=== PATIENT | male | born 1950 | race Caucasian/White ===

== ENCOUNTER 2019-05-07 10:21 | Outpatient (CLI) | payer OTHER, MEDICARE, SELFPAY ==
--- NOTE | 2019-05-07 10:39 | USCV_ITS ---
Mei Mathews Age: 68 Gender: M : 1950 Exam Date: 05/07/2019 11:05 Ordering Phys: Angel Cancino MD (Andy) ([email or web address]) Technologist: Quang Daniel Exam Location: [facility] [place] Indication: HISTORY: PAD PROCEDURES: Bilateral duplex Venous Insufficiency study of the Deep and Superficial systems was carried out according to normal protocol with the patient in supine positon for deep system and dependent position for the superficial system. FINDINGS: There is no evidence of bilateral deep vein thrombosis. No evidence of superficial thrombosis in the bilateral saphenous system. No evidence of reflux was noted in the bilateral deep venous system. No venous reflux noted in the bilateral greater saphenous vein. No venous reflux noted in the bilateral small saphenous vein. CONCLUSIONS No evidence of DVT in the above-mentioned identifiable veins. No significant venous reflux either in the deep or the superficial venous system, based on the above findings Venous dimensions and depth from the surface are as mentioned above Dr Mallorie Harmon MD FACC (Electronically Signed) Final Date: 08 May 2019 07:38 S
== END 2019-05-07 10:22 | disposition home or self-care (01) ==
LOC: RAD 10:30
PROVIDERS: Family Provider Internal Medicine; PCP Internal Medicine; Visit Provider Thoracic Surgery (Cardiothoracic Vascular Surgery)
DX: I73.9 Peripheral vascular disease, unspecified (principal); M79.605 Pain in left leg; M79.604 Pain in right leg
CPT/HCPCS: 93970

== ENCOUNTER 2020-03-07 10:08 | Outpatient (CLI) | payer OTHER, MEDICARE, SELFPAY ==
--- NOTE | 2020-03-07 10:26 | NM_ITS ---
WS: [id number] NUCLEAR MEDICINE VENTILATION/PERFUSION LUNG SCAN HISTORY: SHORTNESS OF BREATH COMPARISON: 03/07/2020 TECHNIQUE: Ventilation: 32.5 mCi of Technetium 99 DTPA aerosol inhaled. Perfusion: 5.2 mCi of technetium 99m MAA IV. Deposition of radionuclide centrally seen on the ventilatory portion. There is also radioisotope in t he upper GI tract. No unmatched defects at the lung bases. Blunting of the costophrenic angles which is matched. NM/NM pul vent and perfus* [id number] IMPRESSION: Low probability pulmonary embolism.
--- NOTE | 2020-03-07 10:26 | XR_ITS ---
WS: [id number] Exam: XR chest 2V* [id number] Date/Time of Exam: 03/07/2020 10:26 AM Reason For Exam: PRIOR TESTING TO NM TESTING/?PE No priors. The lungs are clear and fully inflated. Normal cardiomediastinal structures and bony elements. No ple ural effusions. XR/XR chest 2V* [id number] IMPRESSION: 1. No acute cardiopulmonary finding.
== END 2020-03-07 10:09 | disposition home or self-care (01) ==
PROVIDERS: PCP Emergency Medicine Emergency Medical Services; Visit Provider Emergency Medicine Emergency Medical Services
DX: R06.02 Shortness of breath (principal)
CPT/HCPCS: 71046; 78014; A9540; A9567

== ENCOUNTER 2020-03-25 09:40 | Observation (INO) | payer OTHER, SELFPAY ==
[2020-03-25] VITALS (10 sets, daily range): BP systolic 141–188; BP diastolic 79–99; PULSE 84–96; RESP 20–25; TEMP 36.4–36.7; O2SAT 92–96; BMI 25.8
[2020-03-25 10:13] LABS: Glucose Point of Care 214 mg/dL (70-110)
--- NOTE | 2020-03-25 10:20 | CT_ITS ---
WS: [id number] CT HEAD NONCONTRAST HISTORY: LOC/new onset seizure TECHNIQUE: Contiguous axial imaging performed through the brain in 2.5 mm imaging. Bone and soft tiss ue windows. Sagittal and coronal reformats reviewed. All CT scans at [facility] use at le ast one of these dose optimization techniques: automated exposure control; mA and/or kV adjustment pe r patient size (includes targeted exams where dose is matched to clinical indication); or iterative r econstruction. DLP: 2727.23 mGy.cm COMPARISON: None available. Quality of this study is limited by motion. Multiple attempts were made at achieving a study without motion. Mild atrophy and chronic ischemic disease. No evidence for an acute hemorrhage. There is no m idline shift. No large territory infarct. Bilateral cerebellar atrophy. Ventricles: Normal size with no hydrocephalus. Extensive atherosclerotic plaque in the distal vertebral and through the intracranial carotid arterie s. Paranasal sinuses: As visualized are clear. Mastoid air cells: Coalescence of the mastoid air cells with increased soft tissue. Significant incre ased soft tissue surrounding the LEFT inner ear ossicles. Calvarium and scalp: Skull is intact with no soft tissue edema or swelling. CT/CT head wo con* [id number] IMPRESSION: 1. No acute intracranial hemorrhage or edema. 2. Cerebral and cerebellar atrophy and chronic ischemic disease. No acute sulc al effacement. 3. Extensive atherosclerosis distal vertebral and intracranial carotid arterie s.
--- NOTE | 2020-03-25 10:20 | ECG_ITS ---
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 Measurements Intervals [place] Rate: 89 P: 16 MA: 121 QRS: -29 QRSD: 110 T: 76 QT: 368 QTc: 450 Interpretive Statements SINUS RHYTHM BORDERLINE LEFT AXIS DEVIATION [QRS AXIS < -20] MODERATE VOLTAGE CRITERIA FOR LVH, CONSIDER NORMAL VARIANT [MEETS CRITERIA IN ONE OF: R(aVL), S(V1), R(V5), R(V5/V6)+S(V1)] NONSPECIFIC T-WAVE ABNORMALITY No previous ECG available for comparison Electronically Signed On 03-25-2020 15:17:09 LEGAL ASSISTANT by Jazlyn Downing M.D. [id number]
[2020-03-25 10:22] LABS: Alanine Aminotransferase 51 U/L (0-41); Albumin Level 4.4 g/dL (3.5-5.2); Alkaline Phosphatase 64 IU/L (40-130); Anion Gap 20.2 (5-19); Aspartate Amino Transferase 30 U/L (0-40); Blood Urea Nitrogen 13 mg/dL (8-23); Calcium 9.2 mg/dL (8.5-10.5); Carbon Dioxide 20 mmol/L (22-29); Chloride 103 mmol/L (98-107); Creatine Phosphokinase 187 U/L (39-308); Globulin 2.3 g/dL (1.3-4.6); Glucose 235 mg/dL (65-115); Magnesium 1.7 mg/dL (1.7-2.3); Osmolality Calculated 296 mOsm/kg (285-295); Potassium 4.2 mmol/L (3.5-5.1); Sodium 139 mmol/L (136-145); Total Bilirubin 0.4 mg/dL (0.15-1.2); Total Protein 6.7 g/dL (6.6-8.7)
--- NOTE | 2020-03-25 10:27 | ED_ITS ---
HPI - Seizure General: Chief Complaint: Seizure Stated Complaint: SHAKING, SEIZURE Time Seen by Provider: 03/25/20 09:48 History of Present Illness: HPI Narrative: 69-year-old male presents emergency room via EMS. This morning he was reaching up to a shelf above the level of his head and felt like he could not move his right arm seem to be locked in the place he called out to his to help him then he seemed to feel like he was going to pass out she lowered him to the ground at that point he did actually pass out had tonic-clonic convulsive movements that lasted she said for up to 15 minutes. He did not bite his tongue he did not lose control of bowel or bladder. He does not remember all of the events but he did not really have any significant postevent confusion that would resemble post ictal state. MD complaint: possible seizure Onset (ago): minute(s) Description of Episode: loss of consciousness and tonic-clonic movement Duration of episode: 15 -: minutes(s) Witnessed: Yes - by Bystander Trauma: No Seizure History: No Place: Home Possible Precipitating Event: none Associated symptoms: Reports short of breath; Deny chest pain, chills, confusion, cough, diaphoresis, fever(s), anorexia, malaise, rash, syncope or weakness Treatments prior to arrival: none Review of Systems Const: Denies: fever(s), chills, malaise or diaphoresis ENMT: Denies: throat pain, ear or mastoid pain, nasal discharge or nasal congestion Card: Denies: chest pain or syncope Resp: Denies: dyspnea, productive cough or non-productive cough GI: Denies: abdominal pain, nausea, vomiting, hematemesis, coffee ground emesis, diarrhea, constipation, bloating, hematochezia or melena : Denies: flank pain, dysuria, urinary frequency or urinary urgency Skin/Breast: Denies: rash or pruritus Neuro: Denies: confusion PFSH ED PFSH: Medical History (Updated 03/25/20 @ 14:06 by Shorty Sadler DO) Diabetes mellitus Hypertension Sleep apnea Ventral hernia Surgical History (Updated 03/25/20 @ 10:40 by Shorty Sadler DO) H/O total hip arthroplasty Physical Exam Const: COMMON NORMALS: no acute distress GENERAL APPEARANCE: cooperative and comfortable ORIENTATION/CONSCIOUSNESS: Yes awake, Yes oriented to person, Yes oriented to place and Yes oriented to time HENMT: COMMON NORMALS: normocephalic, atraumatic and hearing grossly normal bilaterally HEAD & SCALP: normocephalic and atraumatic Neck/C-Spine: COMMON NORMALS: no JVD Resp: COMMON NORMALS: normal respiratory effort, No retractions, No use of accessory muscles and clear to auscultation bilaterally AUSCULTATION: clear to auscultation bilaterally Cardio: COMMON NORMALS: no JVD, regular rate, regular rhythm and No murmurs present (Cardio) RATE: regular rate RHYTHM: regular rhythm GI: COMMON NORMALS: Soft to palpation and No hepatosplenomegaly present AUSCULTATION: Yes normoactive bowel sounds PALPATION: Yes Soft to palpation, No Tenderness to palpation present (GI), No Guarding due to palpation present (GI) and Yes No hepatosplenomegaly present Extremity: COMMON NORMALS: normal to inspection, capillary refill normal, no clubbing, cyanosis or edema, no calf tenderness and no pedal edema Neuro: SENSORIUM/ORIENTATION: Yes oriented to person, Yes oriented to place and Yes oriented to time Skin: COMMON NORMALS: no rashes or lesions noted GENERAL SKIN EXAM: no rashes or lesions noted Course Vital Signs: Vital signs: Vital Signs Temperature 97.5 F L 03/25/20 09:41 Pulse Rate 96 03/25/20 13:00 Respiratory Rate 25 H 03/25/20 13:00 Blood Pressure 152/99 03/25/20 13:00 Pulse Oximetry 95 03/25/20 13:00 MDM - Seizure 2 MDM Narrative: Medical decision making narrative: Delta troponin of 6. His CPK is normal. I suspect he may have had a vasovagal episode after some orthostatic hypotension. He is not really had any chest pain but the delta troponin is enough to put him into an immediate risk category and he should be monitored overnight to rule out coronary source. He may need further evaluation for his possible seizure. He has a heart score of 5. We will go ahead and put him in observation for completion of the troponin rule out and further cardiac evaluation. Lab Data: Labs: Lab Results 03/25/20 03/25/20 03/25/20 Range/Units 09:50 09:50 09:50 WBC 8.2 (4.0-10.0) 10^3/ uL RBC 5.07 (4.1-5.3) 10^6/u L Hgb 15.3 (11.7-16.6) g/dL Hct 44.4 (42.0-52.0) % MCV 87.6 (80-94) fL MCH 30.2 (28.0-34.0) pg MCHC 34.5 (30.0-36.0) g/dL RDW 13.0 (12.1-15.1) % Plt Count 169 (130-400) 10^3/c mm MPV 10.3 (7.4-10.4) fL Neut % (Auto) 44.4 % Lymph % (Auto) 44.3 % Leake % (Auto) 8.5 % Eos % (Auto) 1.3 % Baso % (Auto) 0.8 % Neut # (Auto) 3.65 (1.8-7.7) 10^3/u L Lymph # (Auto) 3.7 (0.8-4.8) 10^3/u L Leake # (Auto) 0.7 (0.2-0.9) 10^3/u L Eos # (Auto) 0.1 (0.0-0.8) 10^3/u L Baso # (Auto) 0.1 (0.0-0.1) 10^3/u L Nucleated RBC % (a uto) 0 % Nucleated RBCs # 0.0 /100WBC Sodium 139 (136-145) mmol/L Potassium 4.2 (3.5-5.1) mmol/L Chloride 103 (98-107) mmol/L Carbon Dioxide 20 L (22-29) mmol/L Anion Gap 20.2 H (5-19) BUN 13 (8-23) mg/dL Creatinine 0.9 (0.7-1.2) mg/dL GFR Calculation Not Reportable Glucose 235 H (65-115) mg/dL POC Glucose (70-110) mg/dL Calculated Osmolal ity 296 H (285-295) mOsm/k g Calcium 9.2 (8.5-10.5) mg/dL Magnesium 1.7 (1.7-2.3) mg/dL Total Bilirubin 0.4 (0.15-1.2) mg/dL AST 30 (0-40) U/L ALT 51 H (0-41) U/L Alkaline Phosphata se 64 (40-130) IU/L Creatine Kinase 187 (39-308) U/L Troponin T Baselin e 30 H (0-15) ng/L Troponin T 120 Min [place] (0-15) ng/L Delta Troponin T (0-10) ABS# Total Protein 6.7 (6.6-8.7) g/dL Albumin 4.4 (3.5-5.2) g/dL Globulin 2.3 (1.3-4.6) g/dL Urine Color (Yellow) Urine Appearance (CLEAR) Urine pH (5-7) Ur Specific Gravit y (1.005-1.030) Urine Protein (Negative) Urine Glucose (UA) (Normal) Urine Ketones (Negative) Urine Blood (Negative) Urine Nitrate (Negative) Urine Bilirubin (Negative) Urine Urobilinogen (Negative) mg/dL Ur Leukocyte Hyun ase (Negative) Urine RBC (0-2) /hpf Urine WBC (0-5) /hpf Ur Squamous Epith Cells (0-5) /hpf Amorphous Sediment Urine Bacteria (NONE) /hpf Urine Mucus /hpf 03/25/20 03/25/20 03/25/20 Range/Units 10:04 12:30 12:55 WBC (4.0-10.0) 10^3/ uL RBC (4.1-5.3) 10^6/u L Hgb (11.7-16.6) g/dL Hct (42.0-52.0) % MCV (80-94) fL MCH (28.0-34.0) pg MCHC (30.0-36.0) g/dL RDW (12.1-15.1) % Plt Count (130-400) 10^3/c mm MPV (7.4-10.4) fL Neut % (Auto) % Lymph % (Auto) % Leake % (Auto) % Eos % (Auto) % Baso % (Auto) % Neut # (Auto) (1.8-7.7) 10^3/u L Lymph # (Auto) (0.8-4.8) 10^3/u L Leake # (Auto) (0.2-0.9) 10^3/u L Eos # (Auto) (0.0-0.8) 10^3/u L Baso # (Auto) (0.0-0.1) 10^3/u L Nucleated RBC % (a uto) % Nucleated RBCs # /100WBC Sodium (136-145) mmol/L Potassium (3.5-5.1) mmol/L Chloride (98-107) mmol/L Carbon Dioxide (22-29) mmol/L Anion Gap (5-19) BUN (8-23) mg/dL Creatinine (0.7-1.2) mg/dL GFR Calculation Glucose (65-115) mg/dL POC Glucose 214 (70-110) mg/dL Calculated Osmolal ity (285-295) mOsm/k g Calcium (8.5-10.5) mg/dL Magnesium (1.7-2.3) mg/dL Total Bilirubin (0.15-1.2) mg/dL AST (0-40) U/L ALT (0-41) U/L Alkaline Phosphata se (40-130) IU/L Creatine Kinase (39-308) U/L Troponin T Baselin e (0-15) ng/L Troponin T 120 Min [place] 36.42 H (0-15) ng/L Delta Troponin T 6.42 (0-10) ABS# Total Protein (6.6-8.7) g/dL Albumin (3.5-5.2) g/dL Globulin (1.3-4.6) g/dL Urine Color Yellow (Yellow) Urine Appearance Clear (CLEAR) Urine pH 5 (5-7) Ur Specific Gravit y 1.020 (1.005-1.030) Urine Protein 1+ H (Negative) Urine Glucose (UA) 2+ (Normal) Urine Ketones 1+ H (Negative) Urine Blood Neg (Negative) Urine Nitrate Negative (Negative) Urine Bilirubin Neg (Negative) Urine Urobilinogen Norm (Negative) mg/dL Ur Leukocyte Hyun ase Negative (Negative) Urine RBC None (0-2) /hpf Urine WBC None (0-5) /hpf Ur Squamous Epith Cells 0-4 H (0-5) /hpf Amorphous Sediment Not Reportable Urine Bacteria Trace (NONE) /hpf Urine Mucus 1+ /hpf Discharge Plan Discharge Patient Disposition: Placed in Observation Clinical Impression: Elevated troponin, Diabetes mellitus, Hypertension, Sleep apnea, Generalized seizure Condition: Stable Prescriptions: No Action multivitamin Tablet 1 tab PO DAILY RF: 0 Lantus U-100 Insulin 100 unit/mL Solution See Rx Instructions .ROUTE .COMPLEX RF: 0 metoprolol succinate 200 mg Tablet Extended Release 24 Hr 100 mg PO DAILY@05 RF: 0 glipizide 10 mg Tablet 10 mg PO BID@ RF: 0 Mobic 7.5 mg Tablet See Rx Instructions .ROUTE .COMPLEX RF: 0 metformin 1,000 mg Tablet 1,000 mg PO BID@, RF: 0 lisinopril 40 mg Tablet 60 mg PO DAILY@05 RF: 0 Flonase 50 mcg/actuation [place],Suspension 1 - 2 spray INTRANASAL DAILY PRN (Reason: Allergy Symptoms) RF: 0 Vitamin D3 50 mcg (2,000 unit) Tablet 50 mcg PO DAILY@05 RF: 0 Referrals: Nir Moralez DO [Primary Care Provider] - Coding Level of Care Code ED Geospatial Engineer for g Fwd Exam Comprehensive NIH stroke score NIHSS Level Of Consciousness - 1a: 0 Level Of Consciousness Questions - 1b: Both Correct Level Of Consciousness Commands - 1c: Both Correct Best Gaze - 2: Normal Visual Claros - 3: No Visual Loss Facial Palsy - 4: Normal Motor Arm Right - 5: No Drift Motor Arm Left - 5: No Drift Motor Leg Right - 6: No Drift Motor Leg Left - 6: No Drift Limb Ataxia - 7: Absent Sensory - 8: Normal Best Language - 9: No Aphasia Dysarthia - 10: Normal Extinction And Inattention - 11: 0 Score Total Score: 0
[2020-03-25 10:30] LABS: Basophils # 0.1 10^3/uL (0.0-0.1); Basophils % 0.8 %; Eosinophils # 0.1 10^3/uL (0.0-0.8); Eosinophils % 1.3 %; Hematocrit 44.4 % (42.0-52.0); Hemoglobin 15.3 g/dL (11.7-16.6); Lymphocytes # 3.7 10^3/uL (0.8-4.8); Lymphocytes % 44.3 %; Mean Corpuscular HGB Conc 34.5 g/dL (30.0-36.0); Mean Corpuscular Hemoglobin 30.2 pg (28.0-34.0); Mean Corpuscular Volume 87.6 fL (80-94); Mean Platelet Volume 10.3 fL (7.4-10.4); Monocytes # 0.7 10^3/uL (0.2-0.9); Monocytes % 8.5 %; Neutrophils # 3.65 10^3/uL (1.8-7.7); Neutrophils % 44.4 %; Nucleated Red Blood Cells % 0 %; Platelet Count 169 10^3/cmm (130-400); Red Blood Count 5.07 10^6/uL (4.1-5.3); White Blood Count 8.2 10^3/uL (4.0-10.0)
[2020-03-25 10:44] LABS: Troponin(5th) Baseline 30 ng/L (0-15)
--- NOTE | 2020-03-25 12:20 | ECG_ITS ---
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 Measurements Intervals [place] Rate: 89 P: 26 ME: 167 QRS: -23 QRSD: 110 T: 84 QT: 363 QTc: 444 Interpretive Statements SINUS RHYTHM BORDERLINE LEFT AXIS DEVIATION [QRS AXIS < -20] MINIMAL VOLTAGE CRITERIA FOR LVH, CONSIDER NORMAL VARIANT [MEETS CRITERIA IN ONE OF: R(aVL), S(V1), R(V5), R(V5/V6)+S(V1)] NONSPECIFIC T-WAVE ABNORMALITY Compared to ECG 03/25/2020 10:08:09 No significant changes Electronically Signed On 03-25-2020 17:13:07 MOTOR POLARIZER by Jazlyn Downing M.D. [id number]
[2020-03-25 13:00] LABS: Add Urine Microscopic? YES; Bilirubin Urine Neg (Negative); Blood Urine Neg (Negative); Glucose Urine UA 2+ (Normal); Ketones Urine 1+ (Negative); Leukocyte Esterase Urine Negative (Negative); Nitrate Urine Negative (Negative); Protein Urine 1+ (Negative); Urine Appearance Clear (CLEAR); Urine Color Yellow (Yellow); Urobilinogen Urine Norm (Negative); pH Urine 5 (5-7)
[2020-03-25 13:18] LABS: Add Urine Culture? No; Bacteria Urine TRACE /hpf; Mucus Urine 1+ /hpf; Squamous Epithelial Cell Urine 0-4 /hpf (0-5)
[2020-03-25 13:26] LABS: Troponin 5 2HR 36.42 ng/L (0-15); Troponin 5 2HR Delta 6.42 ABS# (0-10)
--- NOTE | 2020-03-25 16:20 | ECG_ITS ---
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 Measurements Intervals [place] Rate: 90 P: 38 VA: 168 QRS: -20 QRSD: 108 T: 95 QT: 340 QTc: 417 Interpretive Statements SINUS RHYTHM POSSIBLE LEFT VENTRICULAR HYPERTROPHY [VOLTAGE CRITERIA PLUS LAE OR QRS WIDENING] NONSPECIFIC T-WAVE ABNORMALITY Compared to ECG 03/25/2020 13:03:00 No significant changes Electronically Signed On 03-25-2020 21:14:19 RESIZER OPERATOR by Jazlyn Downing M.D. [id number]
[2020-03-25 17:36] LABS: Troponin 5 6HR 44.41 ng/L (0-15)
[2020-03-25 17:44] LABS: Troponin 5 6HR Delta 14.41 ng/L (0-12)
--- NOTE | 2020-03-25 17:52 | USCV_ITS ---
Mei Mathews Age: 69 Gender: M : 1950 Exam Date: 03/25/2020 18:16 Ordering Phys: Geoffrey Gupta MD Technologist: Quang Daniel Exam Location: [facility] [place] Indication: NSTEMI BP: 156 / 85 HR: 91 Rhythm: Sinus Technical Quality: Poor MEASUREMENTS (Male / Female) Normal Values 2D ECHO LVOT Diameter 2.1 cm LV Ejection Fraction MOD 2C 67.3 % LV Ejection Fraction 2C AL 67.7 % LA Diameter 4.2 cm LA Width 3.5 cm LA Height 4.7 cm RA Width 3.9 cm RA Height 4.8 cm Aorta at Sinotubular Diameter 3.5 cm M-MODE LV Diastolic Diameter MM 4.8 cm 4.2 - 5.9 / 3.9 - 5.3 cm LV Systolic Diameter MM 3.2 cm LV Ejection Fraction MM Teich 62.5 % IVS Diastolic Thickness MM 1.4 cm 0.6 - 1.0 / 0.6 - 0.9 cm IVS Systolic Thickness MM 2.5 cm LVPW Diastolic Thickness MM 1.5 cm 0.6 - 1.0 / 0.6 - 0.9 cm LVPW Systolic Thickness MM 2.3 cm RV Diastolic Diameter MM 1.9 cm Aortic Annulus Diameter 4.3 cm LA Ao Ratio MM 0.9 MV E Point Septal Separation 1.2 cm DOPPLER AV Peak Velocity 167.0 cm/s LVOT Peak Velocity 96.0 cm/s AV Area Cont Eq vti 2.4 cm squared AV Area Cont Eq pk 2.0 cm squared MV Area PHT 5.0 cm squared Mitral E to A Ratio 0.5 MV E' Velocity 33.0 cm/s Mitral E to MV E' Ratio 6.3 Mitral E to LV E' Lateral Ratio 5.4 Mitral E to LV E' Septal Ratio 7.7 TR Peak Velocity 165.7 cm/s TR Peak Gradient 11.0 mmHg TV Peak E Velocity 69.0 cm/s Right Atrial Pressure 3.0 mmHg Pulmonary Artery Systolic Pressu 14.0 mmHg PV Peak Velocity 115.0 cm/s FINDINGS Left Ventricle Normal left ventricular size and systolic function, EF 61 %. Mild left ventricular hypertrophy. Grade I/IV diastolic dysfunction (abnormal relaxation filling pattern), normal to mildly elevated filling pressures. Right Ventricle Possibly of normal size. Right Atrium Possibly of normal size. Left Atrium Normal left atrial size. Mitral Valve Mild mitral annular calcification. No gross abnormalities noted Aortic Valve The valve morphology could not be delineated well Tricuspid Valve The valve was not visualized well Pulmonic Valve Pulmonic valve not well visualized. Pericardium No pericardial effusion. Aorta Normal aortic annulus size. CONCLUSIONS Normal left ventricular size and systolic function, EF 61 %. Mild left ventricular hypertrophy. Grade I/IV diastolic dysfunction (abnormal relaxation filling pattern), normal to mildly elevated filling pressures. Mild mitral annular calcification. No gross abnormalities noted. There is no pericardial effusion. There are no intracardiac masses. No previous study is available for comparison. Dr Mallorie Harmon MD FACC (Electronically Signed) Final Date: 25 March 2020 20:58 S
--- NOTE | 2020-03-25 17:52 | USCV_ITS ---
Mei Mathews Age: 69 Gender: M : 1950 Exam Date: 03/25/2020 18:26 Ordering Phys: Geoffrey Gupta MD Technologist: Quang Daniel Exam Location: [facility] [place] Indication: CVA NSTEMI Risk Factors: None Previous Vascular Surgery: Right Brachial BP: / Left Brachial BP: / Right Left Velocity (cm/s) Spectral Plaque Velocity (cm/s) Spectral Plaque Syst/Diast Broadening Syst/Diast Broadening 54.50/ 10.00 Prox CCA 100.50/ 21.10 57.20/ 9.30 Hetro Mid CCA 95.50 / 18.60 Hetro 62.80/ 11.70 Timothy Distal CCA 100.50/ 22.30 Timothy 86.40/ 16.50 Hetro Prox ICA 97.50 / 16.50 Timothy 88.90/ 18.10 Hetro Mid ICA 94.90 / 23.50 Hetro 73.20/ 10.70 Distal ICA 95.80 / 27.90 109.50 ECA 97.50 1.42 ICA/CCA 0.97 Antegrade Vertebral Antegrade 60.10/ 9.10 cm/s 59.20/ 10.50 cm/s Tri Subclavian Tri 92.20 81.00 FINDINGS Moderate to dense irregular plaques at the right bifurcation and internal carotid artery. Moderate heterogeneous plaques at the left bifurcation and internal carotid artery Intimal thickening and minimal plaques in the common carotid arteries bilaterally Antegrade flow in the vertebral arteries bilaterally Normal Doppler flow velocities in the external carotid arteries bilaterally CONCLUSIONS Moderate to dense irregular plaques at the right bifurcation and internal carotid arterywith velocity elevation consistent with 16-49% stenosis. Moderate heterogeneous plaques at the left bifurcation and internal carotid artery with velocity elevation consistent with 16-49% stenosis. No previous studies are available for comparison. Dr Mallorie Harmon MD [facility] (Electronically Signed) Final Date: 25 March 2020 21:07 S
--- NOTE | 2020-03-25 18:15 | P.HP_ITS ---
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 He asked his to help bring the arm down, and subsequently looked unwell, like he was going to pass out. She laid him on the floor, and he started shaking and foaming at the mouth. She called 911. She states that after short while he stopped and was asking what is going on, subsequently again became unresponsive, with further episode of shaking. Then as soon as he came around she states that EMS had arrived. It is not clear whether in fact his mental status came back to baseline after that, and how long it may have taken. She states that EMS did not have to give him any medication, but started examining him and attaching monitor equipment. He himself denies any palpitations, denies any chest pain or pressure. Denies any past history of seizure. Currently he is doing well. does report that he has been having quite a bit of dyspnea on exertion, and gets like he ran a marathon after getting walking to a door in the room or a short hallway. He denies past history of RI or CVA. He does not take aspirin. He chronically takes Mobic, now 3 times a week after his hip surgery in 1998. In ER EKG is noted with sinus rhythm, borderline left axis deviation, moderate voltage criteria for LVH, troponin ER baseline noted at 30, 2-hour troponin noted at 36.42. He is not hypotensive, heart rates in the 80s-90. He is afebrile. He denies any cough, shortness of breath at rest, sore throat, ear nose, sneezing, muscle aches, chills. His CBC is unremarkable. Glucose is somewhat high, he has not taken any insulin today. No acute intracranial hemorrhage or edema. Cerebral and cerebellar CT head in ER shows atrophy and chronic ischemic disease. No acute sulcal effacement. Extensive atherosclerosis of the distal vertebral and intracranial carotid arteries. He has minimal left-sided facial droop which his clarifies and he agrees has been there for years after Saenz's palsy. He otherwise denies any symptoms of focal neurologic abnormalities. No meningeal symptoms. Review of Systems Const: Denies: fever(s), chills, body aches or malaise Eyes: Denies: change in vision or eye redness ENMT: Denies: throat pain, oral sores or ear or mastoid pain Card: Reports: dyspnea on exertion; Denies: chest pain, edema or pre-syncope Resp: Denies: dyspnea, productive cough, change in phlegm color or hemoptysis GI: Denies: abdominal pain, nausea, vomiting, diarrhea, constipation, hematochezia or melena : Denies: flank pain, difficulty urinating, urinary frequency or hematuria Musc: Denies: back pain, joint swelling or joint redness Skin/Breast: Denies: rash, sores or new lesions Neuro: Reports: seizure-like activity and involuntary movements; Denies: headache(s), numbness in extremities, weakness in extremities, dizziness or confusion Endo: Denies: polyuria or polydipsia Danny/Lymph: Denies: easy bleeding or purpura All/Imm: Denies: urticaria, throat swelling or tongue swelling Medications/Allergies Home Medications Medication Instructions Recorded Confirmed Last Taken Type cholecalciferol (vitamin D3) 50 mcg PO DAILY@05 03/25/20 03/25/20 03/24/20 History [Vitamin D3] fluticasone propionate [Flonase] 1 - 2 spray INTRANASAL DAILY PRN 03/25/20 03/25/20 Unknown History glipizide 10 mg PO BID@,18 03/25/20 03/25/20 03/24/20 History insulin glargine [Lantus U-100 See Rx Instructions .ROUTE .COMPLEX 03/25/20 03/25/20 03/24/20 History Insulin] lisinopril 60 mg PO DAILY@05 03/25/20 03/25/20 03/24/20 History meloxicam [Mobic] See Rx Instructions .ROUTE .COMPLEX 03/25/20 03/25/20 Unknown History metformin 1,000 mg PO BID@,18 03/25/20 03/25/20 03/24/20 History metoprolol succinate 100 mg PO DAILY@05 03/25/20 03/25/20 03/24/20 History multivitamin 1 tab PO DAILY 03/25/20 03/25/20 Unknown History Allergies Allergy/AdvReac Type Severity Reaction Status Date / Time No Known Allergies Allergy Verified 03/25/20 11:15 PFSH Acute PFSH: Medical History Saenz's palsy L side Diabetes mellitus Hypertension ALANNAH (obstructive sleep apnea) HS CPAP Sleep apnea Ventral hernia Surgical History H/O total hip arthroplasty Family History Father Stroke Social History Smoking and tobacco status: former smoker Alcohol intake: never Substance/Drug Use: never Household members: spouse Marital status: Vitals/I&O/Wt Last Vital Signs Temp 97.8 F 03/25/20 17:17 Pulse 94 03/25/20 17:17 Resp 20 H 03/25/20 17:17 BP 165/81 03/25/20 17:17 Pulse Ox 96 03/25/20 17:17 Weight last 48 hrs Weight 81.647 kg Physical Exam Const: COMMON NORMALS: no acute distress, patient oriented x3 and alert GENERAL APPEARANCE: cooperative NUTRITIONAL APPEARANCE: obese ORIENTA TION/CONSCIOUSNESS: Yes awake OTHER: at bedside. HENMT: COMMON NORMALS: oropharynx normal Neck/C-Spine: COMMON NORMALS: no JVD Resp: COMMON NORMALS: normal respiratory effort and clear to auscultation bilaterally AUSCULTATION: clear to auscultation bilaterally Cardio: COMMON NORMALS: no JVD, regular rhythm, S1 normal heart sound present, S2 normal heart sound present and No murmurs present (Cardio) RHYTHM: regular rhythm HEART SOUNDS: S1 normal heart sound present and S2 normal heart sound present GI: COMMON NORMALS: Normal to inspection, nondistended, normoactive bowel sounds present, Soft to palpation and non-tender PALPATION: Yes Soft to palpation Extremity: COMMON NORMALS: no joint enlargement GENERAL: Yes edema (2+ bilateral below knees) OTHER: Chronic venous stasis dermatitis Neuro: COMMON NORMALS: patient oriented x3 and moves all extremities Skin: COMMON NORMALS: no rashes or lesions noted GENERAL SKIN EXAM: no rashes or lesions noted Data : 03/25/20 09:50 03/25/20 09:50 A&P Assessment and plan (1) NSTEMI (non-ST elevated myocardial infarction): Troponin elevation, 30 at baseline-44.416 hours, 14.4 delta. He has no chest pain, however, with multiple risk factors, including HTN, HLD, DM 2, history of vascular disease in his father, former smoker, obesity, recently with progressive dyspnea on exertion, is at elevated risk of coronary disease. Non- STEMI possible. Due to this we will start on aspirin, anticoagulation, continue metoprolol. Start statin. Discussed with cardiology. Will obtain TTE. Stress test would be additional assessment, however, cardiology will assess prior to stress test, and echocardiogram should be assessed to exclude conditions that may include stress test. For now stress test is ordered to allow for scheduling, however, prior to proceeding please confirm with Dr. Harmon. Contacted mold maintenance technician and he will perform the echo tonight. Status: Acute (2) Generalized seizure: Seizure-like activity at home, with episode of unresponsiveness, shaking, foaming at the mouth . Not entirely clear whether this is actually a seizure. states that in the middle of the episode he came to was asking where he is at and was, none, subsequently became unresponsive for a while longer, with machine activity. As discussed with him and his , seizure is a possibility. Apart from that possible syncope or cardiac arrest, perhaps with non-STEMI, versus bradycardia or tachyarrhythmia. EKG not revealing so far apart from possible LVH. Blood pressure is good. Glucose this morning was not low. He does not have bite aly on his tongue. Did not lose urinary continence. CK is only 187. Discussed with him due to unclear etiology, at this time will work-up regarding possible non-STEMI as above. Subsequently after discharge would benefit from outpatient EEG, MRI. Possible neurological assessment in office. May benefit from cardiac monitoring after discharge. We will assess carotid Doppler given significant atherosclerosis of vertebral and carotid arteries noted on plain CT head. Check orthostatic hypotension. TSH. Status: Acute (3) Hypertension: Blood pressure not optimally controlled, says that recently his lisinopril dose was increased. He does take chronically Mobic. Discussed with him consideration of cutting down and discontinuing this medication due to multiple risk factors it may be associated with. Monitor blood pressure. Continue lisinopril. Metoprolol. Cardiac diet. Status: Acute (4) Diabetes mellitus: Continue insulin, will reduce somewhat long-acting insulin to prevent hypoglycemia. Insulin sliding scale. Consistent carbohydrate diet. Status: Acute (5) Sleep apnea: CPAP with sleep. Status: Acute Attestations Medical Necessity Statement*: Place in observation. Coding Level of Care Code Acute [employer] [facility] Diagnoses NSTEMI (non-ST elevated myocardial infarction) I21.4 Generalized seizure R56.9 Hypertension I10 Diabetes mellitus E11.9 Sleep apnea G47.30
[2020-03-25] MEDS: aspirin 325 mg Tablet PO (18:24)
[2020-03-25] MEDS: enoxaparin 80 mg/0.8 mL Syringe SUBCUT (18:25)
--- NOTE | 2020-03-25 19:38 | PM.CONSULT ---
Providers/Reason For Consult Consulting Physican/Specialty*: KIMBERLY Harmon MD/cardiology Reason for Consult*: Patient with multiple risk factors for coronary artery disease, presenting with syncope and elevated troponin T Attending Physician: Geoffrey Gupta Primary Care Provider: Nir Moralez DO History of Present Illness History of Present Illness Mei Mathews is a 69 year old male with a history of hypertension, type 2 diabetes and dyslipidemia, had an episode of seizure-like activity and syncope this morning. His initial troponin T was 30 which went up to 36 in 2 hours and 44 in 6 hours. . Apparently has been in his baseline state of health up until 8:00 this morning when while he was reaching out to a cabinet above his head to take out a cereal box, felt like the arm getting locked up. He called out his to come and get his arm down. While trying to help him out, the noticed him getting listless. She helped him to lie down on the floor. Apparently at that point, he had a tonic-clonic type of seizure activity with foaming in the mouth. This might have lasted for 15 minutes or so. Following this, he briefly came back to himself. Then he went into an unresponsive state for couple of minutes. His called the ambulance and subsequently he was brought to the hospital. He has not had any recurrence of seizure activity or syncopal episodes since then. Patient has no previous history for any seizure disorders. No history for coronary artery disease, myocardial infarction or congestive heart failure. He has a longstanding history of hypertension. Lately the blood pressure has been staying out of control. He had some recent medication changes. He also is known to have type 2 diabetes and dyslipidemia. He was on a statin drug for a while. But because of some problems with the kidney, he was taken off the medication. Details are not available. He also is known to have obstructive sleep apnea, Saenz's palsy, degenerative joint disease. Denies any fever or chills. No cough. No other specific complaints. Review of Systems Narrative: CONSTITUTIONAL: No fever or chills. EYES: No blurring of vision or other visual disturbances lately. ENT: No hoarseness of voice, auditory disturbances or sore throat. CARDIOVASCULAR: As mentioned above. Had a stress test many years ago before his hip surgery and was told to be okay RESPIRATORY: No significant cough. GASTROINTESTINAL: No hematemesis or melena. GENITOURINARY: No dysuria or hematuria. INTEGUMENTARY: No skin rashes or history of skin cancer. NEURO: History of Saenz's palsy PSYCHIATRIC: No history of psychosis or major depression. HEMATOLOGIC: No bleeding disorders or significant anemia. ENDOCRINE: Type 2 diabetes MUSCULOSKELETAL: History of degenerative joint disease ALLERGY/IMMUNOLOGY: As mentioned above. Meds/Allergies Home Medications and Allergies Home Medications Medication Instructions Recorded Confirmed Last Taken Type cholecalciferol (vitamin D3) 50 mcg PO DAILY@05 03/25/20 03/25/20 03/24/20 History [Vitamin D3] fluticasone propionate [Flonase] 1 - 2 spray INTRANASAL DAILY PRN 03/25/20 03/25/20 Unknown History glipizide 10 mg PO BID@03/25/20 03/25/20 03/24/20 History insulin glargine [Lantus U-100 See Rx Instructions .ROUTE .COMPLEX 03/25/20 03/25/20 03/24/20 History Insulin] lisinopril 60 mg PO DAILY@05 03/25/20 03/25/20 03/24/20 History meloxicam [Mobic] See Rx Instructions .ROUTE .COMPLEX 03/25/20 03/25/20 Unknown History metformin 1,000 mg PO BID@03/25/20 03/25/20 03/24/20 History metoprolol succinate 100 mg PO DAILY@05 03/25/20 03/25/20 03/24/20 History multivitamin 1 tab PO DAILY 03/25/20 03/25/20 Unknown History Allergies Allergy/AdvReac Type Severity Reaction Status Date / Time No Known Allergies Allergy Verified 03/25/20 11:15 Current Medications Current Medications Generic Name Dose Route Start Last Admin Trade Name Freq PRN Reason Stop Dose Admin Enoxaparin Sodium 80 mg 03/25/20 18:30 03/25/20 18:25 Enoxaparin 80 Mg/0.8 Ml Syringe SUBCUT 80 mg Q12H DANIELA Administration PFSH Acute PFSH: Medical History Saenz's palsy L side Diabetes mellitus Hypertension ALANNAH (obstructive sleep apnea) HS CPAP Sleep apnea Ventral hernia Surgical History H/O total hip arthroplasty Family History Father Stroke Social History Smoking and tobacco status: former smoker Alcohol intake: never Substance/Drug Use: never Household members: spouse Marital status: Vitals/I&O/Wt Last Vital Signs Temp 97.8 F 03/25/20 17:17 Pulse 94 03/25/20 17:17 Resp 20 H 03/25/20 17:17 BP 165/81 03/25/20 17:17 Pulse Ox 96 03/25/20 17:17 03/25/20 03/25/20 03/25/20 06:59 14:59 22:59 Intake Total 240 / 240 Balance 240 / 240 Weight last 48 hrs Weight 180 lb Physical Exam Narrative: EXAM NARRATIVE: GENERAL: The patient is alert and oriented times three. Not in any acute distress. HEENT: No significant pallor, icterus or lymphadenopathy. The pupils are reactant to light. Oral cavity: There are no mucous membrane lesions. Funduscopic examination: The fundus is not visualized. Minimal left-sided facial droop NECK: Trachea appears to be central. No masses noted. No JVD or thyromegaly appreciated. No carotid bruit. RESPIRATORY: Chest is symmetrical. No intercostals muscle retraction or any accessory muscle activation. There is no chest wall tenderness. Breath sounds are heard bilaterally. No rales or rhonchi heard. No evidence of any consolidation. BREASTS: Deferred. HEART: The PMI could not be palpated. No other palpable precordial events. First second heart sounds are normal. No S3 or S4. No significant murmurs. No pericardial rub. ABDOMEN: Moderately obese. No vessel pulsations or distention. No tenderness. No organomegaly appreciated. No abdominal bruit. Bowel sounds are normally heard. : Deferred. RECTAL: Deferred. LYMPHATIC: No lymphadenopathy noted in the neck or groin. EXTREMITIES: No edema or cyanosis. No clubbing. The pulses are symmetrical bilaterally. The radial, femoral, dorsalis pedis and the posterior tibial pulses are palpated and found to be in good volume and amplitude. MUSCULOSKELETAL: No acute joint deformities or swelling. SKIN: There are no significant scars or skin rash noted. NEUROPSYCHIATRIC: The patient is alert and oriented x3. Appears to be in a good mood. The higher functions are grossly within normal limits. No tremors or rigidity noted. Data Labs: Other Labs: Laboratory Last Values WBC 8.2 10^3/uL (4.0- 10.0) 03/25/20 09:50 RBC 5.07 10^6/uL (4.1 -5.3) 03/25/20 09:50 Hgb 15.3 g/dL (11.7-1 6.6) 03/25/20 09:50 Hct 44.4 % (42.0-52.0 ) 03/25/20 09:50 MCV 87.6 fL (80-94) 03/25/20 09:50 MCH 30.2 pg (28.0-34. 0) 03/25/20 09:50 MCHC 34.5 g/dL (30.0-3 6.0) 03/25/20 09:50 RDW 13.0 % (12.1-15.1 ) 03/25/20 09:50 Plt Count 169 10^3/cmm (130 -400) 03/25/20 09:50 MPV 10.3 fL (7.4-10.4 ) 03/25/20 09:50 Neut % (Auto) 44.4 % 03/25/20 09:50 Lymph % (Auto) 44.3 % 03/25/20 09:50 [place] % (Auto) 8.5 % 03/25/20 09:50 Eos % (Auto) 1.3 % 03/25/20 09:50 Baso % (Auto) 0.8 % 03/25/20 09:50 Neut # (Auto) 3.65 10^3/uL (1.8 -7.7) 03/25/20 09:50 Lymph # (Auto) 3.7 10^3/uL (0.8- 4.8) 03/25/20 09:50 [place] # (Auto) 0.7 10^3/uL (0.2- 0.9) 03/25/20 09:50 Eos # (Auto) 0.1 10^3/uL (0.0- 0.8) 03/25/20 09:50 Baso # (Auto) 0.1 10^3/uL (0.0- 0.1) 03/25/20 09:50 Nucleated RBC % (a uto) 0 % 03/25/20 09:50 Nucleated RBCs # 0.0 /100WBC 03/25/20 09:50 Sodium 139 mmol/L (136-1 45) 03/25/20 09:50 Potassium 4.2 mmol/L (3.5-5 .1) 03/25/20 09:50 Chloride 103 mmol/L (98-10 7) 03/25/20 09:50 Carbon Dioxide 20 mmol/L (22-29) L 03/25/20 09:50 Anion Gap 20.2 (5-19) H 03/25/20 09:50 BUN 13 mg/dL (8-23) 03/25/20 09:50 Creatinine 0.9 mg/dL (0.7-1. 2) 03/25/20 09:50 GFR Calculation Not Reportable 03/25/20 09:50 Glucose 235 mg/dL (65-115 ) H 03/25/20 09:50 POC Glucose 214 mg/dL (70-110 ) 03/25/20 10:04 Calculated Osmolal ity 296 mOsm/kg (285- 295) H 03/25/20 09:50 Calcium 9.2 mg/dL (8.5-10 .5) 03/25/20 09:50 Magnesium 1.7 mg/dL (1.7-2. 3) 03/25/20 09:50 Total Bilirubin 0.4 mg/dL (0.15-1 .2) 03/25/20 09:50 AST 30 U/L (0-40) 03/25/20 09:50 ALT 51 U/L (0-41) H 03/25/20 09:50 Alkaline Phosphata se 64 IU/L (40-130) 03/25/20 09:50 Creatine Kinase 187 U/L (39-308) 03/25/20 09:50 Troponin T Baselin e 30 ng/L (0-15) H 03/25/20 09:50 Troponin T 120 Min jose manuel 36.42 ng/L (0-15) H 03/25/20 12:55 Delta Troponin T 6.42 ABS# (0-10) 03/25/20 12:55 Troponin T Hi Sens 6Hr 44.41 ng/L (0-15) H 03/25/20 16:20 Troponin T Hi Sens 6Hr Delta 14.41 ng/L (0-12) H* 03/25/20 16:20 Total Protein 6.7 g/dL (6.6-8.7 ) 03/25/20 09:50 Albumin 4.4 g/dL (3.5-5.2 ) 03/25/20 09:50 Globulin 2.3 g/dL (1.3-4.6 ) 03/25/20 09:50 Urine Color Yellow (Yellow) 03/25/20 12:30 Urine Appearance Clear (CLEAR) 03/25/20 12:30 Urine pH 5 (5-7) 03/25/20 12:30 Ur Specific Gravit y 1.020 (1.005-1.0 30) 03/25/20 12:30 Urine Protein 1+ (Negative) H 03/25/20 12:30 Urine Glucose (UA) 2+ (Normal) 03/25/20 12:30 Urine Ketones 1+ (Negative) H 03/25/20 12:30 Urine Blood Neg (Negative) 03/25/20 12:30 Urine Nitrate Negative (Negati ve) 03/25/20 12:30 Urine Bilirubin Neg (Negative) 03/25/20 12:30 Urine Urobilinogen Norm mg/dL (Negat migdalia) 03/25/20 12:30 Ur Leukocyte Hyun ase Negative (Negati ve) 03/25/20 12:30 Urine RBC None /hpf (0-2) 03/25/20 12:30 Urine WBC None /hpf (0-5) 03/25/20 12:30 Ur Squamous Epith Cells 0-4 /hpf (0-5) H 03/25/20 12:30 Amorphous Sediment Not Reportable 03/25/20 12:30 Urine Bacteria Trace /hpf (NONE) 03/25/20 12:30 Urine Mucus 1+ /hpf 03/25/20 12:30 Imaging^: CT Head: Radiologist's impression: 1. No acute intracranial hemorrhage or edema. 2. Cerebral and cerebellar atrophy and chronic ischemic disease. No acute sulcal effacement. 3. Extensive atherosclerosis distal vertebral and intracranial carotid arteries. EKG^: EKG 1: My Interpretation: The EKG revealed a sinus rhythm with left axis deviation, LVH, nonspecific T wave changes A&P Assessment and plan (1) Elevated troponin level: The etiology of the elevated troponin T is not clear at this time. Possibility of a non-ST relation myocardial infarction causing this is a consideration especially in view of the multiple risk factors for coronary artery disease. The EKG changes are nonspecific. Hemodynamically seems to be stable. An echocardiogram would be helpful to further evaluate the cardiac status. If the echocardiogram is unremarkable, may consider doing a myocardial perfusion imaging to evaluate for any underlying coronary ischemia Status: Acute (2) Syncope: Exact etiology of the syncope is not known at this point. It could be part of the seizure disorder. A vasovagal reaction or cardiac arrhythmia causing this also are considerations. This may need to be further evaluated. Status: Acute Qualifiers: Syncope type: unspecified Qualified Code(s): R55 - Syncope and collapse (3) Generalized seizure: The etiology of the seizure is not known at this point. Episode of arm locking up followed by the seizure activity may suggest a primary MEDICAL LIAISON etiology. Patient apparently was found to be hyperglycemic in the emergency room. Patient is to be closely monitored on telemetry. Status: Acute (4) Hypertension: Currently the blood pressure is a stage II. We will try to optimize antihypertensive medications. Status: Acute Qualifiers: Hypertension type: essential hypertension Qualified Code(s): I10 - Essential (primary) hypertension (5) Diabetes mellitus: The blood sugar is elevated. This needs to be closely monitored. Status: Acute Qualifiers: Diabetes mellitus complication status: with hyperglycemia Diabetes mellitus intermediate card tender insulin use: without skilled nursing use Diabetes mellitus type: type 2 Qualified Code(s): E11.65 - Type 2 diabetes mellitus with hyperglycemia Coding Level of Care Code Acute [facility] Diagnoses Elevated troponin level R77.8 Syncope R55 Syncope type: unspecified Generalized seizure R56.9 Hypertension I10 Hypertension type: essential hypertension Diabetes mellitus E11.65 Diabetes mellitus complication status: with hyperglycemia Diabetes mellitus intermediate card tender insulin use: without skilled nursing use Diabetes mellitus type: type 2
[2020-03-25 20:38] LABS: Glucose Point of Care 199 mg/dL (70-110)
[2020-03-25] MEDS: atorvastatin 40 mg Tablet PO (21:46)
[2020-03-26] VITALS (13 sets, daily range): BP systolic 136–177; BP diastolic 70–94; PULSE 71–96; RESP 16–24; TEMP 36.6–37.3; O2SAT 93–95
[2020-03-26 05:18] LABS: Basophils # 0.1 10^3/uL (0.0-0.1); Basophils % 0.7 %; Eosinophils # 0.1 10^3/uL (0.0-0.8); Eosinophils % 1.5 %; Hematocrit 41.1 % (42.0-52.0); Lymphocytes # 1.9 10^3/uL (0.8-4.8); Lymphocytes % 28.5 %; Mean Corpuscular HGB Conc 34.1 g/dL (30.0-36.0); Mean Corpuscular Hemoglobin 29.7 pg (28.0-34.0); Mean Corpuscular Volume 87.3 fL (80-94); Mean Platelet Volume 10.2 fL (7.4-10.4); Monocytes # 0.6 10^3/uL (0.2-0.9); Monocytes % 9.1 %; Neutrophils # 4.01 10^3/uL (1.8-7.7); Neutrophils % 59.9 %; Nucleated Red Blood Cells % 0 %; Platelet Count 160 10^3/cmm (130-400); Red Blood Count 4.71 10^6/uL (4.1-5.3); White Blood Count 6.7 10^3/uL (4.0-10.0)
[2020-03-26 05:43] LABS: Alanine Aminotransferase 48 U/L (0-41); Albumin Level 3.9 g/dL (3.5-5.2); Alkaline Phosphatase 58 IU/L (40-130); Anion Gap 14.7 (5-19); Aspartate Amino Transferase 29 U/L (0-40); Blood Urea Nitrogen 11 mg/dL (8-23); Calcium 8.9 mg/dL (8.5-10.5); Carbon Dioxide 24 mmol/L (22-29); Chloride 104 mmol/L (98-107); Globulin 2.4 g/dL (1.3-4.6); Glucose 113 mg/dL (65-115); Osmolality Calculated 288 mOsm/kg (285-295); Potassium 3.7 mmol/L (3.5-5.1); Sodium 139 mmol/L (136-145); Total Bilirubin 0.5 mg/dL (0.15-1.2); Total Protein 6.3 g/dL (6.6-8.7)
[2020-03-26 05:44] LABS: Magnesium 1.8 mg/dL (1.7-2.3); Thyroid Stimulating Hormone 1.96 uIU/mL (0.27-4.20)
[2020-03-26] MEDS: lisinopril 20 mg Tablet 60 MG PO (05:49)
[2020-03-26] MEDS: enoxaparin 80 mg/0.8 mL Syringe SUBCUT ×2 (05:49→17:32)
[2020-03-26 06:25] LABS: Glucose Point of Care 154 mg/dL (70-110)
--- NOTE | 2020-03-26 07:00 | NMCV_ITS ---
NM jamar perf SPECT r/s* [id number] Mei Mathews Age: 69 Gender: M : 1950 Exam Date: 03/26/2020 07:00 Ordering Phys: Geoffrey Gupta MD Technologist: DEMETRIUS Campbell Exam Location: [facility] Indications: SHAKING, SEIZURE STRESS TEST Please see separate stress test report in [facility] for full findings IMAGE PROTOCOL Rest/Stress 1 Lexiscan Day Radiopharmaceutical Dose (mCi) Administration Site Administered by Rest: Tc-99m 10.4 IV DEMETRIUS Campbell Sestamibi Stress:Tc-99m 32.6 IV DEMETRIUS De La Torre Sestamibi Rest: 26-Mar-2020 60 Discovery 630 Stress: 26-Mar-2020 30 Discovery 630 0.4mg Lexiscan. Images obtained in supine and prone position. SPECT RESULTS Technical Quality: Excellent Raw Data Analysis: Normal Image Corrections: No attenuation or motion correction applied Summed Stress Score: 0 Summed Rest Score: 0 Summed Difference Score: 0 PERFUSION FINDINGS Uniform myocardial tracer uptake with no significant perfusion abnormalities. FUNCTIONAL RESULTS (calculated via Gated SPECT) Stress Image LV EF (%): 64 Stress EDV (mL):135 TID: 1.01 Stress ESV (mL):48 FUNCTIONAL FINDINGS: 1. Unremarkable myocardial perfusion imaging 2. LV wall motion analysis revealing no gross wall motion abnormalities 3. LV ejection fraction estimated to be 64%. 4. Normal LV volume. No significant coronary ischemia, based on the above findings IMPRESSIONS Dr Mallorie Harmon MD [facility] (Electronically Signed) Final Date: 26 March 2020 15:54 S
[2020-03-26 11:08] LABS: Glucose Point of Care 130 mg/dL (70-110)
--- NOTE | 2020-03-26 12:00 | ECG_ITS ---
[facility] Test Date: 2020-03-26 Pat Name: Mei Mathews Department: Room: 251 Gender: Male Pole Tester: : 1950 Requested By: Geoffrey Gupta Order Number: [id number] Steve MD: Mallorie Harmon M.D. Interpretive Statements NAME OF STUDY: LEXISCAN SESTAMIBI STRESS TEST INDICATION: Chest Pain, PROCEDURE: At the baseline, the EKG revealed normal sinus rhythm with left axis deviation. Nonspecific T wave changes. The baseline blood pressure was 175/96 mm Hg with a heart rate of 75 beats/min. Lexiscan was infused over a period of 20 seconds. A total of 0.4 milligrams of Lexiscan was infused. The stress phase was continued for a total of 5 minutes. Heart rate at the end of the stress phase was 84 with a blood pressure 173/89. The EKG at the peak infusion revealed no significant changes. Sestamibi was injected 20 seconds after the Lexiscan infusion. Blood pressure at the end of the recovery phase was 167/88 with a heart rate of 85 per minute. CONCLUSION: 1. No significant EKG changes with the LexiScan infusion 2. No LexiScan induced chest pain or cardiac arrhythmia 3. Normal blood pressure and heart rate response 4. Sestamibi/sestamibi perfusion scan pending; see separate report. Electronically Signed On 03-26-2020 19:48:34 YOUTH CAREER SPECIALIST by Mallorie Harmon M.D. [email or web address]
[2020-03-26] MEDS: regadenoson 0.4 Mg/5 ml Syringe IVP (12:46)
--- NOTE | 2020-03-26 14:06 | PC.CHAP ---
Pastoral Care Encounter/Spiritual Assessment Type of Contact [] Declined plunket nurse visit [] Patient/Family/Request visit [] Outpatient visit [] Follow-up visit [] Physician referral [] Code/Alert [x] Routine visit [] Staff referral [] Actively dying [] Patient sleeping [] Family support [] [] Out of room [] Palliative care [] [] Receiving care in room [] Pre-surgical visit [] Trauma [] Long length of stay [] ICU visit [] Other: Relational/Emotional Strength [] Patient feels connected with others/family/visitors/staff [] Distress [] Loneliness/isolation [] Abandonment Spirituality of Patient [] Person of Mel [] Attends Judaism of their Mel [] Believes in Prayer [] Reads Bible or Jewish materials [] There are Spiritual issues to be addressed Radio Antenna Installer Interventions [] Prayer [] Active listening [] Non-anxious presence [] Spiritual/emotional support [] Crisis/trauma care [] Spiritual counseling [] Bereavement support [] Provided bereavement packet [] Provided Bible/devotional materials [] Provided toy/stuffed animal, coloring book to patient or family member [] Provided Communion [] Anointing/Gladys [] Salvation [] Completed spiritual assessment [] Other: Impact on Illness or Injury [] Angry [] Fearful [] Anxious [] Often cries [] Exhaustion [] Unable to work [] Unable to attend mandaeism [] Unable to walk/stand [] Unable to read [] Unable to drive [] Unable to eat/drink [] Unable to sleep [] Unable to be with family [] Patient intubated [] Other: Summary Time spent with patient
--- NOTE | 2020-03-26 14:54 | P.PN_ITS ---
Subjective Subjective: Interval history: Patient reports feeling better this point. Denies shortness of breath or chest pain. Denies abdominal pain or problems with bowel movement. Reports that he has been all this dyspneic with exertion even when he walks on a flat surface. Reports that long time ago he has been taking aspirin for 6 months precautionary , prescribed by Dr. Rico. Repo rts that currently he is getting his care at the [place] facility and his cholesterol medication was discontinued because of kidneys . He denies any previous history of coronary intervention. On exam patient has no focal neurological findings. He has no cerebellar signs and has good peripheral vision. His right upper extremity getting locked while he was trying to reach a cabinet is somewhat unusual for seizure. Reports that he knew that he is going down as his was approaching him as he was getting more lightheaded. Vitals/I&O/Wt Last Vital Signs Temp 98.1 F 03/26/20 11:02 Pulse 82 03/26/20 12:47 Resp 18 03/26/20 11:02 BP 151/71 03/26/20 12:47 Pulse Ox 95 03/26/20 11:02 03/25/20 03/26/20 03/26/20 22:59 06:59 14:59 Intake Total 240 / 240 Balance 240 / 240 Weight last 48 hrs Weight 123.422 kg Weight 81.647 kg Physical Exam Const: COMMON NORMALS: no acute distress and patient oriented x3 Resp: COMMON NORMALS: normal respiratory effort and clear to auscultation bilaterally AUSCULTATION: clear to auscultation bilaterally Cardio: COMMON NORMALS: regular rate, regular rhythm and S2 normal heart sound present RATE: regular rate RHYTHM: regular rhythm HEART SOUNDS: S2 normal heart sound present OTHER: 1+ lower extremity edema GI: COMMON NORMALS: Normal to inspection, nondistended, normoactive bowel s ounds present, Soft to palpation and non-tender PALPATION: Yes Soft to palpation Neuro: COMMON NORMALS: patient oriented x3 and no focal motor deficits Data : 03/26/20 04:09 03/26/20 04:09 A&P Assessment and plan (1) NSTEMI (non-ST elevated myocardial infarction): Troponin elevation, 30 at baseline-44.416 hours, 14.4 delta. He has no chest pain, however, with multiple risk factors, including HTN, HLD, DM 2, history of vascular disease in his father, former smoker, obesity, recently with progressive dyspnea on exertion, is at elevated risk of coronary disease. Non- STEMI possible. Due to this we will start on aspirin, anticoagulation, continue metoprolol. Start statin. Discussed with cardiology. Will obtain TTE. Stress test would be additional assessment, however, cardiology will assess prior to stress test, and echocardiogram should be assessed to exclude conditions that may include stress test. For now stress test is ordered to allow for scheduling, however, prior to proceeding please confirm with Dr. Harmon. Contacted solar panel technician and he will perform the echo tonight. Status: Acute (2) Generalized seizure: Seizure-like activity at home, with episode of unresponsiveness, shaking, foaming at the mouth . Not entirely clear whether this is actually a seizure. states that in the middle of the episode he came to was asking where he is at and was, none, subsequently became unresponsive for a while longer, with machine activity. As discussed with him and his , seizure is a possibility. Apart from that possible syncope or cardiac arrest, perhaps with non-STEMI, versus bradycardia or tachyarrhythmia. EKG not revealing so far apart from possible LVH. Blood pressure is good. Glucose this morning was not low. He does not have bite aly on his tongue. Did not lose urinary continence. CK is only 187. Discussed with him due to unclear etiology, at this time will work-up regarding possible non-STEMI as above. Subsequently after discharge would benefit from outpatient EEG, MRI. Possible neurological assessment in office. May benefit from cardiac monitoring after discharge. We will assess carotid Doppler given significant atherosclerosis of vertebral and carotid arteries noted on plain CT head. Check orthostatic hypotension. TSH. Status: Acute (3) Hypertension: Blood pressure not optimally controlled, says that recently his lisinopril dose was increased. He does take chronically Mobic. Discussed with him consideration of cutting down and discontinuing this medication due to multiple risk factors it may be associated with. Monitor blood pressure. Continue lisinopril. Metoprolol. Cardiac diet. Status: Acute Qualifiers: Hypertension type: essential hypertension Qualified Code(s): I10 - Essential (primary) hypertension (4) Diabetes mellitus: Continue insulin, will reduce somewhat long-acting insulin to prevent hypoglycemia. Insulin sliding scale. Consistent carbohydrate diet. Status: Acute Qualifiers: Diabetes mellitus complication status: with hyperglycemia Diabetes mellitus emt intermediate insulin use: without emt intermediate use Diabetes mellitus type: type 2 Qualified Code(s): E11.65 - Type 2 diabetes mellitus with hyperglycemia (5) Sleep apnea: CPAP with sleep. Status: Acute Additional A&P Information PLAN: We will start patient on 81 mg aspirin. Change Lovenox to therapeutic dose. Continue statin and consider repeating labs in several weeks. He ambulates without any problems. He shows no evidence of focal neurological findings. Patient is definitely a high risk for underlying coronary artery disease. Awaiting stress test results. Should there be concerning findings requiring further intervention/treatment then admission status will need to be changed to inpatient otherwise patient may need to be discharged home. Attestations Medical Necessity Statement*: Patient requires hospitalization for further monitoring, evaluation and treatment until deemed safe for discharge. Coding Level of Care Code Acute Child Care Coordinator for [facility] Diagnoses NSTEMI (non-ST elevated myocardial infarction) I21.4 Generalized seizure R56.9 Hypertension I10 Hypertension type: essential hypertension Diabetes mellitus E11.65 Diabetes mellitus complication status: with hyperglycemia Diabetes mellitus emt intermediate insulin use: without emt intermediate use Diabetes mellitus type: type 2 Sleep apnea G47.30
[2020-03-26 16:59] LABS: Glucose Point of Care 195 mg/dL (70-110)
--- NOTE | 2020-03-26 19:28 | P.PN_ITS ---
Subjective Subjective: Interval history: Patient has been doing okay with no recurrence of syncope. No chest pain or palpitations. Telemetry shows no significant arrhythmias. Vital signs remained stable. No new symptoms. Patient underwent myocardial perfusion imaging today. He was found to have no evidence of ischemia, based on the perfusion scan. Medications: Reviewed: Yes Medication Review Details: Current Medications Acetaminophen (Acetaminophen 325 Mg Tablet) 650 mg PO Q6H PRN PRN Reason: Mild/Mod Pain Or Temp >/= 101 Aminophylline (Aminophylline 25 Mg/Ml Sdv 10 Ml) 25 mg IVP Q2M PRN PRN Reason: see dose instructions Stop: 03/27/20 06:44 Atorvastatin Calcium (Atorvastatin 40 Mg Tablet) 40 mg PO BEDTIME [facility] Last Admin: 03/25/20 21:46 Dose: 40 mg Documented by: Dextrose (Dextrose 50% Syringe 50 Ml) 25 ml IVP ONCE PRN; Protocol PRN Reason: hypoglycemia protocol Dextrose (Dextrose 50% Syringe 50 Ml) 50 ml IVP PRN PRN; Protocol PRN Reason: hypoglycemia protocol Enoxaparin Sodium (Enoxaparin 80 Mg/0.8 Ml Syringe) 80 mg SUBCUT Q12H [facility] Last Admin: 03/26/20 17:32 Dose: 80 mg Documented by: Fluticasone Propionate (Fluticasone Nasal [place] 16gm Btl) 1 spray INTRANASAL DAILY PRN PRN Reason: Allergy Symptoms Glucagon (Glucagon 1 Mg/Ml Inj 1 Ml) 1 mg IM ONCE PRN; Protocol PRN Reason: Adult Acute Hypoglycemia Prot. Dextrose (D5w) 500 mls @ 100 mls/hr IV ONCE PRN; Protocol PRN Reason: Adult Acute Hypoglycemia Prot Insulin Aspart (Insulin Aspart 100 Unit/1 Ml) 0 unit SUBCUT WM&BEDTIME [facility]; Protocol Last Admin: 03/26/20 17:32 Dose: 6 unit Documented by: Lisinopril (Lisinopril 20 Mg Tablet) 60 mg PO DAILY@05 [facility] Last Admin: 03/26/20 05:49 Dose: 60 mg Documented by: Nitroglycerin (Nitroglycerin 0.4 Mg Sublingual Tablet) 0.4 mg SUBLINGUAL Q5M PRN PRN Reason: CHEST PAIN Stop: 03/27/20 06:44 Ondansetron HCl (Ondansetron 2 Mg/Ml Sdv 2 Ml) 4 mg IVP Q2M PRN PRN Reason: NAUSEA Vitals/I&O/Wt Last Vital Signs Temp 99.1 F 03/26/20 19:21 Pulse 92 03/26/20 19:21 Resp 24 H 03/26/20 19:21 BP 152/82 03/26/20 19:21 Pulse Ox 93 03/26/20 19:21 03/26/20 03/26/20 03/26/20 06:59 14:59 22:59 Intake Total 240 / 240 Balance 240 / 240 Weight last 48 hrs Weight 272 lb 1.6 oz Weight 180 lb Physical Exam Narrative: EXAM NARRATIVE: GENERAL: The patient is alert and oriented times three. Not in any acute distress. HEENT: No significant pallor, icterus or lymphadenopathy. The pupils are reactant to light. Oral cavity: There are no mucous membrane lesions. NECK: Trachea appears to be central. No masses noted. No JVD or thyromegaly appreciated. No carotid bruit. RESPIRATORY: The breath sounds are heard bilaterally with scattered expiratory wheezing and some coarse crackles. BREASTS: Deferred. HEART: The PMI is in the 5th left intercostals space just inside the midcl avicular line. No palpable precordial events. S1 and S2 are normal. No S3 or S4 heard. No pericardial rub or any click heard. ABDOMEN: No vessel pulsations or distention. No tenderness. No organomegaly appreciated. No abdominal bruit. Bowel sounds are normally heard. : Deferred. RECTAL: Deferred. LYMPHATIC: No lymphadenopathy noted in the neck or groin. EXTREMITIES: No edema or cyanosis. No clubbing. The pulses are symmetrical bilaterally. The radial, femoral, dorsalis pedis and the posterior tibial pulses are palpated and found to be in good volume and amplitude. MUSCULOSKELETAL: No acute joint deformities or swelling SKIN: There are no significant scars or skin rash noted. NEUROPSYCHIATRIC: The patient is alert and oriented x3. Appears to be in a good mood. The higher functions are grossly within normal limits. No tremors or rigidity noted. Data : 03/26/20 04:09 03/26/20 04:09 A&P Assessment and plan (1) Elevated troponin level: The etiology of the elevated troponin T is not clear at this time. Possibility of some form of cardiac arrhythmia causing this is a consideration. For further evaluation, an event monitor would be appropriate. Status: Acute (2) Syncope: Exact etiology of the syncope is not known at this point. It could be part of the seizure disorder. A vasovagal reaction or cardiac arrhythmia causing this also are considerations. This may need to be further evaluated. Status: Acute Qualifiers: Syncope type: unspecified Qualified Code(s): R55 - Syncope and collapse (3) Generalized seizure: The etiology of the seizure is not known at this point. Episode of arm locking up followed by the seizure activity may suggest a primary PHARMACY OPERATIONS MANAGER etiology. Patient apparently was found to be hyperglycemic in the emergency room. Patient is to be closely monitored on telemetry. Status: Acute (4) Hypertension: Blood pressure is slowly getting under control. Status: Acute Qualifiers: Hypertension type: essential hypertension Qualified Code(s): I10 - Essential (primary) hypertension (5) Diabetes mellitus: The blood sugar is elevated. This needs to be closely monitored. 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 Qualified Code(s): E11.65 - Type 2 diabetes mellitus with hyperglycemia Attestations Medical Necessity Statement*: Patient requires continued hospital stay for close monitoring and further management Coding Level of Care Code Acute Head Of Conservation for [facility] Diagnoses Elevated troponin level R77.8 Syncope R55 Syncope type: unspecified Generalized seizure R56.9 Hypertension I10 Hypertension type: essential hypertension Diabetes mellitus E11.65 Diabetes mellitus complication status: with hyperglycemia 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
[2020-03-26 21:01] LABS: Glucose Point of Care 233 mg/dL (70-110)
[2020-03-26] MEDS: atorvastatin 40 mg Tablet PO (21:07)
[2020-03-27] VITALS: BP 151/87; PULSE 80; RESP 22; TEMP 36.5; O2SAT 94
[2020-03-27 04:00] VITALS: BP 134/69; PULSE 77; RESP 20; TEMP 36.5; O2SAT 94
[2020-03-27 05:25] VITALS: PULSE 68
--- NOTE | 2020-03-27 05:27 | PC.NURSE ---
SHIFT SUMMARY Has rested well tonight without c/o. No sz activity noted.
[2020-03-27] MEDS: enoxaparin 80 mg/0.8 mL Syringe SUBCUT (05:48)
[2020-03-27] MEDS: lisinopril 20 mg Tablet 60 MG PO (05:49)
[2020-03-27 06:56] LABS: Glucose Point of Care 217 mg/dL (70-110)
[2020-03-27 07:33] VITALS: BP 159/81; PULSE 81; RESP 18; TEMP 36.8; O2SAT 93
--- NOTE | 2020-03-27 10:36 | P.DS_ITS ---
Discharge Providers Date of Admission: 03/25/20 13:55 Date of Discharge: March 27, 2020 Attending Provider at Admission: Geoffrey Gupta Attending Provider at Discharge: Nilo Smith MD Primary Care Provider: Nir Moralez DO Diagnoses at Discharge Discharge Diagnosis (1) Syncope: Status: Acute Qualifiers: Syncope type: unspecified Qualified Code(s): R55 - Syncope and collapse (2) Hypertension: Status: Acute Qualifiers: Hypertension type: essential hypertension Qualified Code(s): I10 - Essential (primary) hypertension (3) Diabetes mellitus: Status: Acute Qualifiers: Diabetes mellitus complication status: with hyperglycemia 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 Reason for Visit Reason for Visit: SHAKING, SEIZURE Hospital Course Hospital Course Patient presented with syncopal episode. He had episode of right arm stiffness right before he syncopized. Patient reports that he could not move his arm when it got locked. Initially seizure disorder was suspected therefore outpatient EEG will be requested with results sent to PCP. Should findings be concerning outpatient follow-up with neurology will need to be considered. Clinically this does not appear to be a seizure episode but cannot be completely ruled out. Patient had elevated troponin and was further evaluated with echocardiogram and stress test without significant findings. Discussed with Dr. Harmon who recommends to discharge patient on event monitor for 30 days with outpatient follow-up. Patient this morning denies any shortness of breath or chest pain. He shows no evidence of any focal neurological findings. He ambulates without difficulty and feels strong enough to be discharged home. He showed evidence of peripheral vascular disease on carotid artery ultrasound. He will be started on aspirin and statin. Patient is on Mobic therefore will add omeprazole for GI protection. Physical Exam Const: COMMON NORMALS: no acute distress and patient oriented x3 Resp: COMMON NORMALS: normal respiratory effort and clear to auscultation bilaterally AUSCULTATION: clear to auscultation bilaterally Cardio: COMMON NORMALS: regular rate, regular rhythm and S2 normal heart sound present RATE: regular rate RHYTHM: regular rhythm HEART SOUNDS: S2 normal heart sound present OTHER: No lower extremity edema GI: COMMON NORMALS: Normal to inspection, nondistended, normoactive bowel sounds present, Soft to palpation and non-tender PALPATION: Yes Soft to palpation Neuro: COMMON NORMALS: patient oriented x3 and no focal motor deficits Discharge Data Data Completed and Pending: Completed Studies During Hospitalization Category Date Time Status CT head wo con* 7 0450 Stat Cat Scan 03/25/20 10:20 Completed Sestamibi Stress Test Request Routi ne Exams 03/26/20 12:00 Completed NM jamar perf SPECT r/s* [id number] Routin e Nuc Med 03/26/20 07:00 Completed CV carotid duplex BI* [id number] Routine Ultrasound 03/25/20 17:52 Completed CV echo complete* [id number] Routine Ultrasound 03/25/20 17:52 Completed Pending at discharge Category Date Time Status Sestamibi Stress Test Request Routi ne Exams 03/26/20 06:00 Ordered Labs from last 24 hours 03/27/20 03/26/20 03/26/20 06:49 20:58 16:53 POC Glucose 217 233 195 03/26/20 11:01 POC Glucose 130 Vitals: Last Vital Signs Temp 98.2 F 03/27/20 07:33 Pulse 81 03/27/20 07:33 Resp 18 03/27/20 07:33 BP 159/81 03/27/20 07:33 Pulse Ox 93 03/27/20 07:33 Discharge Plan Discharge Patient Disposition: Home Condition: Stable Prescriptions: New atorvastatin 40 mg Tablet 40 mg PO BEDTIME Qty: 30 RF: 0 aspirin [Enteric Coated Aspirin] 81 mg tablet,delayed release (DR/EC) 81 mg PO DAILY Qty: 30 RF: 0 omeprazole 20 mg capsule,delayed release(DR/EC) 20 mg PO DAILY Qty: 60 RF: 0 Continued multivitamin Tablet 1 tab PO DAILY RF: 0 Lantus U-100 Insulin 100 unit/mL Solution See Rx Instructions .ROUTE .COMPLEX RF: 0 metoprolol succinate 200 mg Tablet Extended Release 24 Hr 100 mg PO DAILY@05 RF: 0 glipizide 10 mg Tablet 10 mg PO BID@ RF: 0 Mobic 7.5 mg Tablet See Rx Instructions .ROUTE .COMPLEX RF: 0 metformin 1,000 mg Tablet 1,000 mg PO BID@ RF: 0 lisinopril 40 mg Tablet 60 mg PO DAILY@05 RF: 0 Flonase 50 mcg/actuation [place],Suspension 1 - 2 spray INTRANASAL DAILY PRN (Reason: Allergy Symptoms) RF: 0 Vitamin D3 50 mcg (2,000 unit) Tablet 50 mcg PO DAILY@05 RF: 0 Discharge Orders: Discharge Order (Routine); Ordered 03/27/20 Ordered By: Nilo Lyle Ambulatory Orders: EEG electroencephalogram (Routine) Timeframe: 1 Week Facility: [facility] - Location: Neurology Ordered By: Nilo HOPPER cardiac event monitor (Routine) Timeframe: 1 Day Facility: [facility] - Location: Cardiac Diagnostic Laboratory Ordered By: Nilo Smith Referrals: Mallorie Harmon MD [Physician] - 1 month Nir Moralez DO [Primary Care Provider] - 4-7 days Discharge Diet: Cardiac and Diabetic Discharge Activity: Increase activity as tolerated Patient Instructions: Ischemic Stroke (DC), Self Care Measures After a Stroke (DC) Activity Restrictions/Additional Instructions: Please call your doctor or present to emergency department if your condition worsens or you develop diarrhea, lightheadedness, fatigue or see blood in your stool or black stool. Please keep blood sugar, blood pressure and heart rate log 3 times daily to present to primary care physician next visit for medication adjustment. Please follow-up with Dr. Harmon in 4 weeks to read the report of event monitor Discharge Attestations Time Spent in Discharge Care*: greater than 30 min Quality Metrics Clinical Quality Measures During this hospital stay, did patient experience: AMI Clinical Trial Participant: No Contraindication to aspirin (AMI): Aspirin given Contraindication to statin: Statin prescribed Coding Level of Care Code Acute Bond Trader for [facility] Fwd Exam Detailed Diagnoses Syncope R55 Syncope type: unspecified Hypertension I10 Hypertension type: essential hypertension Diabetes mellitus E11.65 Diabetes mellitus complication status: with hyperglycemia 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
[2020-03-27 10:44] LABS: Glucose Point of Care 291 mg/dL (70-110)
[2020-03-27 11:14] VITALS: BP 153/79; PULSE 88; RESP 18; TEMP 36.8; O2SAT 92
[2020-03-27 14:54] VITALS: BP 153/79; PULSE 88; RESP 18; TEMP 36.8; O2SAT 92
--- NOTE | 2020-03-27 14:56 | PC.NURSE ---
pt iv taken out and intact. pt discharge instructions explained and questions answered. pt taken to surgical services entrance via wheelchair.
== END 2020-03-27 14:57 | disposition home or self-care (01) ==
LOC: ER 14:06 → MEDSURG 15:01
PROVIDERS: Admitting Provider Internal Medicine; Emergency Provider Family Medicine; PCP Emergency Medicine Emergency Medical Services; Visit Provider Internal Medicine
DX: I21.4 Non-ST elevation (NSTEMI) myocardial infarction (principal); I65.23 Occlusion and stenosis of bilateral carotid arteries; R56.9 Unspecified convulsions; I10 Essential (primary) hypertension; E11.65 Type 2 diabetes mellitus with hyperglycemia; G47.30 Sleep apnea, unspecified; Z79.4 Long term (current) use of insulin; Z87.891 Personal history of nicotine dependence; G47.33 Obstructive sleep apnea (adult) (pediatric); G40.909 Epilepsy, unspecified, not intractable, without status epilepticus; R79.89 Other specified abnormal findings of blood chemistry
CPT/HCPCS: 12345; 36415; 36416; 70450; 78452; 80053; 81001; 82550; 82962; 83735; 84443; 84484; 85025; 93005; 93017; 93271; 93306; 93880; 94660; 96372; 99284; 99285; A9500; G0378; J1650; J1815; J2785

== ENCOUNTER → 2020-04-01 12:51 | Outpatient (BNVA) | payer OTHER, MEDICARE, SELFPAY | PROVIDERS: PCP Emergency Medicine Emergency Medical Services; Visit Provider Specialist | DX: R55 Syncope and collapse (principal); Z87.891 Personal history of nicotine dependence | CPT/HCPCS: 95816 ==

== ENCOUNTER → 2020-07-23 11:49 | Outpatient (BNVA) | payer OTHER, MEDICARE, SELFPAY | PROVIDERS: PCP Emergency Medicine Emergency Medical Services; Visit Provider Internal Medicine Cardiovascular Disease | DX: R06.02 Shortness of breath (principal); I50.33 Acute on chronic diastolic (congestive) heart failure; M79.89 Other specified soft tissue disorders; I11.0 Hypertensive heart disease with heart failure; I65.23 Occlusion and stenosis of bilateral carotid arteries; G47.33 Obstructive sleep apnea (adult) (pediatric); E11.65 Type 2 diabetes mellitus with hyperglycemia; Z87.891 Personal history of nicotine dependence | CPT/HCPCS: 80048; 83880 ==

== ENCOUNTER 2020-09-18 14:50 | Outpatient (CLI) | payer OTHER, MEDICARE, SELFPAY ==
--- NOTE | 2020-09-18 15:15 | MR_ITS ---
WS: [id number] MRI HEAD WITH CONTRAST WITH ATTENTION TO THE INTERNAL AUDITORY CANALS TECHNIQUE: Sagittal T1, T2 axial, T2 axial flair, axial susceptibility weighted imaging, axial diffus ion weighted images, and coronal T2 images were obtained. Pre and post T1 axial and post T1 coronal i mages. ADC and FSPGR images. Post gadolinium images with attention to the internal auditory canals. A xial fiesta imaging. CLINICAL INFORMATION: DIZZINESS AND GIDDINESS COMPARISON: CT March 25, 2020 and MRI 2015 FINDINGS: Tiny focus of restricted diffusion within the splenium of the corpus callosum consistent with a tiny acute focus of ischemia. Small amount of T2 hyperintensity. No other foci of restricted diffusion. Mi ld small vessel changes. Moderate parenchymal volume loss. Normal posterior fossa. Normal vascular fl ow voids at the skull base. No extra-axial fluid collections. No evidence of mass or mass effect. Par anasal sinuses are well aerated. Mild mucosal thickening in the mastoid air cells. No hemosiderin on susceptibly weighted images. Proximal 7th and 8th cranial nerves are normal. Normal trigeminal nerve root entry zones. No evidence of enhancing IAC or CP angle mass. Normal optic chias m and pituitary infundibulum. No abnormal intracranial enhancement. Normal optic chiasm and pituitary infundibulum. 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 MR/MR iac's wo/w con* [id number] IMPRESSION: 1. Tiny focus of restricted diffusion within the splenium corpus callosum con sistent with a tiny acute lacunar infarct. 2. Proximal 7th and 8th cranial nerves are normal in appearance. Normal trigem inal nerve root entry zones. 3. No evidence of enhancing IAC or CP angle mass. 4. Mild small vessel changes with moderate parenchymal volume loss. Parenchyma l volume loss is progressed since 2016. 5. No hemosiderin on susceptibly weighted images. 6. No abnormal intracranial enhancement.
[2020-09-18] MEDS: gadobenate dimeglumine 20 mL vial IV (15:56)
== END 2020-09-18 14:51 | disposition home or self-care (01) ==
LOC: RADSHAW 14:51
PROVIDERS: PCP Emergency Medicine Emergency Medical Services; Visit Provider Specialist
DX: R42 Dizziness and giddiness (principal)
CPT/HCPCS: 70553; A9577

== ENCOUNTER → 2020-10-31 10:15 | Outpatient (BNVA) | payer OTHER, MEDICARE, SELFPAY | PROVIDERS: PCP Emergency Medicine Emergency Medical Services; Visit Provider Internal Medicine Critical Care Medicine | DX: Z20.822 Contact with and (suspected) exposure to COVID-19 (principal) | CPT/HCPCS: 87635 ==

== ENCOUNTER 2020-11-04 10:19 | Outpatient (CLI) | payer OTHER, MEDICARE, SELFPAY ==
--- NOTE | 2020-11-04 11:02 | PFTS_ITS ---
Date of Study:11/04/20 Date of Dictation:11/04/20 MECHANICS: Post bronchodilator Forced vital capacity (FVC) is reduced. Post bronchodilator Forced expiratory volume in one second (FEV1) is mildly reduced 80% FEV1/FVC is normal. FLOW VOLUME LOOP: normal . LUNG VOLUMES: Total lung capacity (TLC) is mildly reduced 71% . Residual volume (RV) is normal. DIFFUSING CAPACITY FOR CARBON MONOXIDE: mildly reduced 63% . INTERPRETATION: The pulmonary function tests are consistent with mild restrictive lung disease. lung volumes and gas exchange (DLCO) are mildly reduced. Clinical correlation recommended. MTDD
== END 2020-11-04 10:20 | disposition home or self-care (01) ==
LOC: RT 10:23
PROVIDERS: PCP Emergency Medicine Emergency Medical Services; Visit Provider Internal Medicine Critical Care Medicine
DX: R06.02 Shortness of breath (principal)
CPT/HCPCS: 94060; 94726; 94729; J7611

== ENCOUNTER 2021-04-30 06:00 | Outpatient (RCR) | payer OTHER, SELFPAY | END 2021-05-18 23:59 | disposition home or self-care (01) | LOC: SPT 06:00 | PROVIDERS: PCP Family Medicine; Referring Provider Family Medicine; Visit Provider Family Medicine | DX: R42 Dizziness and giddiness (principal) | CPT/HCPCS: 97110; 97112; 97162 ==

== ENCOUNTER 2021-05-19 06:00 | Outpatient (RCR) | payer OTHER, SELFPAY | END 2021-06-15 23:59 | disposition home or self-care (01) | LOC: SPT 06:00 | PROVIDERS: PCP Family Medicine; Referring Provider Family Medicine; Visit Provider Family Medicine | DX: R42 Dizziness and giddiness (principal) | CPT/HCPCS: 97110; 97112 ==

== ENCOUNTER 2021-06-16 06:00 | Outpatient (RCR) | payer OTHER, SELFPAY | END 2021-06-25 23:59 | disposition home or self-care (01) | LOC: SPT 06:00 | PROVIDERS: PCP Family Medicine; Referring Provider Family Medicine; Visit Provider Family Medicine | DX: R42 Dizziness and giddiness (principal) | CPT/HCPCS: 97110; 97112 ==

== ENCOUNTER → 2021-06-22 08:14 | Outpatient (BNVA) | payer OTHER, SELFPAY | PROVIDERS: PCP Family Medicine; Visit Provider Internal Medicine Critical Care Medicine | DX: R06.02 Shortness of breath (principal); Z87.891 Personal history of nicotine dependence; G51.0 Bell's palsy; E11.8 Type 2 diabetes mellitus with unspecified complications; I10 Essential (primary) hypertension; G47.33 Obstructive sleep apnea (adult) (pediatric) | CPT/HCPCS: 99214 ==

== ENCOUNTER → 2021-10-13 09:22 | Outpatient (BNVA) | payer OTHER, SELFPAY | PROVIDERS: PCP Family Medicine; Visit Provider Internal Medicine Cardiovascular Disease | DX: R06.02 Shortness of breath (principal); E11.65 Type 2 diabetes mellitus with hyperglycemia; G47.33 Obstructive sleep apnea (adult) (pediatric); I65.23 Occlusion and stenosis of bilateral carotid arteries; I12.9 Hypertensive chronic kidney disease with stage 1 through stage 4 chronic kidney disease, or unspecified chronic kidney disease; E11.22 Type 2 diabetes mellitus with diabetic chronic kidney disease; N18.9 Chronic kidney disease, unspecified; Z87.891 Personal history of nicotine dependence; Z79.84 Long term (current) use of oral hypoglycemic drugs; Z79.01 Long term (current) use of anticoagulants | CPT/HCPCS: 80048; 83880; 85025; 85610; 86850; 86900; 99214; 99215 ==

== ENCOUNTER 2021-10-28 07:58 | Outpatient (CLI) | payer OTHER, SELFPAY ==
[2021-10-28 08:40] LABS: Basophils # 0.1 10^3/uL (0.0-0.1); Eosinophils # 0.2 10^3/uL (0.0-0.8); Eosinophils % 2.6 %; Hematocrit 29.4 % (42.0-52.0); Hemoglobin 9.7 g/dL (11.7-16.6); Lymphocytes # 1.7 10^3/uL (0.8-4.8); Lymphocytes % 23.8 %; Mean Corpuscular Hemoglobin 30.2 pg (28.0-34.0); Mean Corpuscular Volume 91.6 fl (80-94); Mean Platelet Volume 10.5 fL (7.4-10.4); Monocytes # 0.6 10^3/uL (0.2-0.9); Monocytes % 8.9 %; Neutrophils # 4.56 10^3/uL (1.8-7.7); Nucleated Red Blood Cells % 0 %; Platelet Count 174 10^3/cmm (130-400); Red Blood Count 3.21 10^6/uL (4.1-5.3); White Blood Count 7.2 10^3/uL (4.0-10.0)
[2021-10-28 08:49] LABS: INR 1.08 (0.83-1.21); Prothrombin Time (Patient) 14.4 Seconds (12.0-15.1)
[2021-10-28 09:02] LABS: Blood Urea Nitrogen 53 mg/dL (8-23); Calcium 9.3 mg/dL (8.5-10.5); Carbon Dioxide 20 mmol/L (22-29); Chloride 103 mmol/L (98-107); Glucose 197 mg/dL (65-115); Osmolality Calculated 306 mOsm/kg (285-295); Sodium 138 mmol/L (136-145)
== END 2021-10-28 07:59 | disposition home or self-care (01) ==
LOC: LAB 08:01
PROVIDERS: PCP Family Medicine; Visit Provider Internal Medicine Cardiovascular Disease
DX: N18.9 Chronic kidney disease, unspecified (principal); R06.02 Shortness of breath; I25.10 Atherosclerotic heart disease of native coronary artery without angina pectoris; M79.89 Other specified soft tissue disorders
CPT/HCPCS: 80048; 85025; 85610; 86850; 86900

== ENCOUNTER 2021-11-02 05:41 | Outpatient (CLI) | payer OTHER, SELFPAY ==
[2021-11-02] VITALS (43 sets, daily range): BP systolic 98–164; BP diastolic 52–87; PULSE 68–85; RESP 15–28; TEMP 36.7–37.1; O2SAT 92–97; BMI 37.0
--- NOTE | 2021-11-02 06:00 | XACV_ITS ---
Exam Room: 2 Ht: 178 cm Wt: 117 kg BSA: 2.45 m2 Gender: Male : 1950 Exam Priority: Routine Procedure(s): Procedure Description: Diagnostic procedure Procedure Description: Left Heart Catheterization Procedure Description: Right Heart Catheterization Procedure Description: O2 saturation Procedure Description: Coronary Angiography Procedure Description: Pressure Wire Faustino NAIK; Diagnostic Cath Status: Elective Diagnostic Findings * The left main is a medium caliber vessel which has a distal concentric narrowing of around 20%. * The left anterior descending artery is a medium caliber vessel which was found to have diffuse intimal irregularities with no significant stenotic lesions. It gives of a high diagonal branch which appears to bifurcate proximally. These diagonal branches also were found to have diffuse irregular narrowing with no significant stenotic lesions. * The left circumflex artery is a medium caliber vessel which was found to have around 50% narrowing in the midsegment. The artery gives off a high obtuse marginal branch which is found to have mild diffuse irregularities proximally. * The right coronary artery is a medium caliber dominant vessel which was found to have a proximal around 50-60 % narrowing. The PDA branch was found to have ostial around 70% stenosis. That this is relatively small caliber vessel. The PLV branches found to have no significant stenotic lesions. Interventional Findings * Interventional findings: We engaged RCA with JR4 guide catheter. IV heparin was administered to maintain ACT above 250 yes. After normalization, IFR wire was advanced into the distal vessel. IFR value of 0.94 was obtained that was nonischemic. At this time IFR wire was pulled back and final angiogram was performed that showed no or complications. Patient left the Buggy Loader in a stable condition. Conclusions 1. 71-year-old white male with a history of hypertension, dyslipidemia and COPD presented with a progressive shortness of breath. The degree of shortness of breath was found to be out of proportion to the COPD. To rule out any cardiac cause of shortness of breath, a cardiac catheterization was requested. Patient had a Myocardial perfusion imaging which was unremarkable. He underwent left and right heart catheterization with a left and right coronary angiogram today. The findings are as follows. 2. 20% distal left main disease. 50 to 60% stenosis in the proximal right coronary artery. 70% lesion in the small PDA branch at the ostium. Mild diffuse disease in the other vessels. LVEDP of 20 mmHg. Right heart catheterization revealed moderate pulmonary hypertension with a mean PA pressure of 34 mmHg. Pulmonary capillary wedge pressure of 21 mmHg. 3. IFR of RCA is nonischemic. Medical therapy. Recommendations * Aggressive risk factor modification. * Outpatient cardiology follow-up in 4 weeks. Interventional RX Recommendation: medical therapy and/or counseling Diagnostic RX Recommendation: medical therapy and/or counseling Anticoagulation: Heparin LV EDP: 20 mmHg Left Ventriculography Findings: * LV gram was not performed because of the abnormal kidney function. The LVEDP was 20 mmHg. * Right heart catheterization was done. The mean right atrial pressure was 90 mmHg. RV pressure was 45/9. The pulmonary artery pressure was 47/24, with a mean of 34. The pulmonary capillary wedge pressure was 21 mmHg. Pressures Phase:Rest AO : 80 / 62 ( 71 ) @ 9:33:00 AM 85 / 65 ( 76 ) @ 9:38:00 AM 96 / 62 ( 78 ) @ 9:43:00 AM 128 / 58 ( 84 ) @ 9:50:00 AM 133 / 55 ( 79 ) @ 9:50:00 AM LV : 137 / -2 / 20 @ 9:50:00 AM 138 / 0 / 25 @ 9:50:00 AM RV : 45 / 9 / 17 @ 9:19:00 AM PA : 47 / 24 ( 34 ) @ 9:17:00 AM RA : a wave = 29 v wave = 24 mean = 20 @ 9:21:00 AM a wave = 22 v wave = 21 mean = 19 @ 9:22:00 AM PCW : a wave = 21 v wave = 23 mean = 21 @ 9:17:00 AM O2 Content Phase:Rest PA : O2 Content O2: 69.9 @ 9:38:00 AM Saturations Phase:Rest AO : 92 @ 9:50:00 AM RA : 71 @ 9:43:00 AM RV : 72 @ 9:33:00 AM PA : 70 @ 9:38:00 AM Cardiac Output Phase:Rest Vasu : 9 @ 9:13:43 AM Vasu Cardiac Index: 4 @ 9:13:43 AM Flow Phase:Rest Qp : 9 @ 9:13:43 AM Qs : 9 @ 9:13:43 AM Valves Phase:DefaultPhase AV : 12.0 @ 9:13:43 AM 12.0 @ 9:13:43 AM AV Mean Gradient: 16.0 @ 9:13:43 AM 16.0 @ 9:13:43 AM AV Flow: 403 @ 9:13:43 AM AV Area: 2.3 @ 9:13:43 AM AV Area Index: 0.97 @ 9:13:43 AM Clinical Evaluation EBL: 5mL-10mL Procedural Details Procedure Consent Obtained. Admit Source: Out Patient. Pre-Procedure Time Out. Identified patient by full name and date of as verbalized by the patient/guarantor. Does the consent match the physician's order: Yes. Accurate & Complete Informed Consent: Yes. Inpatient/Outpatient History & Physical on Chart: Yes. If H&P is completed, is and addenduem needed: N/A; If yes, is the addendum complete: N/A. Visualize and Verify Site with Patient/Guarantor: N/A. Relevant Radiology Images available: N/A. Pre-op teaching completed and patient verbalized understanding. The risks, benefits, and alternatives of sedation and/or procedure were discussed by physician. The patient agrees to continue. Procedure started. [facility] Clinical Fraility Score: 3: Managing Well. Buggy Loader Indications: Cardiomyopathy. Chest Pain Symptom Assessment: Asymptomatic. Correct patient, site and procedure confirmed by cath team. Current diagnosis: Cardiomyopathy. PERRLA. Strong, equal hand cabin outfitter bilaterally. Lungs clear x 5 lobes. IV Site on Arrival: 18 gauge in the left anticubital. IV Fluids: 0.9% NaCl at KVO. 0 mL infused prior to cardiac cath lab manager. Pre Procedural Pulses: bilateral dorsalis pedis was Doppled. Pre Procedural Pulses: bilateral posterior tibial was Doppled. Pre Procedural Pulses: right radial was 3+. right groin was prepped with chloroprep then draped in the usual sterile fashion. right radial was prepped with chloroprep then draped in the usual sterile fashion. Physician notified. Baseline sample Acquired. HR: 62 BPM. Physician arrived. Physician scrubbed in. Immediate Pre-Procedure Time Out. Correct Patient: Yes; Correct Procedure: Yes; Correct Site: Yes; Correct Patient Position: Yes; Correct Supplies: Yes; Dried Flammable Prep: Yes; Blood Products Available: N/A. Lidocaine 1% infiltrated to the right brachial. Wykoff-Pierre MON catheter inserted. Hand injection perfomed at the axilla. Wykoff wire inserted. Wykoff wire removed. Wykoff wire inserted. Wykoff-Pierre out. Pressure measurements obtained. Lidocaine 1% infiltrated to the right radial. Arterial access obtained. A 5 kiswahili Alex catheter in over wire. IVF increased to 125ml/hr per Dr Harmon verbal order. Oxygen started at 2liters/min via nasal canula. Multiple views taken of left coronary artery. Catheter redirected to the RCA. Multiple views taken of right coronary artery. Dr Momin notified to review films. Glidewire inserted. Glidewire removed. Catheter out. A 5 kiswahili Angled Pig catheter in over wire. EDP Sample taken: LV 137/-3,20; HR: 59 BPM; SpO2: 97%. Pullback taken: LV 138/-1,25; AO 128/58(84); Mean: 16mmHg, Peak to Peak: 12mmHg, SEP: 23sec/min; HR: 72 BPM; SpO2: 96%. Dr. Momin scrubbed in to perform IFR. Patient's family updated. Catheter removed over the standard wire. 6 kiswahili JR 4 guide catheter was inserted over the wire. IFR guidewire was advanced through the guide catheter to lesion in the prox RCA. Fractional flow reserve measurements obtained. IFR wire removed. Guide catheter out. A TR Band was successful obtaining hemostatsis at the Right Radial artery insertion site. A Manual Compression was successful obtaining hemostatsis at the Right Brachial Vein insertion site. Post Procedure: Pulses reassessed and unchanged. PERRLA. Strong, equal hand cabin outfitter bilaterally. No VTE prophylaxis required. Medication's Wasted: Lidocaine 1% = 2 mL. Medication's Wasted: Nitro = 49.8 mg. Medication's Wasted: Heparin = 2000 u. Total IV fluids: 120 mL. Post-op diagnosis: Non Obstructive CAD. Complications: none. Estimated blood loss: 5mL-10mL. Responsiveness - Normal response to verbal stimuli; alert and oriented, PERRLA. Airway - Unaffected, no intervention required; spontaneous ventilation. Circulation: W/N/L, pulses unchanged. Nausea/Vomiting: No. Procedure completed. Patient transferred by wheelchair to 1st floor. Vital chart was stopped. Access Site Site: Right Brachial Vein Sheath Size: 6 Fr Hemostasis Method: Manual Compression Hemostasis Success: Successful Site: Right Radial artery Sheath Size: 6 Fr Hemostasis Method: TR Band Hemostasis Success: Successful Procedure Medications Start: 8:03 AM Stop: 8:03 AM Medication: Versed Amount: 1 mg Route: I.V. Start: 8:03 AM Stop: 8:03 AM Medication: Fentanyl Amount: 25 mcg Route: I.V. Start: 8:03 AM Stop: 8:03 AM Medication: 0.9% Saline Amount: 75 ml/hr Route: I.V. drip Start: 8:23 AM Stop: 8:23 AM Medication: Versed Amount: 1 mg Route: I.V. Start: 8:23 AM Stop: 8:23 AM Medication: Fentanyl Amount: 50 mcg Route: I.V. Start: 8:27 AM Stop: 8:27 AM Medication: Verapamil Amount: 5 mg Route: I.A. Start: 8:30 AM Stop: 8:30 AM Medication: Heparin Amount: 5000 units Route: I.V. Start: 9:01 AM Stop: 9:01 AM Medication: Heparin Amount: 4000 units Route: I.V. I, the attending physician, have reviewed and verified all procedure medications. Yes, all medications given per verbal order History/Risk Factors Hypertension: Yes Dyslipidemia: No Peripheral Arterial Disease (PAD): No Myocardial Infarction (LA): Yes Obesity: Yes Renal Disease: Yes Tobacco Use: Former Prior Interventions PCI: No CABG: No Valve Surgery: No Report Signatures Interventional Workflow Finalized by Jean Momin MD on 11/11/2021 01:01 PM Diagnostic Workflow Finalized by Dr Mallorie Harmon MD [facility] on 11/02/2021 08:46 PM
--- NOTE | 2021-11-02 07:50 | W.PM.OPSUD ---
Surgery/Procedure H&P Update DATE OF PROCEDURE: November 02, 2021 DATE H&P PERFORMED: 10/13/21 H&P UPDATE INFORMATION: I have reviewed H&P completed within last 30 days, I have examined patient prior to procedure and No changes to prior documentation PREOP DIAGNOSIS: SOB/ diastolic heart failure/ suspected CAD PRIMARY INDICATION FOR PROCEDURE: SOB PLANNED PROCEDURE: Operation Date: 11/02/21 07:00 Proposed Procedures p Cardiac Catheterization(Left) - Mallorie Harmon MD PHYSICAL EXAM: alert, oriented x 3, clear to auscultation bilaterally and regular rate & rhythm OTHER PERTINENT EXAM FINDINGS: Lungs mostly clear.. diminished intensity of breath sounds in the bases AIRWAY EVAL/ANESTHESIA PLAN: normal airway, see other exam findings, ASA III, Monitored Anesthesia, Local Anesthesia, Risks, benefits & alternatives of sedation and/or procedure discussed and Patient agrees to continue as planned
[2021-11-02 08:39] LABS: ABG PCO2 38.2 mmHg (35-45); ABG PH Result 7.34 (7.35-7.45); Arterial Blood Gas Hematocrit 16.7 % (42-52); Base Excess ABG -4.6 mmol/L (-2.0-2.0); Blood Gas Allen Test Pos; Blood Gas Sample Type Arterial; HCO3 ABG 20.7 mmol/L (22-26)
[2021-11-02 08:39] LABS: ABG PCO2 38.8 mmHg (35-45); ABG PH Result 7.34 (7.35-7.45); Base Excess ABG -4.6 mmol/L (-2.0-2.0); Blood Gas Allen Test Pos; Blood Gas Sample Type Arterial; HCO3 ABG 20.8 mmol/L (22-26); PO2 ABG 37.6 mmHg (80.0-100.0)
[2021-11-02 08:42] LABS: ABG PCO2 39.9 mmHg (35-45); ABG PH Result 7.34 (7.35-7.45); Arterial Blood Gas Hematocrit 26.4 % (42-52); Base Excess ABG -4.2 mmol/L (-2.0-2.0); Blood Gas Allen Test Pos; Blood Gas Sample Type Arterial; HCO3 ABG 21.3 mmol/L (22-26); PO2 ABG 37.7 mmHg (80.0-100.0)
[2021-11-02 08:42] LABS: ABG PCO2 37.4 mmHg (35-45); ABG PH Result 7.35 (7.35-7.45); Blood Gas Allen Test Pos; Blood Gas Sample Type Arterial; HCO3 ABG 20.6 mmol/L (22-26); PO2 ABG 36.7 mmHg (80.0-100.0)
[2021-11-02 11:36] LABS: Glucose Point of Care 193 mg/dL (70-110)
[2021-11-02] MEDS: sodium chloride 0.9% 1,000 ML 100 ML IV ×2 (14:30→23:39)
--- NOTE | 2021-11-02 15:26 | PC.NURSE ---
Spoke with provider about patient medications for blood pressure instructions received to hold off and see how blood pressure and pulse stabilized hold PO lasix until tomorrow
[2021-11-02] MEDS: hyDRALAzine 50 mg Tablet 100 MG PO ×2 (15:36→20:12)
[2021-11-02 16:35] LABS: Glucose Point of Care 187 mg/dL (70-110)
[2021-11-02] MEDS: carvedilol 12.5 mg Tablet PO (17:49)
[2021-11-02] MEDS: omega-3 fatty acids 1,000 mg Capsule 1000 MG PO (17:50)
--- NOTE | 2021-11-02 19:18 | PC.NURSE ---
Received bedside report from [facility]. Patient is s/p heart cath with right radial access. TR band remains in place at this time. Observed very small hematoma and bruising to right wrist. Dr Harmon is aware. Hematoma improving compared to earlier marking of site. Patient denies pain to site at this time. Will continue to monitor.
[2021-11-02 20:33] LABS: Glucose Point of Care 179 mg/dL (70-110)
--- NOTE | 2021-11-02 20:52 | PC.NURSE ---
TR band removed at this time. Previous hematoma resolving with light bruising observed at this time. No other s/s of bleeding noted. Instructed patient on site care and restrictions. Patient verbalized complete understanding. Will continue to monitor.
[2021-11-03] VITALS: BP 135/65; PULSE 70; RESP 17; TEMP 36.4; O2SAT 98
[2021-11-03 04:00] VITALS: BP 135/80; PULSE 70; RESP 17; TEMP 36.3; O2SAT 97
[2021-11-03] MEDS: lisinopril 20 mg Tablet 60 MG PO (05:19)
[2021-11-03] MEDS: cholecalciferol (vitamin D3) 1,000 unit Tablet 2000 UNIT PO (05:19)
[2021-11-03 05:37] VITALS: PULSE 69
[2021-11-03 06:52] LABS: Glucose Point of Care 173 mg/dL (70-110)
[2021-11-03 07:43] LABS: Blood Urea Nitrogen 34 mg/dL (8-23); Calcium 8.9 mg/dL (8.5-10.5); Carbon Dioxide 20 mmol/L (22-29); Chloride 106 mmol/L (98-107); Glucose 172 mg/dL (65-115); Osmolality Calculated 298 mOsm/kg (285-295); Sodium 138 mmol/L (136-145)
[2021-11-03 07:47] LABS: Anion Gap 16.2 (5-19); Potassium 4.2 mmol/L (3.5-5.1)
[2021-11-03 08:00] VITALS: BP 169/79; PULSE 72; RESP 17; O2SAT 96
[2021-11-03] MEDS: insulin glargine 100 units/1 mL 74 UNIT SUBCUT (09:54)
[2021-11-03 11:55] LABS: Glucose Point of Care 198 mg/dL (70-110)
[2021-11-03 12:00] VITALS: BP 115/63; PULSE 60; RESP 21; O2SAT 94
--- NOTE | 2021-11-03 12:45 | P.PN_ITS ---
Subjective Subjective: This patient had a cardiac catheterization yesterday. He is known to have chronic kidney disease. He was mainly kept overnight for IV hydration and close monitoring. The repeat BMP this morning revealed a creatinine level of 0.9, significant drop from the precath level. Patient is. Doing okay with no chest pain or shortness of breath. Medications: Medication Review Details: Current Medications Albuterol/Ipratropium (Ipratropium-Albuterol 4 Gm Mdi) 1 puff INHALATION Q4H PRN PRN Reason: Dyspnea Aspirin (Aspirin 81 Mg Ec Tablet) 81 mg PO DAILY [facility] Last Admin: 11/02/21 12:00 Dose: Not Given Documented by: Ezetimibe (Ezetimibe 10 Mg Tablet) 10 mg PO DAILY [facility] Fluticasone Propionate (Fluticasone Nasal [place] 16gm Btl) 1 - 2 spray INTRANASAL DAILY PRN PRN Reason: Allergy Symptoms Furosemide (Furosemide 40 Mg Tablet) 40 mg PO DAILY [facility] Last Admin: 11/02/21 12:00 Dose: Not Given Documented by: Hydralazine HCl (Hydralazine 50 Mg Tablet) 100 mg PO TID [facility] Last Admin: 11/02/21 20:12 Dose: 100 mg Documented by: Sodium Chloride (Sodium Chloride 0.9%) 1,000 mls @ 100 mls/hr IV .Q10H [facility] Last Infusion: 11/03/21 10:29 Dose: Infused Documented by: Insulin Glargine (Insulin Glargine 100 Units/1 Ml) 74 unit SUBCUT DAILY [facility] Last Admin: 11/03/21 09:54 Dose: 74 unit Documented by: Isosorbide Mononitrate (Isosorbide Mononitrate Er 30 Mg Tablet) 30 mg PO DAILY [facility] Lisinopril (Lisinopril 20 Mg Tablet) 60 mg PO DAILY@05 [facility] Last Admin: 11/03/21 05:19 Dose: 60 mg Documented by: Metolazone (Metolazone 5 Mg Tablet) 2.5 mg PO DAILY [facility] Metoprolol Tartrate (Metoprolol Tartrate 25 Mg Tablet) 25 mg PO BID@0900,2100 [facility] Multivitamins Therapeutic (Multivitamin Therapeutic Tablet) 1 tab PO DAILY [facility] Non-Formulary Medication (Empagliflozin [Jardiance]) 25 mg PO DAILY [facility] Last Admin: 11/03/21 10:27 Dose: Not Given Documented by: Non-Formulary Medication (Glipizide) 10 mg PO BID@, [facility] Last Admin: 11/03/21 05:03 Dose: Not Given Documented by: Non-Formulary Medication (Tiotropium-Olodaterol [Stiolto Respimat]) 2 puff INHALATION DAILY [facility] Last Admin: 11/03/21 10:28 Dose: Not Given Documented by: [id number] Ethyl Esters ([place]-3 Fatty Acids 1,000 Mg Capsule) 1,000 mg PO BID [facility] Last Admin: 11/02/21 17:50 Dose: 1,000 mg Documented by: Pantoprazole Sodium (Pantoprazole Dr 40 Mg Tablet) 40 mg PO DAILY [facility] Potassium Chloride (Potassium Chloride Er 20 Meq Tablet) 20 meq PO Sa [facility] Vitamin D (Cholecalciferol (Vitamin D3) 1,000 Unit Tablet) 2,000 unit PO DAILY@ [facility] Last Admin: 11/03/21 05:19 Dose: 2,000 unit Documented by: Vitals/I&O/Wt Last Vital Signs Temp 97.4 F L 11/03/21 04:00 Pulse 72 11/03/21 08:00 Resp 17 11/03/21 08:00 BP 169/79 11/03/21 08:00 Pulse Ox 96 11/03/21 08:00 11/02/21 11/03/21 11/03/21 22:59 06:59 14:59 Intake Total 480 / 1840 915 / 2755 1000 / 1000 Balance 480 / 1840 915 / 2755 1000 / 1000 Weight last 48 hrs Weight 258 lb Physical Exam Narrative: GENERAL: The patient is alert and oriented times three. Not in any acute distress. HEENT: No significant pallor, icterus or lymphadenopathy.Oral cavity: There are no mucous membrane lesions. NECK: Trachea appears to be central. No masses noted. No JVD or thyromegaly ap preciated. RESPIRATORY: Chest is symmetrical. No intercostals muscle retraction or any accessory muscle activation. There is no chest wall tenderness. Breath sounds are heard bilaterally. No rales or rhonchi heard. No evidence of any consolidation. BREASTS: Deferred. HEART: The heart sounds are normal. No S3 or S4. No significant murmurs. No pericardial rub ABDOMEN: No vessel pulsations or distention. No tenderness. No organomegaly appreciated. Bowel sounds are normally heard. : Deferred. RECTAL: Deferred. LYMPHATIC: No lymphadenopathy noted in the neck. EXTREMITIES: No edema or cyanosis. No clubbing. MUSCULOSKELETAL: No acute joint deformities or swelling SKIN: There are no significant rashes or ecchymosis NEUROPSYCHIATRIC: The patient is alert and oriented x3. Appears to be in a good mood. No tremors or rigidity noted. Data : 11/03/21 07:11 Other Labs: Laboratory Last Values Specimen Type Arterial 11/02/21 08:43 Sample Site Not Reportable 11/02/21 08:43 ABG pH 7.35 (7.35-7.45) 11/02/21 08:43 ABG pCO2 37.4 mmHg (35-45) 11/02/21 08:43 ABG pO2 36.7 mmHg (80.0-100.0) L* 11/02/21 08:43 ABG HCO3 20.6 mmol/L (22-26) L 11/02/21 08:43 ABG Base Excess Not Reportable 11/02/21 08:43 Davidson Test Pos 11/02/21 08:43 Hematocrit Not Reportable 11/02/21 08:43 O2 Delivery Device Not Reportable 11/02/21 08:43 Maritime Pilot ID Not Reportable 11/02/21 08:43 Sodium 138 mmol/L (136-145) 11/03/21 07:11 Potassium 4.2 mmol/L (3.5-5.1) 11/03/21 07:11 Chloride 106 mmol/L (98-107) 11/03/21 07:11 Carbon Dioxide 20 mmol/L (22-29) L 11/03/21 07:11 Anion Gap 16.2 (5-19) 11/03/21 07:11 BUN 34 mg/dL (8-23) H 11/03/21 07:11 Creatinine 0.9 mg/dL (0.7-1.2) 11/03/21 07:11 GFR Calculation Not Reportable 11/03/21 07:11 Glucose 172 mg/dL (65-115) H 11/03/21 07:11 POC Glucose 198 mg/dL (70-110) H 11/03/21 11:33 Calculated Osmolality 298 mOsm/kg (285-295) H 11/03/21 07:11 Calcium 8.9 mg/dL (8.5-10.5) 11/03/21 07:11 A&P Assessment and plan (1) Chronic kidney disease: The creatinine is back to normal today!. Advised to continue the poor hydration Status: Acute (2) Atherosclerosis of coronary artery of [place] heart without angina pectoris: For the angiogram findings, please refer to the report. Status: Acute (3) Carotid stenosis: Since the patient has no specific symptoms of carotid insufficiency, advised to continue on the current measures. We will have the follow-up evaluation as scheduled. Status: Acute Qualifiers: Laterality: bilateral Qualified Code(s): I65.23 - Occlusion and stenosis of bilateral carotid arteries (4) Hypertension: Since the blood pressure has been remaining in the normal range at home, I may hold off on any medication changes at this time. Advised to continue monitoring the blood pressure twice a day for the next 2 weeks -in the morning before the breakfast and also in the evening before going to bed. After reviewing the blood pressure recordings, further recommendations will be made Status: Acute Qualifiers: Hypertension type: essential hypertension Qualified Code(s): I10 - Essential (primary) hypertension (5) Sleep apnea: Continue on the current management. Follow-up evaluation as scheduled. Status: Acute Qualifiers: Sleep apnea type: obstructive Qualified Code(s): G47.33 - Obstructive sleep apnea (adult) (pediatric) Plan With the patient condition made stable, will be discharged home today. Will be seen in the clinic in a week, will expectoration. I will see him in the office as scheduled Attestations Medical Necessity Statement*: Discharge home today Coding Level of Care Code Acute Cdl Instructor for Olinda Sanches Diagnoses Chronic kidney disease N18.9 Atherosclerosis of coronary artery of [place] heart without angina pectoris I25.10 Carotid stenosis I65.23 Laterality: bilateral Hypertension I10 Hypertension type: essential hypertension Sleep apnea G47.33 Sleep apnea type: obstructive
--- NOTE | 2021-11-03 14:46 | PC.NURSE ---
dc'd pt piv and tele/ discharge instructions given to pt and spouse. verbalized understanding of all instructions, medications and follow up appointments. pt left via [facility] to private vehicle. I called in rx to [facility] per patients request. would not transmit via computer
== END 2021-11-03 14:45 | disposition home or self-care (01) ==
LOC: CCL 05:45 → CSU 10:18 → MEDSURG 19:56
PROVIDERS: Internal Medicine; PCP Family Medicine; Visit Provider Internal Medicine Cardiovascular Disease
DX: I25.10 Atherosclerotic heart disease of native coronary artery without angina pectoris (principal); E11.22 Type 2 diabetes mellitus with diabetic chronic kidney disease; N18.9 Chronic kidney disease, unspecified; I13.0 Hypertensive heart and chronic kidney disease with heart failure and stage 1 through stage 4 chronic kidney disease, or unspecified chronic kidney disease; I50.30 Unspecified diastolic (congestive) heart failure; I27.20 Pulmonary hypertension, unspecified; E78.5 Hyperlipidemia, unspecified; J44.9 Chronic obstructive pulmonary disease, unspecified; I25.2 Old myocardial infarction; E66.9 Obesity, unspecified; Z68.37 Body mass index [BMI] 37.0-37.9, adult; Z87.891 Personal history of nicotine dependence; G47.33 Obstructive sleep apnea (adult) (pediatric)
CPT/HCPCS: 36415; 36416; 80048; 82803; 82962; 93453; 93460; 93571; 96360; 96361; 96372; 99152; 99153; C1751; C1769; C1887; C1894; J1644; J2250; J3010; J3490; J7030; Q9967

== ENCOUNTER → 2021-11-11 11:36 | Outpatient (BNVA) | payer OTHER, SELFPAY | PROVIDERS: PCP Family Medicine; Referring Provider Internal Medicine Cardiovascular Disease; Visit Provider Nurse Practitioner Family | DX: I25.10 Atherosclerotic heart disease of native coronary artery without angina pectoris (principal); Z87.891 Personal history of nicotine dependence | CPT/HCPCS: 80048; 99214 ==

== ENCOUNTER → 2022-01-19 14:46 | Outpatient (BNVA) | payer OTHER, SELFPAY | PROVIDERS: PCP Family Medicine; Visit Provider Internal Medicine Cardiovascular Disease | DX: R06.02 Shortness of breath (principal); Z79.01 Long term (current) use of anticoagulants; I25.10 Atherosclerotic heart disease of native coronary artery without angina pectoris; I10 Essential (primary) hypertension; G47.33 Obstructive sleep apnea (adult) (pediatric); I65.23 Occlusion and stenosis of bilateral carotid arteries; N18.9 Chronic kidney disease, unspecified; E11.65 Type 2 diabetes mellitus with hyperglycemia; D64.9 Anemia, unspecified; Z87.891 Personal history of nicotine dependence | CPT/HCPCS: 36415; 80048; 83880; 85025; 99214 ==

== ENCOUNTER → 2022-04-14 08:34 | Outpatient (BNVA) | payer OTHER, SELFPAY | PROVIDERS: PCP Family Medicine; Visit Provider Internal Medicine Pulmonary Disease | DX: R06.02 Shortness of breath (principal); Z87.891 Personal history of nicotine dependence | CPT/HCPCS: 99213; 99214 ==

== ENCOUNTER 2022-05-17 10:13 | Observation (INO) | payer OTHER, SELFPAY ==
[2022-05-17 10:19] VITALS: BMI 35.9
--- NOTE | 2022-05-17 11:12 | W.ED.RECABL ---
HPI - Recheck/Abnormal Lab/Rx General: Chief Complaint: Recheck/Abnormal Lab/Rx Stated Complaint: ELEVATED TROPONIN/ HYPOTENSIVE Time Seen by Provider: 05/17/22 10:36 History of Present Illness: This 71-year-old male was transferred from [facility] for evaluation of elevated troponin and hypoglycemia. Patient had an appointment with the visual manager this morning here in [place]. He had taken his Lantus, glipizide and metformin this morning prior to leaving home. On the drive to [facility], noticed that patient was acting disoriented. For instance, he wanted to drink out of his water bottle, but he was searching for his mouth. When he put the water bottle down, he placed it sideways. So, turned around and took him to the nearest ER ([facility]). There, his blood sugar was found to be 27. D50 was administered with good response. Work-up revealed an elevated troponin of 87. Patient has a past history of coronary artery disease and was told that he had a 50% blockage in one of his coronary arteries. Though patient had indicated that he did not have chest pain at [place], he tells me that he has a chest pressure that he rates as 1 out of 10. He appears clinically stable. The piano and organ refinisher here was consulted and he recommended that patient be transferred to the ER for further evaluation. Review of Systems Const: Denies: chills, body aches or change in appetite Eyes: Denies: change in vision or eye discharge ENMT: Denies: throat pain, dental pain or nasal discharge Card: Reports: chest pain (Chest pressure. 1 out of 10.); Denies: lightheadedness : Denies: dysuria Musc: Denies: neck pain or back pain Neuro: Denies: headache(s) or weakness in extremities Psych: Denies: depression Danny/Lymph: Denies: easy bruising All/Imm: Denies: urticaria, tongue swelling or facial swelling PFSH ED PFSH: Medical History Saenz's palsy L side Diabetes mellitus Hypertension ALANNAH (obstructive sleep apnea) HS CPAP Recurrent umbilical hernia Surgical History History of cataract extraction History of colonoscopy History of eye surgery History of placement of ear tubes History of total right hip arthroplasty History of umbilical hernia repair Hx of oral surgery Family History Father Stroke Sister Cancer Diabetes Brother Aneurysm Denies family history of CAD (coronary artery disease) Clotting disorder Dementia Chronic kidney disease (CKD) Suicide Anesthesia complication Bleeding disorder Lung disease Social History Smoking and tobacco status: former smoker Quit status (tobacco): has quit using tobacco Year quit tobacco: 1986 Former quit date comment: Hx of 1 PPD x 15 Years Second hand smoke exposure: No Smoking risk assessment/counseling performed?: No Alcohol intake: never Counseling given: No Counseling given: No Lives independently: Yes Household members: spouse Marital status: service: Yes Current occupational status: retired and disabled History of recent travel: No Current gender identity: Male Physical Exam Const: COMMON NORMALS: no acute distress, patient oriented x3, no limitations and alert HENMT: COMMON NORMALS: normocephalic HEAD & SCALP: normocephalic Eye: COMMON NORMALS: EOMs intact bilaterally Neck/C-Spine: COMMON NORMALS: full ROM and supple Chest: COMMONS NORMALS: normal inspection of the chest Resp: COMMON NORMALS: normal respiratory effort, No retractions, No use of accessory muscles and clear to auscultation bilaterally AUSCULTATION: clear to auscultation bilaterally Cardio: COMMON NORMALS: regular rate, regular rhythm and No murmurs present (Cardio) RATE: regular rate RHYTHM: regular rhythm GI: COMMON NORMALS: Normal to inspection, nondistended, normoactive bowel sounds present and non-tender : COMMON NORMALS: Yes no CVA tenderness BLADDER/KIDNEY EXAM: Yes no CVA tenderness Back/Pelvis: COMMON NORMALS: no CVA tenderness and no thoracic nor lumbar tenderness Extremity: GENERAL: Yes normal exam except as noted Neuro: COMMON NORMALS: patient oriented x3 and no focal motor deficits SENSORIUM/ORIENTATION: Yes alert Psych: COMMON NORMALS: mental status grossly normal and cooperative Course Vital Signs: Vital signs: Vital Signs Pulse Rate 75 05/17/22 13:52 Respiratory Rate 16 05/17/22 13:52 Blood Pressure 131/96 05/17/22 13:52 Pulse Oximetry 98 01/30/23 13:52 Oxygen Delivery Me thod 05/17/22 13:52 MDM - Recheck/Abnormal Lab/Rx Medical Decision Making Medical decision making: Patient was brought in by due to a hypoglycemic episode that led to confusion. Work-up reveals elevated troponin. So, he was transferred from [facility] to be evaluated. Orthotic/Prosthetic Clinician recommends hospitalist admission. Lab Data Laboratory Results POC Glucose 175 mg/dL (70-110) H 05/17/22 12:39 Troponin T Baseline 74 ng/L (0-15) H 05/17/22 12:05 Troponin T 120 Minute 69.29 ng/L (0-15) H 05/17/22 14:00 Delta Troponin T -4.71 ABS# (0-10) L 05/17/22 14:00 EKG Data EKG 1: Interpretation: Sinus rhythm, rate of 71, interventricular conduction delay, normal axis, no acute STEMI. Discharge Plan Discharge Patient Disposition: Placed in Observation Admit Provider: Peggy Ardon Clinical Impression: Elevated troponin, Hypoglycemia Coding Level of Care Code ED Product Support Technician for Chg Fwd Exam Comprehensive
[2022-05-17 11:55] VITALS: BP 110/61; PULSE 78; RESP 16; O2SAT 98
[2022-05-17 12:33] LABS: Troponin(5th) Baseline 74 ng/L (0-15)
[2022-05-17 13:01] LABS: Glucose Point of Care 175 mg/dL (70-110)
--- NOTE | 2022-05-17 13:12 | ECG_ITS ---
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 Measurements Intervals [place] Rate: 71 P: 23 SC: 141 QRS: -11 QRSD: 111 T: 57 QT: 369 QTc: 403 Interpretive Statements SINUS RHYTHM MODERATE INTRAVENTRICULAR CONDUCTION DELAY [110+ ms QRS DURATION] Compared to ECG 03/25/2020 18:16:46 Intraventricular conduction delay now present T-wave abnormality no longer present Electronically Signed On 05-17-2022 15:18:22 HAZARDOUS WASTE MATERIAL TECHNICIAN by Jean Momin M.D. [id number]
[2022-05-17 13:52] VITALS: BP 131/96; PULSE 75; RESP 16; O2SAT 98
[2022-05-17 14:32] LABS: Troponin 5 2HR 69.29 ng/L (0-15)
[2022-05-17 14:34] LABS: Troponin 5 2HR Delta -4.71 ABS# (0-10)
--- NOTE | 2022-05-17 15:38 | PM.HP ---
Providers/Chief Complaint Admitting Physician: Peggy Ardon MD Primary Care Provider: Lauren Proctor MD Chief Complaint: ELEVATED TROPONIN/ HYPOTENSIVE History of Present Illness Mei Mathews is a 71 year old male who presented to [facility]. Mr. Montoya was on his way to Dr. Fierro's office for eye surgery today. Him and his left early to try to avoid the weather. He took his usual medications which included Lantus, metformin, glipizide and Jardiance along with metoprolol, Lasix, hydralazine, metolazone, lisinopril, and isosorbide. He did not eat breakfast today. Original plan had been for him and his to get something to eat at [employer] but they did not make it. Mr. Mathews started acting confused on the drive into [place]. He was not making sense. Records from [facility] indicates that he was not cooperative initially. In the car he had difficulty getting a water bottle into his mouth and was not responding like his usual self. His went immediately to the closest ER which was at [place]. Blood sugar there was found to be 27. Patient was given some orange juice and other management for blood sugar. There is an indication that blood pressures in the 60s over 40s that responded to IV fluid bolus. Work-up subsequently revealed an elevated troponin. Patient has a history of cardiac catheterization in October 2021 in which she was found to have a 20% left main, 50 to 60% proximal RCA, and 70% PDA lesion with mild diffuse disease otherwise. At that point in time Dr. Harmon added metoprolol and isosorbide to his medication regimen for medical management. Given this history and the elevated troponin without any acute ST segment changes noted on EKG, the case was discussed with cardiology who recommended transfer to [facility]. Patient was seen in the emergency room here and he reported some chest tightness may be a 1-2 out of 10 that has been present today. No other episodes previously. He has had similar presentation with alteration of mental status in the past that was also found to be associated with hypoglycemia. Repeat troponin here with a new baseline and 2-hour value revealed a negative delta at -4.71. Twelve-lead EKG did not show any acute ST segment changes with sinus rhythm at 78 bpm. Given prior history and events of today he is being admitted for further observation and evaluation as indicated. Review of Systems Const: Denies: fever(s) or chills ENMT: Denies: throat pain or nasal congestion Card: Reports: chest pain (Tightness as described), edema and dyspnea on exertion (Overall improved ); Denies: orthopnea Resp: Denies: productive cough or non-productive cough GI: Reports: diarrhea; Denies: nausea, vomiting or constipation : Denies: difficulty urinating Skin/Breast: Reports: other (Recently had right great toenail extracted) Neuro: Reports: other (Other than confusion, no clear focal deficits scribed, no LOC) Danny/Lymph: Denies: easy bruising or easy bleeding Medications/Allergies Home Medications Medication Instructions Recorded Confirmed Last Taken Type cholecalciferol (vitamin D3) 50 50 mcg PO DAILY@03/25/20 05/17/22 05/17/22 History mcg (2,000 unit) tablet (Vitamin D3) fluticasone propionate 50 1 - 2 spray intranasal DAILY PRN 03/25/20 05/17/22 Unknown History mcg/actuation nasal Allergy Symptoms spray,suspension lisinopril 40 mg tablet 60 mg PO DAILY@03/25/20 05/17/22 05/17/22 History multivitamin 1 tab PO DAILY 03/25/20 05/17/22 05/17/22 History aspirin 81 mg tablet,delayed 81 mg PO DAILY #30 tabs 03/27/20 05/17/22 05/17/22 Rx release (Enteric Coated Aspirin) omeprazole 20 mg capsule,delayed 20 mg PO DAILY #60 caps 03/27/20 05/17/22 05/17/22 Rx release hydralazine 100 mg tablet 100 mg PO TID 30 days #90 tabs 07/23/20 05/17/22 05/17/22 Rx ipratropium 20 mcg-albuterol 100 1 puff inhalation Q4H PRN Dyspnea 10/14/20 05/17/22 Unknown History mcg/actuation mist for inhalation (Combivent Respimat) empagliflozin 25 mg tablet 25 mg PO DAILY 04/13/21 05/17/22 05/17/22 History (Jardiance) ezetimibe 10 mg tablet 10 mg PO DAILY 04/13/21 05/17/22 05/17/22 History glipizide 10 mg tablet 10 mg PO BID@05,18 04/13/21 05/17/22 05/17/22 History insulin glargine 100 unit/mL 74 unit SUBCUT DAILY 04/13/21 05/17/22 05/17/22 History subcutaneous solution (Lantus U-100 Insulin) omega-3 fatty acids 1,000 mg 1,000 mg PO BID 04/13/21 05/17/22 05/17/22 History capsule (Fish Oil Concentrate) furosemide 40 mg tablet (Lasix) 40 mg PO DAILY 10/13/21 05/17/22 05/17/22 History tamsulosin 0.4 mg capsule 0.4 mg PO DAILY 11/11/21 05/17/22 05/17/22 History isosorbide mononitrate 30 mg 30 mg PO DAILY #90 tabs 11/30/21 05/17/22 05/17/22 Rx tablet,extended release 24 hr metoprolol tartrate 25 mg tablet 25 mg PO BID #180 tabs 11/30/21 05/17/22 05/17/22 Rx tiotropium 2.5 mcg-olodaterol 2.5 2 puff inhalation DAILY #4 grams 01/13/22 05/17/22 05/17/22 Rx mcg/actuation mist for inhalation (Stiolto Respimat) metolazone 2.5 mg tablet 2.5 mg PO DAILY #90 tabs 03/16/22 05/17/22 05/17/22 Rx ciprofloxacin 0.3 %-dexamethasone 4 drp otic (ear) BID 04/14/22 05/17/22 Unknown History 0.1 % ear drops,suspension cetirizine 10 mg tablet 10 mg PO DAILY PRN Allergy Symptoms 05/17/22 05/17/22 Unknown History clotrimazole 1 % topical cream 1 applic topical DAILY PRN Rash 05/17/22 05/17/22 Unknown History metformin 500 mg tablet,extended 500 mg PO BID 05/17/22 05/17/22 05/17/22 History release 24 hr psyllium husk (aspartame) 3.4 3.4 g PO DAILY 05/17/22 05/17/22 05/16/22 History gram/5.8 gram oral powder Allergies Allergy/AdvReac Type Severity Reaction Status Date / Time No Known Allergies Allergy Verified 05/17/22 13:43 PFSH Acute PFSH: Medical History (Updated 05/17/22 @ 18:02 by Peggy Ardon MD) Atherosclerosis of coronary artery of [place] heart without angina pectoris Saenz's palsy L side Benign prostate hyperplasia Carotid stenosis Chronic kidney disease Diabetes mellitus Diastolic dysfunction Grade 1 History of echocardiogram 03/2020 History of Holter monitoring 04/2020 History of left heart catheterization 10/2021 20% LM, 50-60% proximal RCA, 70% PDA branch, mild diffuse disease other vessels. LVEDP 20 mmHg. Had Right Heart Cath also and showed mean PAP 34 mmHg and PCWP 21 mmHg. History of PFTs 10/2020 Hypertension ALANNAH (obstructive sleep apnea) HS CPAP Recurrent umbilical hernia Seasonal allergies Surgical History (Updated 05/17/22 @ 17:33 by Peggy Ardon MD) History of cataract extraction History of colonoscopy History of eye surgery History of placement of ear tubes History of total right hip arthroplasty History of umbilical hernia repair Hx of oral surgery Status post surgical removal of nail matrix of toe Family History Father Stroke Sister Cancer Diabetes Brother Aneurysm Denies family history of CAD (coronary artery disease) Clotting disorder Dementia Chronic kidney disease (CKD) Suicide Anesthesia complication Bleeding disorder Lung disease Social History (Updated 05/17/22 @ 16:57 by Peggy Ardon MD) Smoking and tobacco status: former smoker Quit status (tobacco): has quit using tobacco Year quit tobacco: 1986 Former quit date comment: Hx of 1 PPD x 15 Years Second hand smoke exposure: No Alcohol intake: never Substance/Drug Use: never Lives independently: Yes Household members: spouse Marital status: service: Yes Current occupational status: retired and disabled Current gender identity: Male Vitals/I&O/Wt Last Vital Signs Pulse 75 05/17/22 13:52 Resp 16 05/17/22 13:52 BP 131/96 05/17/22 13:52 Pulse Ox 98 05/17/22 13:52 O2 Del Method 05/17/22 13:52 Weight last 48 hrs Weight 113.398 kg Physical Exam Narrative: Awake and alert, oriented to person place and situation and able to provide history, normocephalic, pupils are equally reactive, patient membranes, neck is large but supple, regular rate and rhythm, clear to auscultation bilaterally without any rales rhonchi or wheezes noted, abdomen is soft, nontender, 1+ edema pretibial bilaterally with chronic stasis changes noted, right great toe nailbed is healing as expected from recent extraction with no erythematous streaks beyond the nailbed area or up the toe, no purulence or odor. Speech clear, face symmetric, moves all extremities, no abnormal movements noted. Data Other Labs: Labs from outside facility were reviewed and include white count of 12,000, H&H of 02/15, platelet count 194, 57% segmented neutrophils, sodium 134, potassium 4.6, chloride 104, CO2 12, calcium 8.8, BUN and creatinine 112/2.96, albumin of 4.5, total bilirubin of 0.2, alkaline phosphatase 64, AST and ALT of 20 and 26 respectively. Initial baseline troponin was 87. Although I was told that second troponin was performed at outside facility I do not see such value in available records. INR was 1.1, PTT 29, D-dimer 1.64, CRP less than 3, ESR 25. A&P Assessment and plan (1) AMS (altered mental status): Secondary to hypoglycemia and hypotension, present on outside hospital, improved upon arrival here and currently back to baseline. (2) Hypoglycemia: With blood sugars at 27 at outside hospital. Patient had taken his diabetic medications this morning without having his usual breakfast to follow, but also noted to have acute kidney injury and very likely is not clearing glipizide as efficiently as he might normally. Patient is a known type II diabetic on long-term insulin therapy with peripheral neuropathy per available records. (3) Hypotension: Blood pressures as low as 60/40 at outside facility but responded nicely to IV fluids. Currently with normalized blood pressures. He did take all of his antihypertensive medications this morning as prescribed. (4) Acute kidney injury: Last available comparative labs are from January 2022 when BUN and creatinine were 58/1.6. Patient has known chronic kidney disease stage III. Current values are essentially double previous. Patient has had addition of isosorbide and metoprolol to his medication regimen in January and is also chronically on 2 diuretics as well as an JORGE inhibitor. Patient denies any recent medication changes. I suspect he may have been having hypotension and subsequent development of ATN leading to acute kidney injury and contributing to development of both hypoglycemia and today's hypotension. (5) Elevated troponin: In a patient with known coronary artery disease by arteriogram done last year that was for medical management. With current acute kidney injury, lack of EKG changes and lack of significant delta, do not feel patient is currently experiencing acute coronary syndrome although he could have a type II process from demand ischemia in the setting of significant hypotension today. He does not describe a pattern of angina lately. (6) Diastolic dysfunction: Grade 1 by last echocardiogram with normal ejection fraction although study was performed in March 2020. Had pulmonary capillary wedge pressure 21 mmHg consistent with some mild pulmonary hypertension. (7) ALANNAH (obstructive sleep apnea): On chronic CPAP therapy at night (8) Benign prostate hyperplasia: On chronic Flomax therapy (9) Status post surgical removal of nail matrix of toe: Recent great toenail removal on the right foot that continues to heal Plan Missed eye surgery today due to acute events Observation admission for now Monitor blood sugars for recurrent drop Serial neuro exams Telemetry monitoring Sliding scale insulin for now with a significantly lower dose of Lantus to be resumed if not experiencing recurrent or ongoing hypoglycemia in the morning Check hemoglobin A1c Low rate of IV fluids overnight Hold diuretics and JORGE inhibitor > these were taken today by Mr. Mathews Repeat electrolytes in the morning and if renal function not improving will consider nephrology evaluation We will have to determine feasibility of resuming medications prior to discharge depending on renal function and blood pressure along with volume status All oral hypoglycemic agents to be held currently; discharge decision will need to be made regarding feasibility of resuming metformin and glipizide especially if renal function does not improve Will decrease hydralazine dosing, continue isosorbide and metoprolol Check echocardiogram Repeat troponin and hot dip plating supervisor blood pressures for need to adjust treatment Continue home aspirin therapy and Zetia Monitor overall volume status particularly with holding of diuretics CPAP with sleep Will continue Flomax Check urinalysis Continue home PPI Breathing treatments if needed Neosporin to right great toe daily with Band-Aid Continue home Metamucil Supportive care otherwise Findings, concerns and plans were discussed with patient and he was given an opportunity to ask questions Anticipate discharge home with close follow-up to primary care provider. Will need monitoring of blood pressure, blood sugars and follow-up laboratory studies. May benefit from outpatient nephrology referral. Patient's next appointment with Dr. Harmon is not until July 2022. Given acute events and potential for medication changes following this hospital stay will need to arrange for sooner outpatient follow-up. Full code Attestations Medical Necessity Statement*: Currently anticipate a stay less than 2 midnights and the patient presenting with hypoglycemia and hypotension after taking his usual morning medications today. He has evidence of acute kidney injury as a contributing factor to the development of laboratory and vital sign abnormalities. He will receive IV fluids, have some medications held and be reevaluated as described. Coding Level of Care Code 84120 High MDM (Acute kidney injury (CKD), hypoglycemia (DMII), hypotension (HTN,CAD)) includes risk/complexity, reviewing previous or external records, reviewing test results and ordering lab/other test(s) and High Time for a total of 75 minutes, includes reviewing past or interval history, examining/interviewing patient, placing orders, updating patient/family/other support, discussing plan of care with staff and documenting encounter Diagnoses AMS (altered mental status) R41.82 Hypoglycemia E16.2 Hypotension I95.9 Acute kidney injury N17.9 Elevated troponin R77.8 Diastolic dysfunction I51.89 ALANNAH (obstructive sleep apnea) G47.33 Benign prostate hyperplasia N40.0 Status post surgical removal of nail matrix of toe Z98.890
[2022-05-17 15:59] VITALS: BMI 35.9
[2022-05-17 17:09] VITALS: BP 117/61; PULSE 82; RESP 18; TEMP 36.6; O2SAT 98
--- NOTE | 2022-05-17 17:09 | USCV_ITS ---
Mei Mathews Age: 71 Gender: M : 1950 Exam Date: 05/17/2022 18:07 Ordering Phys: Peggy Ardon MD Technologist: RICA Exam Location: [facility] [place] Indication: elevated troponin, ams, hx CAD, s/p angio 2021 = no treatment. BP: 131 / 96 HR: 80 Rhythm: Sinus Technical Quality: Adequate with [employer] MEASUREMENTS (Male / Female) Normal Values 2D ECHO LV Diastolic Diameter PLAX 4.5 cm 4.2 - 5.9 / 3.9 - 5.3 cm LV Systolic Diameter PLAX 2.9 cm IVS Diastolic Thickness 1.6 cm 0.6 - 1.0 / 0.6 - 0.9 cm IVS Systolic Thickness 1.6 cm LVPW Diastolic Thickness 1.7 cm 0.6 - 1.0 / 0.6 - 0.9 cm LVPW Systolic Thickness 1.9 cm LVOT Diameter 2.3 cm LV Ejection Fraction 2D Teich 65.2 % LV Ejection Fraction MOD 2C 68.7 % LV Ejection Fraction 2C AL 68.3 % LA Diameter 4.6 cm LA Width 5.4 cm LA Height 6.6 cm RA Width 2.4 cm RA Height 4.1 cm Aorta at Sinotubular Diameter 3.9 cm IVC Diameter 2.0 cm M-MODE Aortic Annulus Diameter 4.8 cm LA Ao Ratio MM 1.0 MV E Point Septal Separation 0.3 cm DOPPLER AV Peak Velocity 193.0 cm/s LVOT Peak Velocity 79.0 cm/s AV Area Cont Eq vti 2.0 cm squared AV Area Cont Eq pk 1.6 cm squared MV Area PHT 3.0 cm squared Mitral E to A Ratio 0.8 MV E' Velocity 63.5 cm/s Mitral E to MV E' Ratio 11.8 Mitral E to LV E' Lateral Ratio 8.8 Mitral E to LV E' Septal Ratio 18.2 TV Peak E Velocity 42.0 cm/s PV Peak Velocity 127.0 cm/s FINDINGS Left Ventricle Left ventricle is normal in size. LV systolic function is normal with EF of 60 to 65%. No regional wall motion abnormalities are seen. Grade 1 diastolic dysfunction. Right Ventricle Normal in size and function Right Atrium Normal in size Left Atrium Dilated Mitral Valve Mild mitral annular calcification is seen. Aortic Valve Not well-visualized. Tricuspid Valve Not well-visualized. Inadequate TR jet to calculate RVSP Pulmonic Valve Not well-visualized Pericardium Grossly normal Aorta Dilated ascending aorta with a diameter of 4.1 cm. IVC Appears to be normal CONCLUSIONS Technically limited quality echocardiogram because of poor ultrasonic windows. LV systolic function is normal with EF of 60 to 65% Grade 1 diastolic dysfunction Left atrial dilation Dilated ascending aorta with diameter of 4.1 cm Compared to prior echocardiogram from 2019, patient now has mildly dilated ascending aorta Jean Momin MD (Electronically Signed) Final Date: 18 May 2022 10:18 S
--- NOTE | 2022-05-17 17:12 | ECG_ITS ---
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 Measurements Intervals [place] Rate: 78 P: 13 MA: 147 QRS: -10 QRSD: 124 T: 52 QT: 354 QTc: 404 Interpretive Statements SINUS RHYTHM MODERATE INTRAVENTRICULAR CONDUCTION DELAY [110+ ms QRS DURATION] Compared to ECG 05/17/2022 11:32:32 No significant changes Electronically Signed On 05-17-2022 19:55:33 ENGLISH PROFESSOR by Jena Momin M.D. [id number]
[2022-05-17 17:35] LABS: Glucose Point of Care 195 mg/dL (70-110)
[2022-05-17] MEDS: sodium chloride 0.9% 1,000 ML 50 ML IV (18:18)
[2022-05-17] MEDS: insulin lispro 100 unit/1 mL SUBCUT (18:18)
[2022-05-17 18:47] LABS: Troponin 5 6HR 62.85 ng/L (0-15)
[2022-05-17 18:51] LABS: Troponin 5 6HR Delta -11.15 ng/L (0-12)
[2022-05-17 20:00] VITALS: BP 127/63; PULSE 74; PULSE 84; RESP 15; RESP 16; TEMP 36.9; O2SAT 95; O2SAT 96
[2022-05-17] MEDS: hyDRALAzine 50 mg Tablet 25 MG PO (20:34)
[2022-05-17] MEDS: metoprolol tartrate 25 mg Tablet PO (20:34)
[2022-05-17 21:28] LABS: Glucose Point of Care 78 mg/dL (70-110)
[2022-05-17 22:00] VITALS: PULSE 82
[2022-05-17 23:01] LABS: Add Urine Microscopic? NO; Charge for UA Resulting for Rev
[2022-05-17 23:06] LABS: Bilirubin Urine Neg (Negative); Blood Urine Neg (Negative); Glucose Urine UA 4+ (Normal); Ketones Urine Negative (Negative); Leukocyte Esterase Urine Negative (Negative); Nitrate Urine Negative (Negative); Protein Urine Neg (Negative); Specific Gravity, Urine 1.015 (1.005-1.030); Urine Appearance Clear (CLEAR); Urine Color Light yellow (Yellow); Urobilinogen Urine Norm (Negative); pH Urine 5 (5-7)
[2022-05-18] VITALS (15 sets, daily range): BP systolic 100–127; BP diastolic 52–73; PULSE 71–98; RESP 14–18; TEMP 36.6–37.1; O2SAT 94–97
[2022-05-18 02:41] LABS: Basophils # 0.1 10^3/uL (0.0-0.1); Basophils % 0.8 %; Eosinophils # 0.2 10^3/uL (0.0-0.8); Eosinophils % 2.6 %; Hematocrit 30.5 % (42.0-52.0); Lymphocytes # 1.5 10^3/uL (0.8-4.8); Lymphocytes % 22.6 %; Mean Corpuscular HGB Conc 32.8 g/dL (30.0-36.0); Mean Corpuscular Volume 91.6 fl (80-94); Mean Platelet Volume 10.9 fL (7.4-10.4); Monocytes # 0.6 10^3/uL (0.2-0.9); Monocytes % 9.4 %; Neutrophils # 4.24 10^3/uL (1.8-7.7); Neutrophils % 64.3 %; Nucleated Red Blood Cells % 0 %; Platelet Count 160 10^3/cmm (130-400); Red Blood Count 3.33 10^6/uL (4.1-5.3); Red Cell Distribution Width 12.9 % (12.1-15.1); White Blood Count 6.6 10^3/uL (4.0-10.0)
[2022-05-18 03:08] LABS: Alanine Aminotransferase 24 U/L (0-41); Albumin Level 4.2 g/dL (3.5-5.2); Alkaline Phosphatase 61 U/L (40-130); Anion Gap 20.4 (5-19); Aspartate Amino Transferase 20 U/L (0-40); Calcium 8.6 mg/dL (8.5-10.5); Carbon Dioxide 14 mmol/L (22-29); Chloride 107 mmol/L (98-107); Globulin 2.1 g/dL (1.3-4.6); Glucose 78 mg/dL (65-115); Magnesium 1.7 mg/dL (1.7-2.3); Osmolality Calculated 310 mOsm/kg (285-295); Potassium 5.4 mmol/L (3.5-5.1); Sodium 136 mmol/L (136-145); Total Bilirubin 0.2 mg/dL (0.15-1.2); Total Protein 6.3 g/dL (6.6-8.7); Troponin T (5th) Once 67 ng/L (0-15)
[2022-05-18 03:12] LABS: NT Pro B Type Natriuretic Pept 245 pg/mL (0-125)
[2022-05-18 03:42] LABS: Estmated Average Glucose 171; Hemoglobin A1C 7.6 % (4.0-6.0)
[2022-05-18 04:06] LABS: Blood Urea Nitrogen 95 mg/dL (8-23)
[2022-05-18] MEDS: perflutren protein-a microsphr 0.22 mg/mL SDV 3 mL IV (05:45)
[2022-05-18 06:32] LABS: Glucose Point of Care 95 mg/dL (70-110)
[2022-05-18] MEDS: psyllium powder Pkt 1 PACKET PO (08:45)
[2022-05-18] MEDS: isosorbide mononitrate ER 30 mg Tablet PO (08:46)
[2022-05-18] MEDS: pantoprazole DR 40 mg Tablet PO (08:46)
[2022-05-18] MEDS: ezetimibe 10 mg Tablet PO (08:46)
[2022-05-18] MEDS: hyDRALAzine 50 mg Tablet 25 MG PO (08:46)
[2022-05-18] MEDS: aspirin 81 mg EC Tablet PO (08:46)
[2022-05-18] MEDS: tamsulosin 0.4 mg Capsule PO (08:46)
[2022-05-18] MEDS: insulin glargine 100 units/1 mL 15 UNIT SUBCUT (08:47)
[2022-05-18] MEDS: metoprolol tartrate 25 mg Tablet PO ×2 (08:59→20:04)
--- NOTE | 2022-05-18 10:00 | ECG_ITS ---
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 Measurements Intervals Wayne Rate: 85 P: 34 AR: 181 QRS: -20 QRSD: 111 T: 69 QT: 340 QTc: 405 Interpretive Statements SINUS RHYTHM MODERATE INTRAVENTRICULAR CONDUCTION DELAY [110+ ms QRS DURATION] Compared to ECG 05/17/2022 16:57:49 No significant changes Electronically Signed On 05-18-2022 16:12:27 HYDRAULIC TESTER by Jazlyn Downing M.D. [id number]
--- NOTE | 2022-05-18 10:24 | PC.CHAP ---
Pastoral Care Encounter/Spiritual Assessment Type of Contact [] Declined ditch rider visit [] Patient/Family/Request visit [] Outpatient visit [] Follow-up visit [] Physician referral [] Code/Alert x[] Routine visit [] Staff referral [] Actively dying [] Patient sleeping [] Family support [] [] Out of room [] Palliative care [] [] Receiving care in room [] Pre-surgical visit [] Trauma [] Long length of stay [] ICU visit [] Other: Relational/Emotional Strength [] Patient feels connected with others/family/visitors/staff [] Distress [] Loneliness/isolation [] Abandonment Spirituality of Patient [] Person of Mel [] Attends Rastafari of their Mel [] Believes in Prayer [] Reads Bible or Catholic materials [x] There are Spiritual issues to be addressed Data Operations Leader Interventions [] Prayer [] Active listening [] Non-anxious presence [] Spiritual/emotional support [] Crisis/trauma care [] Spiritual counseling [] Bereavement support [] Provided bereavement packet [] Provided Bible/devotional materials [] Provided toy/stuffed animal, coloring book to patient or family member [] Provided Communion [] Anointing/[facility] [] Salvation [x] Completed spiritual assessment [] Other: Impact on Illness or Injury [] Angry [] Fearful [] Anxious [] Often cries [] Exhaustion [] Unable to work [] Unable to attend yazdanism [] Unable to walk/stand [] Unable to read [] Unable to drive [] Unable to eat/drink [] Unable to sleep [] Unable to be with family [] Patient intubated [] Other: Summary Time spent with patient
[2022-05-18 11:35] LABS: Glucose Point of Care 189 mg/dL (70-110)
[2022-05-18] MEDS: insulin lispro 100 unit/1 mL SUBCUT ×2 (12:40→21:34)
[2022-05-18] MEDS: neomycin-poly-bacitracin oint 28 gm 1 APPLIC TOPICAL (12:41)
--- NOTE | 2022-05-18 12:57 | PM.PN ---
Subjective Subjective: Seen this morning. Patient states that yesterday when he came in he had some chest tightness which did resolve on its own later on. He was not sure what was wrong. He states he had a cath done last year and has states not recently had a stress test. He says his main reason to come to the hospital was having low blood sugars. He does know that he has some kidney issues however did not know that his creatinine had worsened compared to before. At this point he is chest pain-free, denies any shortness of breath. Vitals/I&O/Wt Last Vital Signs Temp 98.3 F 05/18/22 08:00 Pulse 89 05/18/22 08:59 Resp 16 05/18/22 08:34 BP 123/64 05/18/22 08:59 Pulse Ox 95 05/18/22 08:34 O2 Del Method 05/18/22 08:34 Weight last 48 hrs Weight 118.586 kg Weight 113.398 kg Weight 113.398 kg Physical Exam Narrative: General: Alert oriented x3, patient seen sitting up in bed appearing comfortable at this time. Denies any chest pain or shortness of breath. HEENT: Normocephalic, atraumatic, EOMI, breathing comfortably Cardio: Regular rate rhythm, normal S1-S2, Respiratory: Clear to auscultation bilaterally no wheezes no rhonchi. GI: Abdomen soft, nontender, nondistended, bowel sounds + Extremities: No lower extremity edema noted. Data 05/18/22 01:30 05/18/22 01:30 A&P Assessment and plan (1) Elevated troponin: (2) ALANNAH (obstructive sleep apnea): (3) Hypertension: Qualifiers: Hypertension type: essential hypertension Qualified Code(s): I10 - Essential (primary) hypertension (4) Diabetes mellitus: Qualifiers: Diabetes mellitus complication detail: with unspecified neuropathy Diabetes mellitus complication status: with neurologic complications Diabetes mellitus middle or intermediate school principal insulin use: with middle or intermediate school principal use Diabetes mellitus type: type 2 Qualified Code(s): E11.40 - Type 2 diabetes mellitus with diabetic neuropathy, unspecified; Z79.4 - intermediate (current) use of insulin (5) Chronic kidney disease: (6) Hypoglycemia: (7) AMS (altered mental status): (8) Diastolic dysfunction: (9) High anion gap metabolic acidosis: (10) Hyperphosphatemia: (11) Hyperkalemia: Plan #Hypoglycemic episode #Acute kidney injury, worsening #High anion gap metabolic acidosis most likely due to renal failure #Altered mental status present on admission?resolved #Hypotension at outside facility?resolved #Elevated troponin, history of coronary artery disease. Medical management #Chronic congestive diastolic heart failure #Obstructive sleep apnea #Benign prostatic hyperplasia #S/p surgical removal of nail matrix of toe #Hyperphosphatemia ? Blood sugars have been stable. Continue to hold metformin and glipizide. ? Continue on Lantus 15 units daily. Patient was on 74 units at home. We will hold that at this time. Low-dose intensity sliding scale at this time. ? Due to impaired renal function patient is probably not clearing his insulin and glipizide at this time. ? Continue Imdur, Lopressor, hydralazine 25 3 times daily, Zetia, aspirin. ? I will start patient on sodium bicarbonate 650 3 times daily ? We will repeat labs today and consult nephrology -Patient will definitely need adjustment of his home medications at discharge. - He is chest pain free at this time. Delta trop negative. Most likely demand ischemia. Full Code DVT PPX: Heparin Attestations Medical Necessity Statement*: Continue inpatient hospitalization for management of worsening REBECA. Coding Level of Care Code Acute Code for [facility] Diagnoses Elevated troponin R77.8 ALANNAH (obstructive sleep apnea) G47.33 Hypertension I10 Hypertension type: essential hypertension Diabetes mellitus E11.40; Z79.4 Diabetes mellitus complication detail: with unspecified neuropathy Diabetes mellitus complication status: with neurologic complications Diabetes mellitus middle or intermediate school principal insulin use: with middle or intermediate school principal use Diabetes mellitus type: type 2 Chronic kidney disease N18.9 Hypoglycemia E16.2 AMS (altered mental status) R41.82 Diastolic dysfunction I51.89 High anion gap metabolic acidosis E87.29 Hyperphosphatemia E83.39 Hyperkalemia E87.5
--- NOTE | 2022-05-18 13:49 | PM.CONSULT ---
Providers/Reason For Consult Consulting Physician/Specialty*: hunter doran md / telenephrology Reason for Consult*: REBECA on CKD, met acidosis Requesting Physician: Dr Criss Billings Attending Physician: Marielena Billings MD Primary Care Provider: Lauren Proctor MD History of Present Illness History of Present Illness Mei Mathews is a 71 year old male was admitted yesterday for hypoglycemia and hypotension. HE was given fluids and glucose and renal is aksed to see pt for progressive renal failure. He had some Chest tightness yesterday. He had a cardiac cath in October 2021, he was found to have a 20% left main, 50 to 60% proximal RCA, and 70% PDA lesion with mild diffuse disease otherwise.? Pt has known CKD stage [address] Galicia. Pt has long standing ALANNAH on CPAP, IDDM on insulin, metformin, jardiance and glipizide. He is on an JORGE-i. His DM is complicated by neuropathy and retinopathy. Review of Systems Narrative: weak, confused, chest tightness, edema Medications/Allergies Home Medications Medication Instructions Recorded Confirmed Last Taken Type cholecalciferol (vitamin D3) 50 50 mcg PO DAILY@03/25/20 05/17/22 05/17/22 History mcg (2,000 unit) tablet (Vitamin D3) fluticasone propionate 50 1 - 2 spray intranasal DAILY PRN 03/25/20 05/17/22 Unknown History mcg/actuation nasal Allergy Symptoms spray,suspension lisinopril 40 mg tablet 60 mg PO DAILY@03/25/20 05/17/22 05/17/22 History multivitamin 1 tab PO DAILY 03/25/20 05/17/22 05/17/22 History aspirin 81 mg tablet,delayed 81 mg PO DAILY #30 tabs 03/27/20 05/17/22 05/17/22 Rx release (Enteric Coated Aspirin) omeprazole 20 mg capsule,delayed 20 mg PO DAILY #60 caps 03/27/20 05/17/22 05/17/22 Rx release hydralazine 100 mg tablet 100 mg PO TID 30 days #90 tabs 07/23/20 05/17/22 05/17/22 Rx ipratropium 20 mcg-albuterol 100 1 puff inhalation Q4H PRN Dyspnea 10/14/20 05/17/22 Unknown History mcg/actuation mist for inhalation (Combivent Respimat) empagliflozin 25 mg tablet 25 mg PO DAILY 04/13/21 05/17/22 05/17/22 History (Jardiance) ezetimibe 10 mg tablet 10 mg PO DAILY 04/13/21 05/17/22 05/17/22 History glipizide 10 mg tablet 10 mg PO BID@05,18 04/13/21 05/17/22 05/17/22 History insulin glargine 100 unit/mL 74 unit SUBCUT DAILY 04/13/21 05/17/22 05/17/22 History subcutaneous solution (Lantus U-100 Insulin) omega-3 fatty acids 1,000 mg 1,000 mg PO BID 04/13/21 05/17/22 05/17/22 History capsule (Fish Oil Concentrate) furosemide 40 mg tablet (Lasix) 40 mg PO DAILY 10/13/21 05/17/22 05/17/22 History tamsulosin 0.4 mg capsule 0.4 mg PO DAILY 11/11/21 05/17/22 05/17/22 History isosorbide mononitrate 30 mg 30 mg PO DAILY #90 tabs 11/30/21 05/17/22 05/17/22 Rx tablet,extended release 24 hr metoprolol tartrate 25 mg tablet 25 mg PO BID #180 tabs 11/30/21 05/17/22 05/17/22 Rx tiotropium 2.5 mcg-olodaterol 2.5 2 puff inhalation DAILY #4 grams 01/13/22 05/17/22 05/17/22 Rx mcg/actuation mist for inhalation (Stiolto Respimat) metolazone 2.5 mg tablet 2.5 mg PO DAILY #90 tabs 03/16/22 05/17/22 05/17/22 Rx ciprofloxacin 0.3 %-dexamethasone 4 drp otic (ear) BID 04/14/22 05/17/22 Unknown History 0.1 % ear drops,suspension cetirizine 10 mg tablet 10 mg PO DAILY PRN Allergy Symptoms 05/17/22 05/17/22 Unknown History clotrimazole 1 % topical cream 1 applic topical DAILY PRN Rash 05/17/22 05/17/22 Unknown History metformin 500 mg tablet,extended 500 mg PO BID 05/17/22 05/17/22 05/17/22 History release 24 hr psyllium husk (aspartame) 3.4 3.4 g PO DAILY 05/17/22 05/17/22 05/16/22 History gram/5.8 gram oral powder Allergies Allergy/AdvReac Type Severity Reaction Status Date / Time No Known Allergies Allergy Verified 05/17/22 13:43 Current Medications Generic Name Dose Route Start Last Admin Trade Name Carlyle PRN Reason Stop Dose Admin Aspirin 81 mg 05/18/22 09:00 05/18/22 08:46 Aspirin 81 Mg Ec Tablet PO 81 mg DAILY DANIELA Administration Ezetimibe 10 mg 05/18/22 09:00 05/18/22 08:46 Ezetimibe 10 Mg Tablet PO 10 mg DAILY DANIELA Administration Hydralazine HCl 25 mg 05/17/22 21:00 05/18/22 08:46 Hydralazine 50 Mg Tablet PO 25 mg TID DANIELA Administration Sodium Chloride 1,000 mls @ 50 mls/hr 05/17/22 18:00 05/17/22 18:18 Sodium Chloride 0.9% IV 05/18/22 13:59 50 mls/hr .Q20H DANIELA Administration Insulin Glargine 15 unit 05/18/22 09:00 05/18/22 08:47 Insulin Glargine 100 Units/1 Ml SUBCUT 15 unit DAILY DANIELA Administration Insulin Human Lispro 0 unit 05/17/22 21:00 05/17/22 21:54 Insulin Lispro 100 Unit/1 Ml SUBCUT Not Given BEDTIME [facility] Protocol Insulin Human Lispro 0 unit 05/17/22 18:00 05/18/22 12:40 Insulin Lispro 100 Unit/1 Ml SUBCUT 4 unit TIDWM DANIELA Administration Protocol Isosorbide Mononitrate 30 mg 05/18/22 09:00 05/18/22 08:46 Isosorbide Mononitrate Er 30 Mg Tablet PO 30 mg DAILY DANIELA Administration Metoprolol Tartrate 25 mg 05/17/22 21:00 05/18/22 08:59 Metoprolol Tartrate 25 Mg Tablet PO 25 mg BID@0900,2100 [facility] Administration Neomycin/Polymyxin/Bacitracin 1 applic 05/18/22 09:00 05/18/22 12:41 Kggftber-Zuua-Nnkmdgkcfy Oint 28 Gm TOPICAL 1 applic DAILY DANIELA Administration Pantoprazole Sodium 40 mg 05/18/22 09:00 05/18/22 08:[address] 40 Mg Tablet PO 40 mg DAILY DANIELA Administration Psyllium Hydrophilic Mucilloid 1 packet 05/18/22 09:00 05/18/22 08:45 Psyllium Powder Pkt PO 1 packet DAILY DANIELA Administration Tamsulosin HCl 0.4 mg 05/18/22 09:00 05/18/22 08:46 Tamsulosin 0.4 Mg Capsule PO 0.4 mg DAILY DANIELA Administration PFSH Acute PFSH: Medical History (Updated 05/18/22 @ 13:08 by Marielena Billings MD) Atherosclerosis of coronary artery of tribal heart without angina pectoris Saenz's palsy L side Benign prostate hyperplasia Carotid stenosis Chronic kidney disease Diabetes mellitus Diastolic dysfunction Grade 1 History of echocardiogram 03/2020 History of Holter monitoring 04/2020 History of left heart catheterization 10/2021 20% LM, 50-60% proximal RCA, 70% PDA branch, mild diffuse disease other vessels. LVEDP 20 mmHg. Had Right Heart Cath also and showed mean PAP 34 mmHg and PCWP 21 mmHg. History of PFTs 10/2020 Hypertension ALANNAH (obstructive sleep apnea) HS CPAP Recurrent umbilical hernia Seasonal allergies Surgical History (Updated 05/17/22 @ 17:33 by Peggy Ardon MD) History of cataract extraction History of colonoscopy History of eye surgery History of placement of ear tubes History of total right hip arthroplasty History of umbilical hernia repair Hx of oral surgery Status post surgical removal of nail matrix of toe Family History Father Stroke Sister Cancer Diabetes Brother Aneurysm Denies family history of CAD (coronary artery disease) Clotting disorder Dementia Chronic kidney disease (CKD) Suicide Anesthesia complication Bleeding disorder Lung disease Social History (Updated 05/17/22 @ 16:57 by Peggy Ardon MD) Smoking and tobacco status: former smoker Quit status (tobacco): has quit using tobacco Year quit tobacco: 1986 Former quit date comment: Hx of 1 PPD x 15 Years Second hand smoke exposure: No Alcohol intake: never Substance/Drug Use: never Lives independently: Yes Household members: spouse Marital status: service: Yes Current occupational status: retired and disabled Current gender identity: Male Vitals/I&O/Wt Last Vital Signs Temp 98.3 F 05/18/22 08:00 Pulse 80 05/18/22 12:00 Resp 16 05/18/22 08:34 BP 112/62 05/18/22 12:00 Pulse Ox 96 05/18/22 12:00 O2 Del Method 05/18/22 08:34 05/17/22 05/18/22 05/18/22 22:59 06:59 14:59 Intake Total 360 / 360 Balance 360 / 360 Weight last 48 hrs Weight 118.586 kg Weight 113.398 kg Weight 113.398 kg Physical Exam Narrative: obese man in bed sititng up. BP low heent- nc/at, eomi, anicteric neck supple lungs clear heart reg abd soft, nt, nd, +bs ext + b/l edema Neuro- a,a, o x 3, stocking glove neuropathy Data 05/18/22 01:30 05/18/22 01:30 A&P Assessment and plan (1) Acute kidney injury: 71 yr old man 1. DM- hold metformin, glipizide, jardiance, and dec insulin w/ hypoglycemia 1b. hypoglycemia from REBECA and on insulin, glipizide and metformin 2. Inc AGMA- on jardiance- urine ketones negative- less likely euglycemic DKA. check serum acetone. check lactate, can get lactic acidosis from metformin in REBECA -give bicarb -anion gap is improving 3. CKD stage 3 -likely DM. However no significant proteinuria. can also be from ALANNAH, HTN, and /or obesity 4. REBECA- likely from hypotension and jorge-i -cr improving to baseline cKD stage 3 -hold hydralazine for now 5. hyperkalemia from REBECA in DM. rx medically and monitor 6. hyperphosphatemia- monitor on low phos diet for now. check pth seen and examin ed w/ RN- telehealth visit informed consent for telehealth obtained from pt time spent >50 min Plan see above Consult Attestations Medical Necessity Statement: rebeca, hyperkalemia, met acidosis Time Spent in Patient Care: Greater than 35 minutes (>than 50% of time spent in counselling and/or direct pt care on unit). Coding Level of Care Code Acute Code for [facility] Diagnoses Acute kidney injury N17.9
[2022-05-18 14:01] LABS: Calcium 8.8 mg/dL (8.5-10.5); Carbon Dioxide 16 mmol/L (22-29); Chloride 108 mmol/L (98-107); Glucose 188 mg/dL (65-115); Osmolality Calculated 313 mOsm/kg (285-295); Sodium 136 mmol/L (136-145)
[2022-05-18 14:02] LABS: Blood Urea Nitrogen 85 mg/dL (8-23)
--- NOTE | 2022-05-18 14:03 | PC.NURSE ---
Notified Dr. Billings of a Critical BUN 85
--- NOTE | 2022-05-18 14:07 | USR_ITS ---
PROCEDURE INFORMATION: Exam: US Retroperitoneal; Complete; Kidneys and Bladder Exam date and time: 05/18/2022 4:06 PM Age: 71 years old Clinical indication: Abnormal findings; Abnormal lab test; Abnormal kidney function lab tests; Additional info: Geraldo TECHNIQUE: Imaging protocol: Real-time ultrasound of the retroperitoneum with image documentation. Complete exam focused on the kidneys and bladder. COMPARISON: [place] [id number] 07/21/2021 9:35 AM FINDINGS: Right kidney: Right kidney measures 12.1 cm in length. No stones. No hydronephrosis. Left kidney: Left kidney measures 12.1 cm in length. No stones. No hydronephrosis. Urinary bladder: Unremarkable. US/US renal BI* [id number] IMPRESSION: Unremarkable kidneys and bladder.
[2022-05-18 14:44] LABS: Uric Acid 9.7 mg/dL (3.4-7.0)
[2022-05-18] MEDS: lactated ringers 500 ML 999 ML IV (14:55)
[2022-05-18] MEDS: insulin regular-human 10 UNIT in SYRINGE 1 EACH IVP (14:56)
[2022-05-18] MEDS: calcium gluconate 0.9% NaCL 1 GM/50 ML PREMIX IV (14:58)
[2022-05-18] MEDS: sodium polystyrene sulfonate 15 gm/60 mL Btl 30 GM PO (14:59)
[2022-05-18 15:00] LABS: Lactate (Lactic Acid level) 1.4 mmol/L (0.5-2.2)
[2022-05-18] MEDS: lactated ringers 1,000 ML 125 ML IV (15:00)
[2022-05-18 15:17] LABS: Hepatitis C Virus Antibody Non-Reactive (Nonreactive)
[2022-05-18 16:20] LABS: ABG PCO2 30.4 mmHg (35-45); ABG PH Result 7.34 (7.35-7.45); Alveolar-Arterial Oxygen Gradi 2.9 mmHg (5-10); Arterial Blood Gas Hematocrit 30.7 % (42-52); Base Excess ABG -8.3 mmol/L (-2.0-2.0); Blood Gas Allen Test Pos; Blood Gas Operator Identificat GD; Blood Gas Sample Site Radial, left; Blood Gas Sample Type Arterial; Carboxyhemoglobin 0.9 %THgb (0.4-20.1); HCO3 ABG 16.5 mmol/L (22-26); HGB O2 Sat 95.5 % (95-100); Ionized Calcium Level - ABG 1.2 mmol/L (1.1-1.4); Methemoglobin 0.7 % (0.4-1.5); Oxygen Device ROOM AIR; PO2 ABG 89.7 mmHg (80.0-100.0); Potassium Level - ABG 5.8 mmol/L (3.5-5.0)
[2022-05-18 17:37] LABS: Glucose Point of Care 123 mg/dL (70-110)
[2022-05-18 18:31] LABS: Potassium, Radom Urine 28 mmol/L; Urine Random Chloride 40 mmol/L; Urine Random Sodium 51 mmol/L; Urine Random Sodium 52 mmol/L
[2022-05-18 21:01] LABS: Anion Gap 16.8 (5-19); Blood Urea Nitrogen 80 mg/dL (8-23); Calcium 8.7 mg/dL (8.5-10.5); Carbon Dioxide 16 mmol/L (22-29); Chloride 110 mmol/L (98-107); Glucose 158 mg/dL (65-115); Osmolality Calculated 311 mOsm/kg (285-295); Potassium 5.8 mmol/L (3.5-5.1); Sodium 137 mmol/L (136-145)
[2022-05-18 21:20] LABS: Glucose Point of Care 176 mg/dL (70-110)
[2022-05-19] VITALS (9 sets, daily range): BP systolic 116–126; BP diastolic 60–74; PULSE 67–87; RESP 14–18; TEMP 36.6–37.3; O2SAT 91–96
[2022-05-19] MEDS: lactated ringers 1,000 ML 125 ML IV ×2 (00:12→09:01)
[2022-05-19 02:17] LABS: Basophils # 0.1 10^3/uL (0.0-0.1); Basophils % 0.9 %; Eosinophils # 0.1 10^3/uL (0.0-0.8); Eosinophils % 1.6 %; Hematocrit 28.1 % (42.0-52.0); Lymphocytes # 1.5 10^3/uL (0.8-4.8); Lymphocytes % 21.9 %; Mean Corpuscular Hemoglobin 29.3 pg (28.0-34.0); Mean Corpuscular Volume 91.5 fl (80-94); Mean Platelet Volume 10.4 fL (7.4-10.4); Monocytes # 0.6 10^3/uL (0.2-0.9); Monocytes % 9.1 %; Neutrophils # 4.56 10^3/uL (1.8-7.7); Neutrophils % 66.2 %; Nucleated Red Blood Cells % 0 %; Platelet Count 136 10^3/cmm (130-400); Red Blood Count 3.07 10^6/uL (4.1-5.3); Red Cell Distribution Width 12.7 % (12.1-15.1); White Blood Count 6.9 10^3/uL (4.0-10.0)
[2022-05-19 02:37] LABS: Alanine Aminotransferase 22 U/L (0-41); Albumin Level 3.5 g/dL (3.5-5.2); Alkaline Phosphatase 55 U/L (40-130); Anion Gap 16.2 (5-19); Aspartate Amino Transferase 17 U/L (0-40); Blood Urea Nitrogen 74 mg/dL (8-23); Calcium 8.6 mg/dL (8.5-10.5); Carbon Dioxide 17 mmol/L (22-29); Chloride 110 mmol/L (98-107); Ferritin 197 ng/mL (30-400); Globulin 2.7 g/dL (1.3-4.6); Glucose 123 mg/dL (65-115); Iron 97 ug/dL (59-158); Osmolality Calculated 309 mOsm/kg (285-295); Percent Saturation 38.4 % (20-50); Phosphorus 3.8 mg/dL (2.5-4.5); Potassium 5.2 mmol/L (3.5-5.1); Sodium 138 mmol/L (136-145); Total Bilirubin 0.2 mg/dL (0.15-1.2); Total Iron Binding Capacity 252 mcg/dl; Total Protein 6.2 g/dL (6.6-8.7); Unsaturated Iron Binding 155 ug/dL (112-347)
[2022-05-19 02:38] LABS: Anion Gap 14.2 (5-19); Blood Urea Nitrogen 73 mg/dL (8-23); Calcium 8.6 mg/dL (8.5-10.5); Calcium 8.7 mg/dL (8.5-10.5); Carbon Dioxide 17 mmol/L (22-29); Chloride 112 mmol/L (98-107); Glucose 125 mg/dL (65-115); Magnesium 1.6 mg/dL (1.7-2.3); Osmolality Calculated 309 mOsm/kg (285-295); Potassium 5.2 mmol/L (3.5-5.1); Sodium 138 mmol/L (136-145)
[2022-05-19 02:43] LABS: Parathyroid Hormone 84.3 pg/mL (15-65)
[2022-05-19 02:51] LABS: 25 Hydroxy Vitamin D 23 ng/mL (30-100)
[2022-05-19 06:41] LABS: Glucose Point of Care 106 mg/dL (70-110)
--- NOTE | 2022-05-19 07:28 | PM.PN ---
Subjective Subjective: feels better. has BM's. no n/v/f/c/kapadia/sob/itching. Medications: Reviewed: Yes Medication Review Details: Current Medications Acetaminophen (Acetaminophen 325 Mg Tablet) 650 mg PO Q6H PRN PRN Reason: Mild/Mod Pain Or Temp >/= 101 Albuterol/Ipratropium (Ipratropium-Albuterol 3 Ml Neb) 3 ml INHALATION Q6H PRN PRN Reason: SHORTNESS OF BREATH Aspirin (Aspirin 81 Mg Ec Tablet) 81 mg PO DAILY [facility] Last Admin: 05/18/22 08:46 Dose: 81 mg Bisacodyl (Bisacodyl 5 Mg Tablet) 10 mg PO DAILY PRN; Protocol PRN Reason: Constipation (see protocol) Dextrose (Dextrose 50% Syringe 50 Ml) 25 ml IVP ONCE PRN; Protocol PRN Reason: hypoglycemia protocol Dextrose (Dextrose 50% Syringe 50 Ml) 50 ml IVP PRN PRN; Protocol PRN Reason: hypoglycemia protocol Ezetimibe (Ezetimibe 10 Mg Tablet) 10 mg PO DAILY [facility] Last Admin: 05/18/22 08:46 Dose: 10 mg Glucagon (Glucagon 1 Mg/Ml Inj 1 Ml) 1 mg IM ONCE PRN; Protocol PRN Reason: Adult Acute Hypoglycemia Prot. Dextrose (D5w) 500 mls @ 100 mls/hr IV ONCE PRN; Protocol PRN Reason: Adult Acute Hypoglycemia Prot Lactated Ringer's (Lactated Ringers) 1,000 mls @ 125 mls/hr IV .Q8H [facility] Last Admin: 05/19/22 00:12 Dose: 125 mls/hr Insulin Glargine (Insulin Glargine 100 Units/1 Ml) 15 unit SUBCUT DAILY [facility] Last Admin: 05/18/22 08:47 Dose: 15 unit Insulin Human Lispro (Insulin Lispro 100 Unit/1 Ml) 0 unit SUBCUT BEDTIME [facility]; Protocol Last Admin: 05/18/22 21:34 Dose: 1 unit Insulin Human Lispro (Insulin Lispro 100 Unit/1 Ml) 0 unit SUBCUT TIDWM [facility]; Protocol Last Admin: 05/19/22 07:18 Dose: Not Given Isosorbide Mononitrate (Isosorbide Mononitrate Er 30 Mg Tablet) 30 mg PO DAILY [facility] Last Admin: 05/18/22 08:46 Dose: 30 mg Metoprolol Tartrate (Metoprolol Tartrate 25 Mg Tablet) 25 mg PO BID@0900,2100 [facility] Last Admin: 05/18/22 20:04 Dose: 25 mg Neomycin/Polymyxin/Bacitracin (Grpygdlg-Ufqd-Euahgvxaqt Oint 28 Gm) 1 applic TOPICAL DAILY [facility] Last Admin: 05/18/22 12:41 Dose: 1 applic Nitroglycerin (Nitroglycerin 0.4 Mg Sublingual Tablet) 0.4 mg SUBLINGUAL Q5M PRN PRN Reason: CHEST PAIN Ondansetron HCl (Ondansetron 2 Mg/Ml Sdv 2 Ml) 4 mg IVP Q8H PRN PRN Reason: vomiting, or N/V if npo Pantoprazole Sodium (Pantoprazole Dr 40 Mg Tablet) 40 mg PO DAILY [facility] Last Admin: 05/18/22 08:46 Dose: 40 mg Psyllium Hydrophilic Mucilloid (Psyllium Powder Pkt) 1 packet PO DAILY [facility] Last Admin: 05/18/22 08:45 Dose: 1 packet Tamsulosin HCl (Tamsulosin 0.4 Mg Capsule) 0.4 mg PO DAILY [facility] Last Admin: 05/18/22 08:46 Dose: 0.4 mg Vitals/I&O/Wt Last Vital Signs Temp 97.8 F 05/19/22 07:26 Pulse 69 05/19/22 07:26 Resp 16 05/19/22 07:26 BP 126/61 05/19/22 07:26 Pulse Ox 91 05/19/22 07:26 O2 Del Method 05/19/22 07:26 05/18/22 05/19/22 05/19/22 22:59 06:59 14:59 Intake Total 2440 / 2800 1000 / 3800 Output Total 975 / 1500 Balance 2440 / 2275 25 / 2300 Weight last 48 hrs Weight 121.308 kg Weight 118.586 kg Weight 113.398 kg Weight 113.398 kg Physical Exam Narrative: obese man in bed comfortable, NARD heent- nc/at, eomi, anicteric neck supple lungs clear heart reg abd soft, nt, nd, +bs ext +1+ b/l edema Neuro- a,a, o x 3, stocking glove neuropathy Data 05/19/22 01:50 05/19/22 01:50 A&P Assessment and plan (1) Acute kidney injury: 71 yr old man 1. DM- hold metformin, glipizide, jardiance, and dec insulin w/ hypoglycemia 2. hypoglycemia from REBECA and on insulin, glipizide and metformin -sugars improved 3. Inc AGMA- on jardiance- urine ketones negative- less likely euglycemic DKA. check serum acetone. check lactate, can get lactic acidosis from metformin in REBECA -give bicarb -anion gap has improved to 11 4. CKD stage 3 -likely DM. However no significant proteinuria. can also be from ALANNAH, HTN, and /or obesity 4. REBECA- likely from hypotension and kirsty-i. Was likely prerenal, hemodynamic effect -cr improving to baseline cKD stage 3 -hold hydralazine for now -cr back to 1.4 mg/dl from 2 mg/dl 5. hyperkalemia from REBECA in DM. K improved from 6 to 5.2- w/ medical management. low k diet and monitor 6. hyperphosphatemia- improved w/ improved REBECA -pth 84- can repeat in a few months. should improve as CR improved -vit d 23- can give low dose po repletion 7. replete magnesium 8. uric acid of 9.7- repeat. likely needs allopurinol 9. anemia- iron sat 38%, ferritin 197- per medicine. cr is 1.4 seen and examined w/ RN- telehealth visit informed consent for telehealth obtained from pt time spent 30 min Plan see above Attestations Medical Necessity Statement*: per medicine. rebeca and met acidosis improving Time Spent in Patient Care: 16 - 35 minutes (>than 50% of time spent in counselling and/or direct pt care on unit). Coding Level of Care Code Acute Code for [facility] Diagnoses Acute kidney injury N17.9
[2022-05-19] MEDS: metoprolol tartrate 25 mg Tablet PO (07:59)
[2022-05-19] MEDS: aspirin 81 mg EC Tablet PO (07:59)
[2022-05-19] MEDS: pantoprazole DR 40 mg Tablet PO (07:59)
[2022-05-19] MEDS: tamsulosin 0.4 mg Capsule PO (07:59)
[2022-05-19] MEDS: psyllium powder Pkt 1 PACKET PO (07:59)
[2022-05-19] MEDS: ezetimibe 10 mg Tablet PO (07:59)
[2022-05-19] MEDS: isosorbide mononitrate ER 30 mg Tablet PO (07:59)
[2022-05-19] MEDS: insulin glargine 100 units/1 mL 15 UNIT SUBCUT (08:00)
[2022-05-19] MEDS: neomycin-poly-bacitracin oint 28 gm 1 APPLIC TOPICAL (08:03)
[2022-05-19 08:44] LABS: Uric Acid 8.8 mg/dL (3.4-7.0)
[2022-05-19 11:57] LABS: Glucose Point of Care 253 mg/dL (70-110)
--- NOTE | 2022-05-19 12:08 | PM.DCS ---
Discharge Providers Date of Admission: 05/17/22 14:03 Date of Discharge: May 19, 2022 Attending Provider at Admission: Peggy Ardon MD Attending Provider at Discharge: Marielena Billings MD Primary Care Provider: Lauren Proctor MD Diagnoses at Discharge Discharge Diagnosis (1) Acute kidney injury: Status: Acute Reason for Visit Reason for Visit: ELEVATED TROPONIN/ HYPOTENSIVE Brief History: As per Dr. Ardon Mei Mathews is a 71 year old male who presented to [facility].? Mr. Montoya was on his way to Dr. Fierro's office for eye surgery today.? Him and his left early to try to avoid the weather.? He took his usual medications which included Lantus, metformin, glipizide and Jardiance along with metoprolol, Lasix, hydralazine, metolazone, lisinopril, and isosorbide.? He did not eat breakfast today.? Original plan had been for him and his to get something to eat at [facility] but they did not make it.? Mr. Mathews started acting confused on the drive into [place].? He was not making sense.? Records from [facility] indicates that he was not cooperative initially.? In the car he had difficulty getting a water bottle into his mouth and was not responding like his usual self.? His went immediately to the closest ER which was at [place].? Blood sugar there was found to be 27.? Patient was given some orange juice and other management for blood sugar.? There is an indication that blood pressures in the 60s over 40s that responded to IV fluid bolus.? Work-up subsequently revealed an elevated troponin.? Patient has a history of cardiac catheterization in October 2021 in which she was found to have a 20% left main, 50 to 60% proximal RCA, and 70% PDA lesion with mild diffuse disease otherwise.? At that point in time Dr. Harmon added metoprolol and isosorbide to his medication regimen for medical management.? Given this history and the elevated troponin without any acute ST segment changes noted on EKG, the case was discussed with cardiology who recommended transfer to [facility].? Patient was seen in the emergency room here and he reported some chest tightness may be a 1-2 out of 10 that has been present today.? No other episodes previously.? He has had similar presentation with alteration of mental status in the past that was also found to be associated with hypoglycemia.? Repeat troponin here with a new baseline and 2-hour value revealed a negative delta at -4.71.? Twelve-lead EKG did not show any acute ST segment changes with sinus rhythm at 78 bpm.? Given prior history and events of today he is being admitted for further observation and evaluation as indicated. Hospital Course Hospital Course Patient was admitted for hypoglycemic episode with blood sugar as low as being 25. He was also advised to get metabolic acidosis most likely secondary to renal dysfunction. He had an REBECA on admission on top of his CKD. He says he follows with Dr. Galicia every year however he has retired and now he is seeing a new physician in his place. He states his appointments are typically yearly. He takes 74 units of Lantus at home and glipizide. At discharge we have held Lantus and glipizide. We will reduce his Lantus to 15 units daily. I have given patient instructions to reduce it to 10 units if his fasting blood sugars are below 110. He also had episodes of hypotension before admission. I have held his blood pressure medications at this time. We will continue to monitor however. Advised him to keep an eye on his blood pressure and to follow-up with his primary care doctor to rule out them gradually and if needed. Patient was started on sodium bicarbonate tablets 650 twice daily. He also had hyperkalemia during hospital stay which was treated. He has been advised on low potassium diet. Patient to follow-up much more closely with nephrology. He will get repeat labs to do as an outpatient. Blood sugar medications were adjusted. Patient also described mild chest tightness during his initial hypoglycemic episode which resolved on its own once his sugar was better. He had a cardiac angiogram done 6 months ago in October 2021 which showed 20% left main and 50 to 60% proximal RCA and 70% PDA lesion with mild diffuse disease otherwise. At that time Imdur was added and metoprolol was added. Decision was made to medically manage the patient. Patient has an upcoming appointment in July. I have advised him to follow-up with cardiology as an outpatient. We did discuss the possibility of doing a stress test in the hospital however patient has not had any chest pain, chest tightness and has been asymptomatic from cardiac standpoint. His troponins did not rise very high either and delta troponin was negative. EKG did not show any ischemic changes. Discussed with him and his in which shared decision making it was decided to defer the stress test for now as patient had no issues. I have advised him to come back to the hospital should he have any more chest tightness or cardiac symptoms. Patient and both demonstrated understanding. We will discharge patient home today in stable condition. All questions were answered. Both and were given ample time to ask questions and everything was explained in as much detail as possible. Physical Exam Narrative: obese man in bed comfortable, NARD heent- nc/at, eomi, anicteric neck supple lungs clear heart reg abd soft, nt, nd, +bs ext +1+ b/l edema Neuro- a,a, o x 3, stocking glove neuropathy Discharge Data Studies Completed and Pending Completed Studies During Hospitalization Category Date Time Status CV. echo wo/w contrast [id number] Routine Ultrasound 05/17/22 17:09 Completed US renal BI* [id number] Routine Ultrasound 05/18/22 14:07 Completed Pending at discharge Category Date Time Status Comprehensive Metabolic Panel AM LABS Lab 05/20/22 04:00 Ordered Comprehensive Metabolic Panel AM LABS Lab 05/21/22 04:00 Ordered Magnesium AM LABS Lab 05/20/22 04:00 Ordered Magnesium AM LABS Lab 05/21/22 04:00 Ordered Magnesium AM LABS Lab 05/22/22 04:00 Ordered Phosphorus AM LABS Lab 05/20/22 04:00 Ordered Phosphorus AM LABS Lab 05/21/22 04:00 Ordered Uric Acid AM LABS Lab 05/20/22 04:00 Ordered Radiology Impressions Renal Ultrasound 05/18/22 14:07 IMPRESSION: Unremarkable kidneys and bladder. Laboratory Results WBC 6.9 10^3/uL (4.0-10.0) 05/19/22 01:50 RBC 3.07 10^6/uL (4.1-5.3) L 05/19/22 01:50 Hgb 9.0 g/dL (11.7-16.6) L 05/19/22 01:50 Hct 28.1 % (42.0-52.0) L 05/19/22 01:50 MCV 91.5 fl (80-94) 05/19/22 01:50 MCH 29.3 pg (28.0-34.0) 05/19/22 01:50 MCHC 32.0 g/dL (30.0-36.0) 05/19/22 01:50 RDW 12.7 % (12.1-15.1) 05/19/22 01:50 Plt Count 136 10^3/cmm (130-400) 05/19/22 01:50 MPV 10.4 fL (7.4-10.4) 05/19/22 01:50 Neut % (Auto) 66.2 % 05/19/22 01:50 Lymph % (Auto) 21.9 % 05/19/22 01:50 Dillon % (Auto) 9.1 % 05/19/22 01:50 Eos % (Auto) 1.6 % 05/19/22 01:50 Baso % (Auto) 0.9 % 05/19/22 01:50 Neut # (Auto) 4.56 10^3/uL (1.8-7.7) 05/19/22 01:50 Lymph # (Auto) 1.5 10^3/uL (0.8-4.8) 05/19/22 01:50 Dillon # (Auto) 0.6 10^3/uL (0.2-0.9) 05/19/22 01:50 Eos # (Auto) 0.1 10^3/uL (0.0-0.8) 05/19/22 01:50 Baso # (Auto) 0.1 10^3/uL (0.0-0.1) 05/19/22 01:50 Nucleated RBC % (auto) 0 % 05/19/22 01:50 Nucleated RBCs # 0.0 /100WBC 05/19/22 01:50 Specimen Type Arterial 05/18/22 16:00 Sample Site Radial, left 05/18/22 16:00 ABG pH 7.34 (7.35-7.45) L 05/18/22 16:00 ABG pCO2 30.4 mmHg (35-45) L 05/18/22 16:00 ABG pO2 89.7 mmHg (80.0-100.0) 05/18/22 16:00 ABG HCO3 16.5 mmol/L (22-26) L 05/18/22 16:00 ABG O2 Saturation 97.0 05/18/22 16:00 ABG Base Excess -8.3 mmol/L (-2.0-2.0) L 05/18/22 16:00 Davidson Test Pos 05/18/22 16:00 A-a O2 Gradient 2.9 mmHg (5-10) L 05/18/22 16:00 Hematocrit 30.7 % (42-52) L 05/18/22 16:00 Hgb O2 Saturation 95.5 % (95-100) 05/18/22 16:00 Carboxyhemoglobin 0.9 %THgb (0.4-20.1) 05/18/22 16:00 Methemoglobin 0.7 % (0.4-1.5) 05/18/22 16:00 Total Hemoglobin 10.0 g/dL (14-18) L 05/18/22 16:00 Sodium 140.0 mmol/L (131-143) 05/18/22 16:00 Potassium 5.8 mmol/L (3.5-5.0) H 05/18/22 16:00 Glucose 132.0 mg/dL (70-115) H 05/18/22 16:00 Ionized Calcium 1.2 mmol/L (1.1-1.4) 05/18/22 16:00 O2 Delivery Device Room air 05/18/22 16:00 Chief Creative Officer ID [id number] 05/18/22 16:00 Sodium 138 mmol/L (136-145) 05/19/22 01:50 Sodium 138 mmol/L (136-145) 05/19/22 01:50 Potassium 5.2 mmol/L (3.5-5.1) H 05/19/22 01:50 Potassium 5.2 mmol/L (3.5-5.1) H 05/19/22 01:50 Chloride 110 mmol/L (98-107) H 05/19/22 01:50 Chloride 112 mmol/L (98-107) H 05/19/22 01:50 Carbon Dioxide 17 mmol/L (22-29) L 05/19/22 01:50 Carbon Dioxide 17 mmol/L (22-29) L 05/19/22 01:50 Anion Gap 14.2 (5-19) 05/19/22 01:50 Anion Gap 16.2 (5-19) 05/19/22 01:50 BUN 73 mg/dL (8-23) H 05/19/22 01:50 BUN 74 mg/dL (8-23) H 05/19/22 01:50 Creatinine 1.4 mg/dL (0.7-1.2) H 05/19/22 01:50 Creatinine 1.4 mg/dL (0.7-1.2) H 05/19/22 01:50 GFR Calculation Not Reportable 05/19/22 01:50 GFR Calculation Not Reportable 05/19/22 01:50 Glucose 123 mg/dL (65-115) H 05/19/22 01:50 Glucose 125 mg/dL (65-115) H 05/19/22 01:50 POC Glucose 253 mg/dL (70-110) H 05/19/22 11:51 Estimat Average Glucose 171 05/18/22 01:30 Hemoglobin A1c 7.6 % (4.0-6.0) H 05/18/22 01:30 Calculated Osmolality 309 mOsm/kg (285-295) H 05/19/22 01:50 Calculated Osmolality 309 mOsm/kg (285-295) H 05/19/22 01:50 Lactate 1.4 mmol/L (0.5-2.2) 05/18/22 14:33 Uric Acid 8.8 mg/dL (3.4-7.0) H 05/19/22 01:50 Calcium 8.6 mg/dL (8.5-10.5) 05/19/22 01:50 Calcium 8.6 mg/dL (8.5-10.5) 05/19/22 01:50 Phosphorus 3.8 mg/dL (2.5-4.5) 05/19/22 01:50 Magnesium 1.6 mg/dL (1.7-2.3) L 05/19/22 01:50 Iron 97 ug/dL (59-158) 05/19/22 01:50 TIBC 252 mcg/dl 05/19/22 01:50 % Saturation 38.4 % (20-50) 05/19/22 01:50 Unsat Iron Binding 155 ug/dL (112-347) 05/19/22 01:50 Ferritin 197 ng/mL (30-400) 05/19/22 01:50 Total Bilirubin 0.2 mg/dL (0.15-1.2) 05/19/22 01:50 AST 17 U/L (0-40) 05/19/22 01:50 ALT 22 U/L (0-41) 05/19/22 01:50 Alkaline Phosphatase 55 U/L (40-130) 05/19/22 01:50 Troponin T Gen 5 ng/L 67 ng/L (0-15) H 05/18/22 01:30 Troponin T Baseline 74 ng/L (0-15) H 05/17/22 12:05 Troponin T 120 Minute 69.29 ng/L (0-15) H 05/17/22 14:00 Delta Troponin T -4.71 ABS# (0-10) L 05/17/22 14:00 Troponin T Hi Sens 6Hr 62.85 ng/L (0-15) H 05/17/22 18:21 Troponin T Hi Sens 6Hr Delta -11.15 ng/L (0-12) L 05/17/22 18:21 NT-Pro-B Natriuret Pep 245 pg/mL (0-125) H 05/18/22 01:30 Total Protein 6.2 g/dL (6.6-8.7) L 05/19/22 01:50 Albumin 3.5 g/dL (3.5-5.2) 05/19/22 01:50 Globulin 2.7 g/dL (1.3-4.6) 05/19/22 01:50 25-OH Vitamin D Total 23 ng/mL (30-100) L 05/19/22 01:50 PTH Intact 84.3 pg/mL (15-65) H 05/19/22 01:50 Calcium (PTH Intact) 8.7 mg/dL (8.5-10.5) 05/19/22 01:50 Urine Color Light yellow (Yellow) 05/17/22 20:01 Urine Appearance Clear (CLEAR) 05/17/22 20:01 Urine pH 5 (5-7) 05/17/22 20:01 Ur Specific [place] 1.015 (1.005-1.030) 05/17/22 20:01 Urine Protein Neg (Negative) 05/17/22 20:01 Urine Glucose (UA) 4+ (Normal) H 05/17/22 20:01 Urine Ketones Negative (Negative) 05/17/22 20:01 Urine Blood Neg (Negative) 05/17/22 20:01 Urine Nitrate Negative (Negative) 05/17/22 20:01 Urine Bilirubin Neg (Negative) 05/17/22 20:01 Urine Urobilinogen Norm mg/dL (Negative) 05/17/22 20:01 Ur Leukocyte Esterase Negative (Negative) 05/17/22 20:01 Ur Random Sodium 51 mmol/L 05/18/22 16:28 Ur Random Sodium 52 mmol/L 05/18/22 16:28 Ur Random Potassium 28 mmol/L 05/18/22 16:28 Ur Random Chloride 40 mmol/L 05/18/22 16:28 Hepatitis C Antibody Non-reactive (Nonreactive) 05/18/22 14:33 Vitals Last Vital Signs Temp 99.1 F 05/19/22 12:00 Pulse 67 05/19/22 12:00 Resp 16 05/19/22 12:00 BP 119/60 05/19/22 12:00 Pulse Ox 94 05/19/22 12:00 O2 Del Method 05/19/22 12:00 Discharge Plan Discharge Patient Disposition: Home Condition: Stable Prescriptions: New insulin glargine 100 unit/mL Solution 15 unit SUBCUT DAILY 30 Days Qty: 3 0RF sodium bicarbonate 650 mg tablet 650 mg PO BID 30 Days Qty: 60 0RF Continued Jardiance 25 mg tablet 25 mg PO DAILY ezetimibe 10 mg tablet 10 mg PO DAILY omega-3 fatty acids [Fish Oil Concentrate] 1,000 mg capsule 1,000 mg PO BID Combivent Respimat 20-100 mcg/actuation mist 1 puff inhalation Q4H PRN (Reason: Dyspnea) tamsulosin 0.4 mg capsule 0.4 mg PO DAILY ciprofloxacin-dexamethasone 0.3-0.1 % drops,suspension 4 drp otic (ear) BID metoprolol tartrate 25 mg tablet 25 mg PO BID Qty: 180 3RF isosorbide mononitrate 30 mg tablet extended release 24 hr 30 mg PO DAILY Qty: 90 3RF Stiolto Respimat 2.5-2.5 mcg/actuation mist 2 puff inhalation DAILY Qty: 4 4RF multivitamin Tablet 1 tab PO DAILY fluticasone propionate 50 mcg/actuation [place],Suspension 1 - 2 spray INTRANASAL DAILY PRN (Reason: Allergy Symptoms) cholecalciferol (vitamin D3) [Vitamin D3] 50 mcg (2,000 unit) Tablet 50 mcg PO DAILY@05 aspirin [Enteric Coated Aspirin] 81 mg tablet,delayed release (DR/EC) 81 mg PO DAILY Qty: 30 0RF omeprazole 20 mg capsule,delayed release(DR/EC) 20 mg PO DAILY Qty: 60 0RF cetirizine 10 mg Tablet 10 mg PO DAILY PRN (Reason: Allergy Symptoms) clotrimazole 1 % Cream 1 applic TOPICAL DAILY PRN (Reason: Rash) Held hydralazine 100 mg tablet 100 mg PO TID 30 Days Qty: 90 5RF Hold Instructions: see pcp furosemide [Lasix] 40 mg tablet 40 mg PO DAILY Hold Instructions: see pcp Discontinued metolazone 2.5 mg tablet 2.5 mg PO DAILY Qty: 90 0RF lisinopril 40 mg Tablet 60 mg PO DAILY@05 glipizide 10 mg tablet 10 mg PO BID@05,18 Rx Instructions: 2 tab qam and 1 tab qpm Lantus U-100 Insulin 100 unit/mL solution 74 unit SUBCUT DAILY metformin 500 mg Tablet Extended Release 24 Hr 500 mg PO BID psyllium husk (aspartame) 3.4 gram/5.8 gram Powder 3.4 g PO DAILY Discharge Orders: Discharge Order (Routine); Ordered 05/19/22 Ordered By: Marielena Billings Other Ambulatory Orders: Basic Metabolic Panel (Routine) Timeframe: 3 Days Facility: [facility] - Location: Lab - Main Lab Ordered By: Marielena Billings Referrals: Kai Galicia MD [Referring] - 4-7 days (FAXED FOR APPOINTMENT) Lauren Proctor MD [Primary Care Provider] - 4-7 days (FAXED FOR APPOINTMENT) Mallorie Harmon MD [Physician] - 2 weeks Discharge Diet: As Directed Discharge Activity: Resume usual activity Patient Instructions: Insulin Glargine (By injection), Sodium Bicarbonate (By mouth), Hyperkalemia (GEN), Opioid Safety Activity Restrictions/Additional Instructions: Please follow a low potassium diet. Follow up with nephrology as directed. Keep an eye on blood sugars and cut down lantus to 10 units daily if fasting sugars are starting to be below 110. Watch for hypoglycemia symptoms Should you develop any chest pain or shortness of breath, decreased urine output, please return to the ER immediately. We have stopped a lot of your blood sugar medications and held your blood pressure medications. Monitor your blood pressure at home and write down the values. Some blood pressure meds may be resumed after discussion with your primary care doctor. Discharge Attestations Time Spent in Discharge Care*: greater than 30 min Quality Metrics Clinical Quality Measures [ No reported AMI, CVA or VTE this stay] Coding Level of Care Code Acute Chg [facility] note Diagnoses Acute kidney injury N17.9
[2022-05-19] MEDS: insulin lispro 100 unit/1 mL SUBCUT (12:57)
== END 2022-05-19 13:49 | disposition home or self-care (01) ==
LOC: ER 13:01 → MEDSURG 14:03
PROVIDERS: Internal Medicine Nephrology; Admitting Provider Hospitalist; Emergency Provider Family Medicine; PCP Family Medicine; Visit Provider Internal Medicine
DX: N17.9 Acute kidney failure, unspecified (principal); E11.649 Type 2 diabetes mellitus with hypoglycemia without coma; E11.22 Type 2 diabetes mellitus with diabetic chronic kidney disease; I13.0 Hypertensive heart and chronic kidney disease with heart failure and stage 1 through stage 4 chronic kidney disease, or unspecified chronic kidney disease; N18.30 Chronic kidney disease, stage 3 unspecified; Z79.4 Long term (current) use of insulin; Z79.84 Long term (current) use of oral hypoglycemic drugs; G47.33 Obstructive sleep apnea (adult) (pediatric); E66.9 Obesity, unspecified; Z68.38 Body mass index [BMI] 38.0-38.9, adult; E87.5 Hyperkalemia; D63.1 Anemia in chronic kidney disease; N40.0 Benign prostatic hyperplasia without lower urinary tract symptoms; Z87.891 Personal history of nicotine dependence; E83.39 Other disorders of phosphorus metabolism; E87.29 Other acidosis
CPT/HCPCS: 36415; 36416; 36600; 76770; 80048; 80051; 80053; 81003; 82306; 82310; 82330; 82436; 82728; 82805; 82962; 83036; 83540; 83550; 83605; 83735; 83880; 83970; 84100; 84133; 84300; 84484; 84550; 85025; 86803; 93005; 93306; 94660; 96365; 96367; 96372; 99285; C8929; G0378; J0610; J1815; J3475; J7030; J7120; Q3014; Q9956

== ENCOUNTER → 2022-06-07 09:31 | Outpatient (BNVA) | payer OTHER, SELFPAY | PROVIDERS: PCP Family Medicine; Visit Provider Nurse Practitioner Family | DX: I10 Essential (primary) hypertension (principal); Z87.891 Personal history of nicotine dependence | CPT/HCPCS: 99213 ==

== ENCOUNTER → 2022-07-27 13:37 | Outpatient (BNVA) | payer OTHER, SELFPAY | PROVIDERS: PCP Family Medicine; Visit Provider Internal Medicine Cardiovascular Disease | DX: I25.10 Atherosclerotic heart disease of native coronary artery without angina pectoris (principal); E11.40 Type 2 diabetes mellitus with diabetic neuropathy, unspecified; Z79.4 Long term (current) use of insulin; G47.33 Obstructive sleep apnea (adult) (pediatric); G40.909 Epilepsy, unspecified, not intractable, without status epilepticus; R06.02 Shortness of breath; I13.10 Hypertensive heart and chronic kidney disease without heart failure, with stage 1 through stage 4 chronic kidney disease, or unspecified chronic kidney disease; E11.22 Type 2 diabetes mellitus with diabetic chronic kidney disease; N18.9 Chronic kidney disease, unspecified; Z87.891 Personal history of nicotine dependence | CPT/HCPCS: 99214 ==

== ENCOUNTER 2022-10-05 10:50 | Outpatient (RCR) | payer OTHER, SELFPAY | END 2022-10-15 23:59 | disposition home or self-care (01) | LOC: SOT 10:50 | PROVIDERS: Visit Provider Family Medicine | DX: M65.339 Trigger finger, unspecified middle finger (principal) | CPT/HCPCS: 97110; 97140; 97165; 97530 ==

== ENCOUNTER → 2022-10-13 08:08 | Outpatient (BNVA) | payer OTHER, SELFPAY | PROVIDERS: PCP Family Medicine; Visit Provider Internal Medicine Pulmonary Disease | DX: R06.02 Shortness of breath (principal); Z87.891 Personal history of nicotine dependence; I51.7 Cardiomegaly; I50.30 Unspecified diastolic (congestive) heart failure | CPT/HCPCS: 99214 ==

== ENCOUNTER 2022-10-16 06:00 | Outpatient (RCR) | payer OTHER, SELFPAY | END 2022-11-15 23:59 | disposition home or self-care (01) | LOC: SOT 06:00 | PROVIDERS: PCP Family Medicine; Visit Provider Family Medicine | DX: M65.339 Trigger finger, unspecified middle finger (principal) | CPT/HCPCS: 97022; 97035; 97110; 97140 ==

== ENCOUNTER 2022-11-16 06:00 | Outpatient (RCR) | payer OTHER, SELFPAY | END 2022-12-16 23:59 | disposition home or self-care (01) | LOC: SOT 06:00 | PROVIDERS: PCP Family Medicine; Visit Provider Family Medicine | DX: M65.339 Trigger finger, unspecified middle finger (principal) | CPT/HCPCS: 97022; 97140 ==

== ENCOUNTER → 2023-01-03 08:30 | Outpatient (BNVA) | payer OTHER, SELFPAY | PROVIDERS: PCP Family Medicine; Visit Provider Podiatrist Foot & Ankle Surgery | DX: B35.1 Tinea unguium (principal); Z79.4 Long term (current) use of insulin; I73.9 Peripheral vascular disease, unspecified; G62.9 Polyneuropathy, unspecified; M20.41 Other hammer toe(s) (acquired), right foot; M20.42 Other hammer toe(s) (acquired), left foot; E11.42 Type 2 diabetes mellitus with diabetic polyneuropathy; Z79.84 Long term (current) use of oral hypoglycemic drugs | CPT/HCPCS: 11721; 99203 ==

== ENCOUNTER → 2023-01-11 13:00 | Outpatient (BNVA) | payer OTHER, SELFPAY | PROVIDERS: PCP Family Medicine; Referring Provider Family Medicine; Visit Provider Student in an Organized Health Care Education/Training Program | DX: M65.332 Trigger finger, left middle finger; M65.321 Trigger finger, right index finger | CPT/HCPCS: 73130; 99204 ==

== ENCOUNTER 2023-01-17 09:42 | Outpatient (CLI) | payer OTHER, SELFPAY ==
[2023-01-17 10:43] LABS: Basophils # 0.1 10^3/uL (0.0-0.1); Basophils % 0.8 %; Eosinophils # 0.2 10^3/uL (0.0-0.8); Eosinophils % 1.8 %; Hematocrit 46.3 % (37-53); Lymphocytes # 2.4 10^3/uL (0.8-4.8); Lymphocytes % 28.1 %; Mean Corpuscular HGB Conc 34.6 g/dL (30-55); Mean Corpuscular Hemoglobin 30.8 pg (27-33); Mean Platelet Volume 9.9 fL (7.4-10.4); Monocytes # 0.7 10^3/uL (0.2-0.9); Monocytes % 8.8 %; Neutrophils # 5.09 10^3/uL (1.8-7.7); Neutrophils % 60.3 %; Nucleated Red Blood Cells % 0 %; Platelet Count 163 10^3/cmm (157-399); Red Cell Distribution Width 13.6 % (12.1-15.1); White Blood Count 8.44 10^3/uL (3.29-11.43)
[2023-01-17 10:45] LABS: Add Urine Microscopic? NO; Charge for UA Resulting for Rev
[2023-01-17 11:01] LABS: Alanine Aminotransferase 31 U/L (0-41); Albumin Level 4.6 g/dL (3.5-5.2); Alkaline Phosphatase 78 U/L (40-130); Anion Gap 16.9 (5-19); Aspartate Amino Transferase 22 U/L (0-40); Blood Urea Nitrogen 25 mg/dL (8-23); Calcium 9.8 mg/dL (8.5-10.5); Carbon Dioxide 25 mmol/L (22-29); Chloride 104 mmol/L (98-107); Globulin 2.9 g/dL (1.3-4.6); Glucose 195 mg/dL (65-115); Osmolality Calculated 304 mOsm/kg (285-295); Potassium 3.9 mmol/L (3.5-5.1); Sodium 142 mmol/L (136-145); Total Bilirubin 0.4 mg/dL (0.15-1.2); Total Protein 7.5 g/dL (6.6-8.7)
[2023-01-17 11:13] LABS: Bilirubin Urine Neg (Negative); Blood Urine Neg (Negative); Glucose Urine UA 4+ (Normal); Ketones Urine Negative (Negative); Leukocyte Esterase Urine Negative (Negative); Nitrate Urine Negative (Negative); Protein Urine Neg (Negative); Specific Gravity, Urine 1.005 (1.005-1.030); Urine Appearance Clear (CLEAR); Urine Color Yellow (Yellow); Urobilinogen Urine Norm (Negative); pH Urine 5 (5-7)
[2023-01-17 11:25] LABS: Estmated Average Glucose 148; Hemoglobin A1C 6.8 % (4.0-6.0)
== END 2023-01-17 09:43 | disposition home or self-care (01) ==
PROVIDERS: PCP Family Medicine; Visit Provider Student in an Organized Health Care Education/Training Program
DX: Z01.818 Encounter for other preprocedural examination (principal); Z79.899 Other long term (current) drug therapy
CPT/HCPCS: 36415; 80053; 81003; 83036; 85025

== ENCOUNTER 2023-02-03 05:48 | Day surgery (SDC) | payer OTHER, SELFPAY ==
[2023-02-03] VITALS (7 sets, daily range): BP systolic 107–128; BP diastolic 56–83; PULSE 62–68; RESP 16–18; TEMP 36.1–36.2; O2SAT 94–97
--- NOTE | 2023-02-03 06:23 | W.PM.OPSUD ---
Surgery/Procedure H&P Update DATE OF PROCEDURE: February 03, 2023 DATE H&P PERFORMED: 01/11/23 H&P UPDATE INFORMATION: I have reviewed H&P completed within last 30 days, I have examined patient prior to procedure and No changes to prior documentation PREOP DIAGNOSIS: Left middle finger trigger, right index finger trigger PRIMARY INDICATION FOR PROCEDURE: Left middle finger trigger, right index finger trigger PLANNED PROCEDURE: Operation Date: 02/03/23 07:30 Proposed Procedures p Middle Finger Trigger Finger Release(Left) - DO liam Brannon Cortisone Injection (Right Index)(Right) - Clifton Quiroga DO
[2023-02-03] MEDS: acetaminophen 1,000 MG/100 ML PIGGYBACK 400 MG IV (06:40)
[2023-02-03] MEDS: ketorolac 30 mg/mL INJ IVP (06:41)
[2023-02-03] MEDS: sodium chloride 0.9% 1,000 ML 30 ML IV (06:46)
--- NOTE | 2023-02-03 07:01 | ANES.PREANE2 ---
Pre-Anesthetic Assessment Height/Weight: Height 1.78 m Weight 0 g Temp Pulse Resp BP Pulse Ox O2 Del Method 97.2 F L 67 17 128/83 95 Room Air 02/03/23 06:22 02/03/23 06:22 02/03/23 06:22 02/03/23 06:22 02/03/23 06:22 02/03/23 06:29 Preop Diagnosis: Left middle finger trigger, right index finger trigger Operation Date: 02/03/23 07:30 Proposed Procedures p Middle Finger Trigger Finger Release(Left) - Clifton Junaid, DO s Cortisone Injection (Right Index)(Right) - Clifton Addison, DO Familial anesthetic complications: None Was Beta Tessa taken within 24 hours: N/A Was Clonidine taken within 24 hours: N/A Last intake: Intake Last Liquid Date 02/02/23 Last Liquid Time 23:30 Last Solid Date 02/02/23 Last Solid Time 18:00 Social No alcohol and No tobacco former smoker Exam alert, oriented x 3, clear to auscultation bilaterally and regular rate & rhythm Airway Mallampati: Class IV Dentition: false Pulmonary Chronic Obstructive Pulmonary Disease and Sleep Apnea CV/HEM Coronary Artery Disease (20% main, 60% RCA, 70% PDA, mod pulm HTN - medically treated, denies any chest pain) and Hypertension Chronic Renal Insufficiency GI Gastroesophageal Reflux Disease Metabolic Diabetes Mellitus Neuropsych Seizure and Transient Ischemic Attack carotid stenosis Anesthetic Plan ASA status: 4 Anesthesia: MAC Risk of > 500 ml blood loss (7ml/kg in children): No Medications/Allergies Home Medications Medication Instructions Recorded Confirmed Last Taken Type cholecalciferol (vitamin D3) 50 50 mcg PO DAILY@05 03/25/20 02/03/23 02/03/23 History mcg (2,000 unit) tablet (Vitamin D3) fluticasone propionate 50 1 - 2 spray intranasal DAILY PRN 03/25/20 02/03/23 02/03/23 History mcg/actuation nasal Allergy Symptoms spray,suspension multivitamin 1 tab PO DAILY 03/25/20 02/03/23 02/03/23 History aspirin 81 mg tablet,delayed 81 mg PO DAILY #30 tabs 03/27/20 02/03/23 01/29/23 Rx release (Enteric Coated Aspirin) omeprazole 20 mg capsule,delayed 20 mg PO DAILY #60 caps 1202/03/23 02/03/23 Rx release empagliflozin 25 mg tablet 25 mg PO DAILY 04/13/21 02/03/23 02/03/23 History (Jardiance) ezetimibe 10 mg tablet 10 mg PO DAILY 04/13/21 02/03/23 02/03/23 History omega-3 fatty acids 1,000 mg 1,000 mg PO BID 04/13/21 02/03/23 02/03/23 History capsule (Fish Oil Concentrate) tamsulosin 0.4 mg capsule 0.4 mg PO DAILY 11/11/21 02/03/23 02/03/23 History metformin 500 mg tablet 500 mg PO DAILY 06/07/22 02/03/23 02/01/23 History semaglutide 2 mg/dose (8 mg/3 mL) mg SUBCUT 07/27/22 01/26/23 01/21/23 History subcutaneous pen injector (Ozempic) ferrous gluconate 324 mg (37.5 mg 324 mg PO DAILY 10/13/22 02/03/23 02/03/23 History iron) tablet ketotifen fumarate 0.025 % (0.035 1 drp ophthalmic (eye) BID 10/13/22 02/02/23 02/02/23 History %) eye drops (Allergy Eye (ketotifen)) tiotropium 2.5 mcg-olodaterol 2.5 2 puff inhalation DAILY #4 grams 10/13/22 02/03/23 02/03/23 Rx mcg/actuation mist for inhalation (Stiolto Respimat) hydralazine 50 mg tablet 50 mg PO TID #90 tabs 10/20/22 02/03/23 02/03/23 Rx isosorbide mononitrate 30 mg 30 mg PO DAILY #90 tabs 11/22/22 02/03/23 02/03/23 Rx tablet,extended release 24 hr metoprolol tartrate 25 mg tablet 25 mg PO BID #180 tabs 11/22/22 02/03/23 02/03/23 Rx Diabetic Shoes with 3 inserts #1 ea 01/03/23 01/11/23 Unknown Rx torsemide 10 mg tablet 10 mg PO DAILY 01/11/23 02/03/23 02/03/23 History insulin glargine 100 unit/mL 46 unit SUBCUT DAILY 01/26/23 02/03/23 02/02/23 History subcutaneous solution (Lantus U-100 Insulin) potassium chloride 20 mEq oral 20 meq PO DAILY 01/26/23 02/03/23 02/03/23 History packet Allergies Allergy/AdvReac Type Severity Reaction Status Date / Time No Known Allergies Allergy Verified 02/03/23 06:25 Current Medications Generic Name Dose Route Start Last Admin Trade Name Freq PRN Reason Stop Dose Admin Sodium Chloride 1,000 mls @ 30 mls/hr 02/03/23 06:30 02/03/23 06:46 Sodium Chloride 0.9% IV 02/04/23 06:29 30 mls/hr .Q24H DANIELA Administration PFSH Anesthesia Medical History Atherosclerosis of coronary artery of [place] heart without angina pectoris Saenz's palsy L side Benign prostate hyperplasia Carotid stenosis Chronic kidney disease Diabetes mellitus Diastolic dysfunction Grade 1 History of echocardiogram 03/2020 History of Holter monitoring 04/2020 History of left heart catheterization 10/2021 20% LM, 50-60% proximal RCA, 70% PDA branch, mild diffuse disease other vessels. LVEDP 20 mmHg. Had Right Heart Cath also and showed mean PAP 34 mmHg and PCWP 21 mmHg. History of PFTs 10/2020 Hypertension ALANNAH (obstructive sleep apnea) HS CPAP Recurrent umbilical hernia Seasonal allergies Surgical History History of cataract extraction History of colonoscopy History of eye surgery History of placement of ear tubes History of total right hip arthroplasty History of umbilical hernia repair Hx of oral surgery Status post surgical removal of nail matrix of toe Family History Father Stroke Sister Cancer Diabetes Brother Aneurysm Denies family history of CAD (coronary artery disease) Clotting disorder Dementia Chronic kidney disease (CKD) Suicide Anesthesia complication Bleeding disorder Lung disease Social History Smoking and tobacco/nicotine status: former use of tobacco/nicotine Quit status (tobacco/nicotine): has quit using Year quit tobacco: 1986 Former quit date comment: Hx of 1 PPD x 15 Years Second hand smoke exposure: No Alcohol intake: never Substance/Drug Use: never Lives independently: Yes Household members: spouse Marital status: service: Yes Current occupational status: retired and disabled Do you think of yourself as: Straight/Heterosexual Current gender identity: Male Data Anesthesia Cardiac Studies: Echocardiogram 05/17/22 Echocardiogram Ultrasound 03/25/20 Sestamibi Stress Test (Cardiology) 03/26/20 Cardiac Event Monitor 04/02/20
[2023-02-03] MEDS: ceFAZolin 2,000 MG in sodium chloride 0.9% (plus) 50 ML 100 MG IV (07:25)
[2023-02-03] MEDS: BUPivacaine 0.5% INJ 10 mL INJECTION (07:50)
[2023-02-03] MEDS: triamcinolone 40 mg/mL SDV INJECTION (07:50)
[2023-02-03] MEDS: ROPivacaine 0.5% SDV 30 mL 150 MG INJECTION (07:50)
--- NOTE | 2023-02-03 08:03 | P.BOP_ITS ---
Date of Procedure: 02/03/2023 Surgeon: Clifton Quiroga DO [employer] Parer(s): None Procedure(s) performed: Left middle finger trigger release Right index finger trigger cortisone injection Findings of the procedure(s): Left middle finger trigger and procedure went as planned, right index finger cortisone injection went as planned Estimated blood loss: 1 cc Specimen(s) removed: None Post-operative diagnosis: Left middle finger trigger, right index finger trigger
--- NOTE | 2023-02-03 08:05 | PM.OP ---
Operative Report Date of procedure: February 03, 2023 Pre-op diagnosis: Left middle finger trigger, right index finger trigger Surgeon: Clifton Quiroga DO Procedure: Post-op diagnosis: Same Procedure done: Left middle finger?trigger?release Right index finger flexor tendon sheath cortisone injection Surgeon: Clifton Quiroga DO Estimated blood loss: 1cc Tourniquet time 7mins Complications: None Condition: stable Disposition: same day Brief History: Patient's been seen and worked up in the outpatient setting and findings consistent with preoperative diagnosis of left middle finger?trigger and right index finger trigger.? He is failed conservative treatment.? Continues to have mechanical locking and catching.? Severe pain as well.? We talked about treatment options nonoperative versus operative intervention.? ?Patient understands the risk benefits complication alternatives of surgical nonsurgical treatment options.? Understanding his risks with surgery he elects proceed with surgical intervention.? Consent obtained in the office.? Here today to proceed with surgical intervention. Plan will be for a left middle finger trigger release in the right index finger flexor tendon sheath cortisone injection. all questions answered. Procedure: Patient was seen and evaluated in the preoperative holding area.? Consent was reviewed and signed with patient.? Seen evaluated by Anesthesia Department.? Once cleared for surgery was brought back to the operative suite.? Placed in supine position on the OR table all bony prominences well-padded patient properly secured to the bed.? Patient's left arm was then placed to the armboard.? A nonsterile tourniquet applied to the left upper arm.? Patient's left upper extremity was then prepped and draped in standard orthopedic fashion.? Final timeout performed.? Patient received appropriate preoperative antibiotics. Esmarch tourniquet was used exsanguinate the left upper extremity tourniquet insufflated to 250 mmHg. Under sterile aseptic technique local digital block was performed to the left middle finger.? Once appropriately anesthetized a standard oblique incision was made centering over the A1 zander following patient's flexor crease.? Sharp scalpel incision was made only through skin and then switched to Littler dissection scissors and spread longitudinally directly over the flexor tendon sheath.? I then mobilized both radially and ulnarly and Kasdan retractors were used and placed by my entry level administrative assistant to protect neurovascular bundle.? Next I visualized the A1 zander and this was incised with a scalpel.? I then switched to dissection scissors and released the A1 zander both proximally as well as distally to its entirety.? Significant tendon sheath fluid was noted consistent with inflammation.? Mild fraying of the flexor tendons noted but no tear.? At this point I utilized a rag nail and pulled the tendons FDS and FDP out of the incision and no?triggering was noted.? I then had anesthesia wake up the patient and patient was able to actively flex and extend with no?triggering.? This point thorough irrigation was performed.? Tourniquet deflated hemostasis satisfactory with bipolar.? I then subsequently closed the incision with interrupted nylon suture.? Xeroform 4 x 4's, Kerlix and an Carlos wrap was applied for a bulky soft dressing.? Next I then identified the right index finger flexor tendon sheath over the A1 zander. This was then cleaned and prepped in standard orthopedic fashion and then sent subsequently Patient received right index finger cortisone injection under sterile aseptic technique without any issues. Injection site was then cleaned and Band-Aid applied. patient was then subsequently awakened from anesthesia and taken to PACU in stable condition tolerated procedure without issues. Disposition: Patient taken back in stable condition recovering well.? Patient will receive appropriate discharge instruction as well as pain medication postoperatively.? Patient to follow-up with me in the office in 2 weeks for repeat evaluation and incision check.? Patient understands that any questions or concerns and contact the office.? All questions answered.
[2023-02-03] MEDS: TRAMadol 50 mg Tablet PO (08:54)
--- NOTE | 2023-02-03 09:00 | ANE.PACU2 ---
Inpatient post-anesthesia follow up: Airway intact: Yes Vital signs: Temperature 97.2 F Pulse Rate 63 Respiratory Rate 16 Blood Pressure 126/71 Pulse Oximetry 95 Oxygen Delivery Me thod Room Air Oxygen Flow Rate Fraction of Inspir ed Oxygen Hydration adequate: Yes Nausea and vomiting: No Pain level: 1 Mental status: Baseline
== END 2023-02-03 09:05 | disposition home or self-care (01) ==
PROVIDERS: PCP Family Medicine; Visit Provider Student in an Organized Health Care Education/Training Program
PROC: (CPT 26055; principal; 2023-02-03 07:20)
PROC: (CPT 96372; 2023-02-03 07:20)
DX: M65.332 Trigger finger, left middle finger (principal); M65.321 Trigger finger, right index finger; J44.9 Chronic obstructive pulmonary disease, unspecified; G47.30 Sleep apnea, unspecified; E11.9 Type 2 diabetes mellitus without complications; Z86.73 Personal history of transient ischemic attack (TIA), and cerebral infarction without residual deficits; Z79.82 Long term (current) use of aspirin; Z79.84 Long term (current) use of oral hypoglycemic drugs; N40.0 Benign prostatic hyperplasia without lower urinary tract symptoms; G47.33 Obstructive sleep apnea (adult) (pediatric); Z87.891 Personal history of nicotine dependence
CPT/HCPCS: 20550; 26055; J0131; J0690; J1885; J2704; J2795; J3301; J3490; J7030

== ENCOUNTER → 2023-02-16 13:04 | Outpatient (BNVA) | payer OTHER, SELFPAY | PROVIDERS: PCP Family Medicine; Visit Provider Nurse Practitioner Family | DX: I25.10 Atherosclerotic heart disease of native coronary artery without angina pectoris (principal); I10 Essential (primary) hypertension; I65.23 Occlusion and stenosis of bilateral carotid arteries; Z87.891 Personal history of nicotine dependence | CPT/HCPCS: 99214 ==

== ENCOUNTER → 2023-02-22 08:16 | Outpatient (BNVA) | payer OTHER, SELFPAY | PROVIDERS: PCP Family Medicine; Visit Provider Student in an Organized Health Care Education/Training Program | DX: M65.332 Trigger finger, left middle finger (principal); M65.321 Trigger finger, right index finger | CPT/HCPCS: 99213 ==

== ENCOUNTER → 2023-03-07 09:04 | Outpatient (BNVA) | payer OTHER, SELFPAY | PROVIDERS: PCP Family Medicine; Visit Provider Podiatrist Foot & Ankle Surgery | DX: B35.1 Tinea unguium (principal); I73.9 Peripheral vascular disease, unspecified; G62.9 Polyneuropathy, unspecified; M20.41 Other hammer toe(s) (acquired), right foot; M20.42 Other hammer toe(s) (acquired), left foot; E11.42 Type 2 diabetes mellitus with diabetic polyneuropathy; Z79.84 Long term (current) use of oral hypoglycemic drugs; Z79.4 Long term (current) use of insulin | CPT/HCPCS: 11721 ==

== ENCOUNTER → 2023-05-23 09:16 | Outpatient (BNVA) | payer OTHER, SELFPAY | PROVIDERS: PCP Family Medicine; Visit Provider Podiatrist Foot & Ankle Surgery | DX: I73.9 Peripheral vascular disease, unspecified (principal); B35.1 Tinea unguium; G62.9 Polyneuropathy, unspecified; M20.41 Other hammer toe(s) (acquired), right foot; M20.42 Other hammer toe(s) (acquired), left foot | CPT/HCPCS: 11721 ==

== ENCOUNTER → 2023-06-01 07:53 | Outpatient (BNVA) | payer OTHER, SELFPAY | PROVIDERS: PCP Family Medicine; Visit Provider Internal Medicine Pulmonary Disease | DX: R06.02 Shortness of breath (principal) | CPT/HCPCS: 99214 ==

== ENCOUNTER → 2023-08-01 08:17 | Outpatient (BNVA) | payer OTHER, SELFPAY | PROVIDERS: PCP Family Medicine; Visit Provider Podiatrist Foot & Ankle Surgery | DX: B35.1 Tinea unguium (principal); I73.9 Peripheral vascular disease, unspecified; G62.9 Polyneuropathy, unspecified; M20.41 Other hammer toe(s) (acquired), right foot; M20.42 Other hammer toe(s) (acquired), left foot; N18.9 Chronic kidney disease, unspecified; E11.9 Type 2 diabetes mellitus without complications; E11.42 Type 2 diabetes mellitus with diabetic polyneuropathy; Z79.84 Long term (current) use of oral hypoglycemic drugs; Z79.4 Long term (current) use of insulin | CPT/HCPCS: 11721 ==

== ENCOUNTER → 2023-10-10 12:35 | Outpatient (BNVA) | payer OTHER, SELFPAY | PROVIDERS: PCP Family Medicine; Visit Provider Internal Medicine Cardiovascular Disease | DX: I25.10 Atherosclerotic heart disease of native coronary artery without angina pectoris (principal); I65.23 Occlusion and stenosis of bilateral carotid arteries; I49.8 Other specified cardiac arrhythmias; Z87.891 Personal history of nicotine dependence; I13.10 Hypertensive heart and chronic kidney disease without heart failure, with stage 1 through stage 4 chronic kidney disease, or unspecified chronic kidney disease; E11.22 Type 2 diabetes mellitus with diabetic chronic kidney disease; N18.9 Chronic kidney disease, unspecified; Z79.4 Long term (current) use of insulin | CPT/HCPCS: 99214 ==

== ENCOUNTER 2023-10-26 10:17 | Outpatient (CLI) | payer OTHER, SELFPAY ==
--- NOTE | 2023-10-26 11:45 | USCV_ITS ---
Mei Mathews Age: 73 Gender: M : 1950 Exam Date: 10/26/2023 10:37 Ordering Phys: Mallorie Harmon MD ([email or web address]) Technologist: RAJAT Exam Location[place] [facility] [place] Indication: stenosis Risk Factors: Previous Vascular Surgery: Right Brachial BP: / Left Brachial BP: / Right Left Velocity (cm/s) Spectral Plaque Velocity (cm/s) Spectral Plaque Syst/Diast Broadening Syst/Diast Broadening 69.80/ 12.80 Prox CCA 84.60 / 15.90 50.30/ 11.10 Mid CCA 86.90 / 16.30 53.10/ 11.10 Distal CCA 88.50 / 19.50 61.50/ 12.70 Prox ICA 72.00 / 18.50 70.00/ 17.70 Mid ICA 67.20 / 19.30 51.10/ 13.40 Distal ICA 43.80 / 6.20 97.00 ECA 93.10 1.30 ICA/CCA 0.80 Antegrade Vertebral Antegrade 52.10/ 7.90 cm/s 60.30/ 14.50 cm/s Tri Subclavian Tri 69.90 223.9 0 FINDINGS Mild to moderate diffuse plaque in the common carotid arteries bilaterally Moderate to heterogenous plaques of the bifurcations bilaterally Antegrade flow in the vertebral arteries bilaterally Normal Doppler flow velocities in the external carotid arteries bilaterally Elevated velocity in the left proximal subclavian artery CONCLUSIONS Moderate to heterogenous plaques of the bifurcations bilaterally with Doppler features suggesting less than 50% stenosis. Mild to moderate diffuse plaque in the common carotid arteries bilaterally Elevated velocity in the left subclavian artery, may suggest greater than 50% stenosis Consider CTA, to better evaluate the proximal subclavian artery, if clinically indicated Dr Mallorie Harmon MD [facility] (Electronically Signed) Final Date: 02 November 2023 10:05 S
== END 2023-10-26 10:18 | disposition home or self-care (01) ==
LOC: RAD 10:17
PROVIDERS: PCP Family Medicine; Visit Provider Internal Medicine Cardiovascular Disease
DX: I65.23 Occlusion and stenosis of bilateral carotid arteries (principal)
CPT/HCPCS: 93880

== ENCOUNTER 2023-11-18 13:05 | Outpatient (CLI) | payer OTHER, SELFPAY ==
--- NOTE | 2023-11-18 13:30 | CT_ITS ---
WS: [id number] CT ANGIOGRAM CAROTID ARTERIES HISTORY: I49.9 - Cardiac arrhythmia, unspecified TECHNIQUE: CT angiogram is performed of the carotid arteries. During arterial injection imaging is ob tained from the skull base to the aortic arch in 1.25 mm imaging. Coronal and sagittal reformats are submitted, MIP imaging also reviewed. Additional multiplanar reformats of the carotid arteries are moser bmitted. NASCET criteria utilized. All CT scans at [facility] use at least one of these dose optimization techniques: automated exposure control; mA and/or kV adjustment per patient size (includ es targeted exams where dose is matched to clinical indication); or iterative reconstruction. CONTRAST: Omnipaque 350; 100 mL IV. DLP: 428.51 mGy.cm COMPARISON: Carotid ultrasound 10/26/2023 Right carotid: Common carotid artery: Tortuous innominate artery.. Scattered plaque throughout the cervical carotid artery. Increasing plaque towards the bifurcation. Internal carotid artery: Moderate plaque at the bifurcation. Stenosis calculated at 37%. Visually the stenosis appears closer to 50%. External carotid artery: Patent. Left carotid: Common carotid artery: Arises normally from the aortic arch. No significant stenosis. Internal carotid artery: Dense calcified plaque at the bifurcation into the proximal ICA. Stenosis es timated at 63%. External carotid artery: Patent. Right vertebral artery: Small caliber RIGHT vertebral artery. High-grade stenosis at the C3 level. Left vertebral artery: Dominant vertebral artery. Osteophyte encroaches into the transverse foramina at C5 displacing the vertebral artery but not occluding it. Subclavian arteries: No stenosis or abnormality identified. Upper thorax: Emphysematous changes. No mass. Mild atherosclerosis aortic arch. Thyroid gland: Normal. Osseous structures: Advanced degenerative changes throughout the cervical spine. Severe disc base edis rowing at C3-4, C4-5 and C5-6. Skull base: Dense arterial calcification through the cavernous sinuses. CT/CT angio neck 95401 IMPRESSION: 1. LEFT cervical carotid artery stenosis 63%. 2. RIGHT cervical carotid artery stenosis 50%. 3. There are dense calcified plaque in the proximal cervical carotid arteries. 4. Additional atheromatous calcified plaque in the cavernous portion of the ca rotid arteries with stenosis estimated near 50 to 60% bilaterally, LEFT greater than RIGHT. 5. LEFT vertebral artery encroachment by an osteophyte in the transverse javon en of C5.
[2023-11-18 14:14] LABS: Blood Urea Nitrogen 30 mg/dL (8-23)
[2023-11-18] MEDS: iohexol 350 mg/mL 500 mL Btl (per mL) IV (14:24)
== END 2023-11-18 13:06 | disposition home or self-care (01) ==
LOC: RAD 13:06
PROVIDERS: PCP Family Medicine; Visit Provider Internal Medicine Cardiovascular Disease
DX: I49.9 Cardiac arrhythmia, unspecified (principal); I65.23 Occlusion and stenosis of bilateral carotid arteries; R06.02 Shortness of breath; I77.9 Disorder of arteries and arterioles, unspecified; M25.78 Osteophyte, vertebrae
CPT/HCPCS: 70498; 82565; 84520; Q9967

== ENCOUNTER 2023-12-07 11:45 | Outpatient (CLI) | payer OTHER, SELFPAY ==
[2023-12-07 13:14] LABS: Anion Gap 19.4 (5-19); Blood Urea Nitrogen 29 mg/dL (8-23); Calcium 9.4 mg/dL (8.5-10.5); Carbon Dioxide 19 mmol/L (22-29); Chloride 106 mmol/L (98-107); Glucose 150 mg/dL (65-115); Osmolality Calculated 299 mOsm/kg (285-295); Potassium 4.4 mmol/L (3.5-5.1); Sodium 140 mmol/L (136-145)
== END 2023-12-07 11:46 | disposition home or self-care (01) ==
LOC: LAB 11:45
PROVIDERS: PCP Family Medicine; Visit Provider Internal Medicine Cardiovascular Disease
DX: N18.9 Chronic kidney disease, unspecified (principal); I12.9 Hypertensive chronic kidney disease with stage 1 through stage 4 chronic kidney disease, or unspecified chronic kidney disease
CPT/HCPCS: 36415; 80048

== ENCOUNTER → 2023-12-12 12:32 | Outpatient (BNVA) | payer OTHER, SELFPAY | PROVIDERS: PCP Family Medicine; Visit Provider Podiatrist Foot & Ankle Surgery | DX: B35.1 Tinea unguium (principal); I73.9 Peripheral vascular disease, unspecified; G62.9 Polyneuropathy, unspecified; M20.41 Other hammer toe(s) (acquired), right foot; M20.42 Other hammer toe(s) (acquired), left foot; N18.9 Chronic kidney disease, unspecified; E11.29 Type 2 diabetes mellitus with other diabetic kidney complication; E11.42 Type 2 diabetes mellitus with diabetic polyneuropathy; Z79.84 Long term (current) use of oral hypoglycemic drugs; Z79.4 Long term (current) use of insulin | CPT/HCPCS: 11721 ==

== ENCOUNTER → 2024-02-13 13:07 | Outpatient (BNVA) | payer OTHER, SELFPAY | PROVIDERS: PCP Family Medicine; Visit Provider Podiatrist Foot & Ankle Surgery | DX: B35.1 Tinea unguium (principal); I73.9 Peripheral vascular disease, unspecified; G62.9 Polyneuropathy, unspecified; M20.41 Other hammer toe(s) (acquired), right foot; M20.42 Other hammer toe(s) (acquired), left foot; N18.9 Chronic kidney disease, unspecified; E11.42 Type 2 diabetes mellitus with diabetic polyneuropathy; Z79.84 Long term (current) use of oral hypoglycemic drugs; Z79.4 Long term (current) use of insulin | CPT/HCPCS: 11721 ==

== ENCOUNTER 2024-05-01 10:52 | Outpatient (CLI) | payer OTHER, SELFPAY ==
[2024-05-01 11:41] LABS: Basophils # 0.1 10^3/uL (0.0-0.1); Basophils % 0.7 %; Eosinophils # 0.2 10^3/uL (0.0-0.8); Eosinophils % 2.1 %; Hematocrit 43.8 % (37-53); Lymphocytes # 2.1 10^3/uL (0.8-4.8); Lymphocytes % 24.1 %; Mean Corpuscular HGB Conc 33.8 g/dL (30-55); Mean Corpuscular Hemoglobin 29.7 pg (27-33); Mean Corpuscular Volume 87.8 fl (82-101); Mean Platelet Volume 9.6 fL (7.4-10.4); Monocytes # 0.7 10^3/uL (0.2-0.9); Monocytes % 7.7 %; Neutrophils % 65.2 %; Nucleated Red Blood Cells % 0 %; Platelet Count 178 10^3/cmm (157-399); Red Blood Count 4.99 10^6/uL (3.85-5.65); Red Cell Distribution Width 12.9 % (12.1-15.1); White Blood Count 8.59 10^3/uL (3.29-11.43)
[2024-05-01 12:02] LABS: Calcium 9.5 mg/dL (8.5-10.5)
[2024-05-01 12:03] LABS: Albumin Level 4.4 g/dL (3.5-5.2); Blood Urea Nitrogen 17 mg/dL (8-23); Calcium 9.4 mg/dL (8.5-10.5); Carbon Dioxide 26 mmol/L (22-29); Chloride 102 mmol/L (98-107); Glucose 92 mg/dL (65-115); Phosphorus 3.3 mg/dL (2.5-4.5); Sodium 139 mmol/L (136-145)
[2024-05-01 12:08] LABS: Parathyroid Hormone 63.8 pg/mL (15-65)
[2024-05-01 12:08] LABS: Creatinine Urine, Random 41 mg/dL (39-259); Microalbumin Random Urine 16 ug/dL (0-20)
[2024-05-01 12:13] LABS: Microalbum Creatinine Ratio Ur 390 mg/dL (0-20)
[2024-05-01 12:18] LABS: 25 Hydroxy Vitamin D 31 ng/mL (30-100)
== END 2024-05-01 10:53 | disposition home or self-care (01) ==
LOC: LAB 10:56
PROVIDERS: PCP Family Medicine; Visit Provider Registered Nurse
DX: N18.31 Chronic kidney disease, stage 3a (principal); E11.42 Type 2 diabetes mellitus with diabetic polyneuropathy; I65.23 Occlusion and stenosis of bilateral carotid arteries; B35.1 Tinea unguium; I25.10 Atherosclerotic heart disease of native coronary artery without angina pectoris; I10 Essential (primary) hypertension; L13.9 Bullous disorder, unspecified; I51.89 Other ill-defined heart diseases; I73.9 Peripheral vascular disease, unspecified; G62.9 Polyneuropathy, unspecified; I49.9 Cardiac arrhythmia, unspecified; M20.41 Other hammer toe(s) (acquired), right foot; M20.42 Other hammer toe(s) (acquired), left foot; N18.9 Chronic kidney disease, unspecified; Z79.4 Long term (current) use of insulin; Z79.84 Long term (current) use of oral hypoglycemic drugs
CPT/HCPCS: 10140; 11721; 36415; 80069; 82044; 82306; 82310; 83970; 85025; 99213; 99214

== ENCOUNTER 2024-05-09 09:59 | Outpatient (CLI) | payer OTHER, SELFPAY ==
--- NOTE | 2024-05-09 13:15 | CT_ITS ---
WS: [id number] CTA THORACIC AORTA WITH AND WITHOUT CONTRAST HISTORY: ascending aortic aneurysm TECHNIQUE: CTA imaging of the thorax is performed with and without contrast. After noncontrast imagin g is performed, CT angiogram is performed during injection of Omnipaque 350; 100 mL IV.. Sagittal and coronal reconstructions, sagittal and coronal MIP imaging is submitted. All CT scans at [facility] use at least one of these dose optimization techniques: automated exposure control; mA and/or kV adjustment per patient size (includes targeted exams where dose is matched to clinical indication) ; or iterative reconstruction. DLP: 987.40 mGy.cm COMPARISON: 07/21/2021, echocardiogram 05/17/2022 Mild atherosclerosis and ectasia ascending thoracic aorta through the aortic arch. There is scattered plaque and atherosclerotic disease. No ulcerated plaque and no dissection. Largest diameter of the ascending aorta 3.9 cm. Pulmonary trunk at the same location is 3.5 cm. Vilma l appearance of the sinotubular junction and sinus of Valsalva. Atherosclerosis continues through the descending aorta into the suprarenal aorta. Small amount of plaque extends into the proximal great v essels. No pulmonary mass or pneumonia. Mild groundglass attenuation along the medial RIGHT lower lobe adjace nt to the spine extending into the azygoesophageal recess. Small mediastinal and hilar lymph nodes. N o adenopathy. Mild cardiac enlargement. Small hiatal hernia. Cholelithiasis without acute cholecystitis. Normal adrenal glands. Advanced degenerative disc disease and spondylosis throughout the thoracic spi ne. CT/CT angio chest [id number] IMPRESSION: 1. Mildly ectatic but nonaneurysmal ascending thoracic aorta to 3.9 cm. 2. Scattered calcified atheromatous plaque within the thoracic aorta. 3. No pulmonary mass or nodule. 4. Mild enlarged heart.
== END 2024-05-09 10:00 | disposition home or self-care (01) ==
LOC: RAD 09:59
PROVIDERS: PCP Family Medicine; Visit Provider Nurse Practitioner Family
DX: I71.21 Aneurysm of the ascending aorta, without rupture (principal); I65.23 Occlusion and stenosis of bilateral carotid arteries; I70.0 Atherosclerosis of aorta; I51.7 Cardiomegaly; R93.89 Abnormal findings on diagnostic imaging of other specified body structures; K44.9 Diaphragmatic hernia without obstruction or gangrene; K80.20 Calculus of gallbladder without cholecystitis without obstruction; M51.34 Other intervertebral disc degeneration, thoracic region; M47.894 Other spondylosis, thoracic region
CPT/HCPCS: 71275; 93880

== ENCOUNTER 2024-06-28 12:18 | Outpatient (CLI) | payer OTHER, SELFPAY ==
[2024-06-28 13:10] LABS: Anion Gap 16.3 (5-19); Blood Urea Nitrogen 28 mg/dL (8-23); Calcium 9.2 mg/dL (8.5-10.5); Carbon Dioxide 22 mmol/L (22-29); Chloride 102 mmol/L (98-107); Glucose 137 mg/dL (65-115); Osmolality Calculated 290 mOsm/kg (285-295); Potassium 4.3 mmol/L (3.5-5.1); Sodium 136 mmol/L (136-145)
== END 2024-06-28 12:19 | disposition home or self-care (01) ==
LOC: LAB 12:21
PROVIDERS: PCP Family Medicine; Visit Provider Nurse Practitioner Family
DX: R06.02 Shortness of breath (principal)
CPT/HCPCS: 36415; 80048